=== PATIENT | female | born 1985 | race Caucasian/White ===

== ENCOUNTER 2017-09-13 07:33 | Emergency (ER) | payer BC, SELFPAY ==
[2017-09-13 07:37] VITALS: BP 132/75; PULSE 85; RESP 16; TEMP 36.2; O2SAT 98; BMI 35.3
--- NOTE | 2017-09-13 07:43 | RAD_ITS ---
STUDY: X-RAY - RIGHT HAND REASON FOR EXAM: Female, 31 years old. Right hand pain TECHNIQUE: 3 view(s) of the hand. COMPARISON: Right wrist films 08/25/2010 FINDINGS: Normal radiocarpal articulation. Normal distal radioulnar joint. Normal visualized carpal bones. Normal carpal articulations Normal carpometacarpal articulation of the thumb. Normal second through fifth carpometacarpal joints. There is deformity to the distal fifth metacarpal consistent with remote fracture. I believe this was present on the prior study of 08/25/2010. Normal metacarpophalangeal joint of the thumb. Normal interphalangeal joint of the thumb. Normal proximal and distal phalanges of the thumb. Normal metacarpophalangeal joints of the second through fifth fingers. Normal proximal and distal interphalangeal joints of the second through fifth fingers. Normal phalanges of the second through fifth fingers. The soft tissue structures are unremarkable. RAD/Hand Min 3 Views IMPRESSION: Well healed, old fracture of the fifth metacarpal. No acute bony abnormality. Electronically Signed: Amarjit Valverde DO at 8:19 EDT Tel , Service support ,
[2017-09-13] MEDS: Naproxen 500 MG Tablet PO (07:55)
--- NOTE | 2017-09-13 08:30 | ED.VISSUMM ---
- ER Visit Summary Date of Service: 09/13/17 Chief Complaint: Right hand pain History of Present Illness: The patient is a [address] Julián Kwon. She is right-hand dominant. She reports that this morning she was hitting a door with her right hand when she had the abrupt onset of a sharp pain is 10 out of 10 with movement 8 out of 10 at rest. She is not taking anything for pain. She denies any paresthesias. She denies any other complaints. Physical Examination: Vitals: Stable. Afebrile. General: Well-nourished and well-developed. Head: Normocephalic atraumatic. Neck: Supple, no lymphadenopathy. No JVD. Nontender. Cardiovascular: Regular rate and rhythm. No murmurs. Respiratory: No respiratory distress. Clear to auscultation bilaterally. Abdominal: Soft, nontender, nondistended, normal bowel sounds. No guarding, rebound, or peritoneal signs. Back: Nontender. Extremities: Moderate tenderness palpation over the medial portion of her right hand over the mid to distal fifth metacarpal. No soft tissue swelling. No contusion. She is neurovascular intact distal to this., no edema. Skin: Normal color, no rash. Neurologic: Alert and oriented ?3. Cranial nerves II through XII are intact. Normal strength and sensation. Psych: Normal affect. Test Results: Right hand x-ray shows a well-healed fifth metacarpal fracture with no acute fracture. Emergency Department Course and Treatment: Patient is treated with naproxen. She is resting comfortably. Treatment Plan: She will be discharged prescription for naproxen. Instructed to follow-up with Dr. Julián Kwon in 1 week if not improving. Disposition: To home in improved and stable condition. Impression: 1. Right hand contusion. This note was generated with [employer] dictation software. It may contain incorrect words, spelling, and punctuation that were not noted in review of the chart prior to signing ED Disposition - Plan for ED Patient: Chief Complaint: Upper Extremity Injury Instructions: ED Contusion Hand Prescriptions: Naproxen [Naprosyn] 500 mg PO BID #14 tablet Referrals: Julián Kwon Jr., MD [Primary Care Provider] - 1 Week if not improving
[2017-09-13 08:43] VITALS: BP 118/69; PULSE 72; RESP 15; O2SAT 97
== END 2017-09-13 08:43 | disposition home or self-care (01) ==
LOC: ED 08:00
PROVIDERS: Emergency Provider Emergency Medicine; Family Provider Internal Medicine; PCP Internal Medicine
DX: S60.221A Contusion of right hand, initial encounter (principal); W22.8XXA Striking against or struck by other objects, initial encounter; Y93.9 Activity, unspecified; Y92.9 Unspecified place or not applicable; Y99.9 Unspecified external cause status; Z72.0 Tobacco use; Z79.899 Other long term (current) drug therapy
CPT/HCPCS: 73130; 99283

== ENCOUNTER 2017-12-28 04:06 | Emergency (ER) | payer BC, SELFPAY ==
[2017-12-28 04:07] VITALS: BP 118/79; PULSE 91; RESP 18; TEMP 36.8; O2SAT 98; BMI 38.4
--- NOTE | 2017-12-28 04:20 | ED.VIS.GEN ---
History of Present Illness Chief Complaint: Ear Problem Informant: Patient Onset: Days - 2-3 Context: Gradual Onset Timing: Continuous Quality: sore/ache Location: left ear, w/ radiation into left jaw/neck Current Severity: Moderate Maximum Severity: Moderate Worsened by: pulling on ear Relieved by: nothing Associated Symptoms: none. no fevers, change in hearing, recent swimming, recent URI, ear d/c Recent Illness/Hospitalization: No Past Medical History - Allergies and Home Meds Allergies/Adverse Reactions: Allergies latex Adverse Reaction (Verified 12/28/17 04:07) Itching Primary Care Physician: Julián Kwon Jr., MD [Primary Care Provider] - Past Medical History: None Smoking Status: Current every day smoker Review of Systems General: Denies: Chills, Fever, - - no dizziness Eyes: Denies: Visual changes - bilaterally ENT: Reports: Left ear pain. Denies: Rhinorrhea, Sore throat Cardiovascular: Denies: Chest pain Respiratory: Denies: Dyspnea, Cough Gastrointestinal: Denies: Nausea, Vomiting Physical Exam Vital Signs/Narrative: Vital Signs Temp Pulse Resp BP Pulse Ox 12/28/17 04:07 98.2 F 91 18 118/79 98 Inital Vital Signs reviewed: Yes General: Well nourished, Well developed, - - nad Head: Normocephalic, Atraumatic Eyes: Perrl, EOMI ENT: Moist mucous membranes, No rhinorrhea, TM's clear, - - Edentulous. No gingival abnormality or tenderness. No trismus. Right EAC unremarkable, nontender. Left EAC erythematous posteriorly, very tender, and pain is increased with pulling on pinna and pushing on tragus. No edema of the canal and no discharge.. Negative for: Nasal congestion, Sinus tenderness Neck: Supple, No lymphadenopathy Skin: Normal color, No rash Neurological: Alert, Oriented x3, Cranial nerves II-XII grossly intact, Normal Strength, Normal Sensation, Normal Gait Psychological: Normal affect Diagnostic/Tx/Re-eval - Medical Decision Making Consistent with otitis externa. Will place her on Cortisporin otic suspension drops to her here in the emergency department. ED Disposition - Plan for ED Patient: Disposition: Home or Assisted Living Chief Complaint: Ear Problem Diagnosis: Left otitis externa Instructions: ED Otitis Externa Referrals: Julián Kwon Jr., MD [Primary Care Provider] - 3-5 Days if not improving Additional Instructions: Cortisporin otic suspension: 4 drops to affected ear 3-4 times daily for 5-7 days or until better
[2017-12-28] MEDS: Neomycin Sulfate/Polymyxin/Hc Susp 10 ML Bottle 4 DRP OTIC (04:27)
[2017-12-28 04:32] VITALS: BP 118/79; PULSE 91; RESP 18
== END 2017-12-28 04:32 | disposition home or self-care (01) ==
PROVIDERS: Emergency Provider Emergency Medicine; Family Provider Internal Medicine; PCP Internal Medicine
DX: H60.92 Unspecified otitis externa, left ear (principal); F17.200 Nicotine dependence, unspecified, uncomplicated; Z79.899 Other long term (current) drug therapy
CPT/HCPCS: 99282

== ENCOUNTER 2018-04-02 09:42 | Emergency (ER) | payer BC, SELFPAY ==
[2018-04-02 09:43] VITALS: BP 143/73; PULSE 96; RESP 12; TEMP 37; O2SAT 99; BMI 39.3
--- NOTE | 2018-04-02 09:57 | ED.VISSUMM ---
- ER Visit Summary Date of Service: 04/02/18 Chief Complaint: Abdominal pain History of Present Illness: The patient is a 32 F patient reports epigastric abdominal pain for the past week. Intermittent. Symptoms worse with food. Nausea without vomiting. No diarrhea. Normal bowel movements. Last one this morning. No fever, chills, sweats. No urinary symptoms. Last menstrual period within the last 3 weeks with normal cycles. Denies previous similar symptoms in the past. Patient reports saw her PCP today and was sent to the ED for possible CT scan. Physical Examination: General: Alert and oriented ?3, no acute distress HEENT: Normocephalic, atraumatic. Moist mucosa membranes Neck: supple, nontender. Cardiovascular: Regular rate and rhythm, no murmurs Respiratory: Normal breath sounds, symmetric, no distress Abdomen: Soft, mild epigastric tenderness without guarding or rebound, nondistended. Negative Montes's and McBurney's tenderness. No left lower quadrant tenderness. Extremities: Nontender, no edema, pulses intact ?4 Neuro: no focal neurological deficits. Test Results: White count 10.6, Hemoccult 14.2. Creatinine 0.92. Lipase 68. Liver enzymes normal. Emergency Department Course and Treatment: Patient history concerns for gastritis symptoms with worsening pain with food. No right upper quadrant tenderness. Discuss patient symptoms risks and benefits testing and imaging. She agreed with a GI cocktail which had transient relief. Reevaluation with mild discomfort she would like labs which was obtained and drawn normal ranges. Protonix was started. She is okay not receiving image studies today. She will monitor her stools. She started on Prilosec and Carafate. I did discuss with her physician Dr. Kwon update on plan of care. He reports he will follow up with patient as an outpatient. This was explained to the patient. Treatment Plan: [] Disposition: Discharge Impression: Gastritis with epigastric abdominal pain This note was generated with [employer] dictation software. It may contain incorrect words, spelling, and punctuation that were not noted in review of the chart prior to signing ED Disposition - Plan for ED Patient: Disposition: Home or Assisted Living Chief Complaint: Abd Pain Diagnosis: Gastritis Instructions: ED PUD Vs Gastritis Prescriptions: Omeprazole 40 mg PO DAILY #30 capsule. Sucralfate [Carafate] 1 gm PO 4X/DAY #60 tablet Referrals: Julián Kwon Jr., MD [Primary Care Provider] - 5-7 Days
[2018-04-02] MEDS: Mag Hydrox/Al Hydrox/Simeth 30 ML UDC PO (10:10)
[2018-04-02 10:53] LABS: Absolute Lymphocyte Count 2.63 X10^3/ul (0.83-4.51); Absolute Neutrophil Count 7.2 X10^3/uL (2.0-7.7); Basophil# 0.04 X10^3/uL; Basophil% 0.4 % (0-1); Eosinophil# 0.12 X10^3/uL; Eosinophils% 1.1 % (0-5); Hematocrit 43.2 % (37-47); Hemoglobin 14.1 g/dl (12.0-15.0); Lymphocyte # 2.63 X10^3/ul (4.0); Lymphocyte % 24.9 % (19-41); Mean Corp Hgb Conc 32.6 g/gl (32-36); Mean Corpuscular Hgb 30.2 pg (27.0-32.0); Mean Corpuscular Volume 92.5 fL (81-99); Mean Platelet Vol. 9.4 fl (6.2-12.0); Monocyte# 0.58 X10^3/uL; Monocyte% 5.5 % (0-10); Neutrophil # 7.16 X10^3/uL (2.7-7.7); Neutrophil % 67.9 % (47-70); Platelet Count 375 K/mm3 (150-450); RBC Distribution Width CV 13.3 % (11.6-14.6); RBC Distribution Width SD 44.7 fl (35.1-43.9); Red Blood Count 4.67 M/mm3 (4.2-5.4); White Blood Count 10.6 K/mm3 (4.4-11.0)
[2018-04-02 10:54] LABS: POSITIVE COUNT NO; POSITIVE DIFFERENTIAL NO; POSITIVE MORPHOLOGY NO
[2018-04-02 11:08] LABS: BUN 10 mg/dL (7-18); Creatinine, Serum 0.92 mg/dL (0.55-1.02); Estimated Creatinine Clearance 73.96 ml/min; Glucose 78 mg/dL (74-106)
[2018-04-02 11:09] LABS: ALB/GLOB Ratio 0.9 RATIO (0.9-2.4); AST(SGOT) 13 U/L (15-37); Alanine Aminotransfer ALT/SGPT 18 U/L (13-56); Albumin, Serum 3.5 g/dL (3.2-5.0); Alkaline Phosphatase 91 U/L (45-117); Anion Gap 5 (5-15); BUN/Creat Ratio 10.9 RATIO (10-20); Calcium,Total 8.3 mg/dL (8.5-10.1); Chloride 104 mmol/L (98-107); EST Glomerular Filtration Rate 77 mL/min (>60); Est Glom Filt Rate - Afr Amer 93 mL/min (>60); Lipase 68 U/L (73-393); Potassium 3.9 mmol/L (3.5-5.1); Protein, Total 7.5 g/dL (6.4-8.2); Sodium Level 137 mmol/L (136-145)
[2018-04-02 11:28] LABS: Pregnancy, Serum, hCG Quali. NEGATIVE Negative (0-9 Nonpreg)
[2018-04-02 11:47] VITALS: RESP 16
== END 2018-04-02 11:54 | disposition home or self-care (01) ==
PROVIDERS: Emergency Provider Emergency Medicine; Family Provider Internal Medicine; PCP Internal Medicine
DX: K29.70 Gastritis, unspecified, without bleeding (principal); F32.9 Major depressive disorder, single episode, unspecified; F98.8 Other specified behavioral and emotional disorders with onset usually occurring in childhood and adolescence; Z72.0 Tobacco use; Z79.899 Other long term (current) drug therapy
CPT/HCPCS: 80053; 83690; 84703; 85025; 96365; 99284

== ENCOUNTER → 2018-07-26 11:44 | Outpatient (CLI) | payer BC, SELFPAY ==
[2018-07-26 11:42] VITALS: BMI 40.5
[2018-07-26 12:51] LABS: Absolute Lymphocyte Count 3.21 X10^3/ul (0.83-4.51); Absolute Neutrophil Count 8.3 X10^3/uL (2.0-7.7); Basophil# 0.03 X10^3/uL; Basophil% 0.2 % (0-1); Eosinophil# 0.17 X10^3/uL; Eosinophils% 1.3 % (0-5); Hematocrit 43.8 % (37-47); Hemoglobin 14.1 g/dl (12.0-15.0); Lymphocyte # 3.21 X10^3/ul (4.0); Lymphocyte % 25.2 % (19-41); Mean Corp Hgb Conc 32.2 g/gl (32-36); Mean Corpuscular Hgb 29.1 pg (27.0-32.0); Mean Corpuscular Volume 90.3 fL (81-99); Mean Platelet Vol. 10.2 fl (6.2-12.0); Monocyte# 0.97 X10^3/uL; Monocyte% 7.6 % (0-10); Neutrophil # 8.33 X10^3/uL (2.7-7.7); Neutrophil % 65.4 % (47-70); Platelet Count 409 K/mm3 (150-450); Red Blood Count 4.85 M/mm3 (4.2-5.4); White Blood Count 12.8 K/mm3 (4.4-11.0)
[2018-07-26 12:57] LABS: POSITIVE COUNT NO; POSITIVE DIFFERENTIAL NO; POSITIVE MORPHOLOGY NO
== END ==
LOC: BIMLAB 11:45
PROVIDERS: Family Provider Internal Medicine; PCP Internal Medicine; Visit Provider Internal Medicine
DX: D72.829 Elevated white blood cell count, unspecified (principal)
CPT/HCPCS: 36415; 85025

== ENCOUNTER → 2018-09-27 09:23 | Outpatient (CLI) | payer BC, SELFPAY ==
[2018-09-27 09:00] VITALS: BMI 40.9
[2018-09-27 12:42] LABS: Amphetamine Urine VISTA POSITIVE (<1000 ng/mL); Barbiturate Urine VISTA NEGATIVE (< 200 ng/mL); Benzodiazepine Urine VISTA NEGATIVE (< 200 ng/mL); Cocaine Urine VISTA NEGATIVE (< 300 ng/mL); Ecstacy Urine VISTA POSITIVE (< 500 ng/mL); Methadone Urine VISTA NEGATIVE (< 300 ng/mL); PCP Urine VISTA NEGATIVE (< 25 ng/mL); THC Urine VISTA NEGATIVE (< 50 ng/mL); Vista UDS pH Range 6
== END ==
LOC: BIMLAB 09:24
PROVIDERS: Family Provider Internal Medicine; PCP Internal Medicine; Visit Provider Internal Medicine
DX: F90.9 Attention-deficit hyperactivity disorder, unspecified type (principal)
CPT/HCPCS: 80307

== ENCOUNTER → 2019-01-03 08:23 | Outpatient (CLI) | payer BC, SELFPAY ==
[2019-01-03 08:02] VITALS: BMI 40.4
[2019-01-03 12:53] LABS: Amphetamine Urine VISTA POSITIVE (<1000 ng/mL); Barbiturate Urine VISTA NEGATIVE (< 200 ng/mL); Benzodiazepine Urine VISTA NEGATIVE (< 200 ng/mL); Cocaine Urine VISTA NEGATIVE (< 300 ng/mL); Ecstacy Urine VISTA NEGATIVE (< 500 ng/mL); Methadone Urine VISTA NEGATIVE (< 300 ng/mL); PCP Urine VISTA NEGATIVE (< 25 ng/mL); THC Urine VISTA NEGATIVE (< 50 ng/mL); Vista UDS pH Range 5
== END ==
LOC: BIMLAB 08:24
PROVIDERS: Family Provider Internal Medicine; PCP Internal Medicine; Visit Provider Internal Medicine
DX: F90.9 Attention-deficit hyperactivity disorder, unspecified type (principal)
CPT/HCPCS: 80307

== ENCOUNTER → 2019-04-04 08:13 | Outpatient (CLI) | payer BC, SELFPAY ==
[2019-04-04 07:56] VITALS: BMI 41.6
[2019-04-04 12:38] LABS: Amphetamine Urine VISTA POSITIVE (<1000 ng/mL); Barbiturate Urine VISTA NEGATIVE (< 200 ng/mL); Benzodiazepine Urine VISTA NEGATIVE (< 200 ng/mL); Cocaine Urine VISTA NEGATIVE (< 300 ng/mL); Ecstacy Urine VISTA NEGATIVE (< 500 ng/mL); Methadone Urine VISTA NEGATIVE (< 300 ng/mL); PCP Urine VISTA NEGATIVE (< 25 ng/mL); THC Urine VISTA NEGATIVE (< 50 ng/mL); Vista UDS pH Range 5
[2019-04-04 12:38] LABS: Thyroid Stim Hormone (TSH) 1.38 uIU/mL (0.358-3.74)
== END ==
PROVIDERS: Family Provider Internal Medicine; PCP Internal Medicine; Visit Provider Nurse Practitioner Family
DX: F90.9 Attention-deficit hyperactivity disorder, unspecified type (principal); F15.20 Other stimulant dependence, uncomplicated; E66.9 Obesity, unspecified
CPT/HCPCS: 36415; 80307; 84443

== ENCOUNTER → 2019-10-01 12:34 | Outpatient (CLI) | payer BC, SELFPAY ==
[2019-10-01 08:19] VITALS: BMI 42.8
[2019-10-01 13:46] LABS: Absolute Lymphocyte Count 2.78 X10^3/uL (0.83-4.51); Absolute Neutrophil Count 9.7 X10^3/uL (2.0-7.7); Basophil# 0.07 X10^3/uL; Basophil% 0.5 % (0-1); Eosinophil# 0.13 X10^3/uL; Hematocrit 41.5 % (37-47); Lymphocyte # 2.78 X10^3/ul (4.0); Lymphocyte % 20.6 % (19-41); Mean Corp Hgb Conc 31.3 g/dL (32-36); Mean Corpuscular Hgb 28.1 pg (27.0-32.0); Mean Corpuscular Volume 89.6 fL (81-99); Mean Platelet Vol. 10.2 fl (6.2-12.0); Monocyte# 0.82 X10^3/uL; Monocyte% 6.1 % (0-10); NRBC Flagged by Analyzer 0 % (0-5); Neutrophil # 9.65 X10^3/uL (2.7-7.7); Neutrophil % 71.4 % (47-70); Platelet Count 472 K/mm3 (150-450); RBC Distribution Width CV 14.8 % (11.6-14.6); Red Blood Count 4.63 M/mm3 (4.2-5.4); White Blood Count 13.5 K/mm3 (4.4-11.0)
[2019-10-01 14:08] LABS: ALB/GLOB Ratio 0.8 RATIO (0.9-2.4); AST(SGOT) 16 U/L (15-37); Alanine Aminotransfer ALT/SGPT 22 U/L (13-56); Albumin, Serum 3.7 g/dL (3.2-5.0); Alkaline Phosphatase 109 U/L (45-117); Anion Gap 8 (5-15); BUN 6 mg/dL (7-18); BUN/Creat Ratio 6.5 RATIO (10-20); Calcium,Total 9.1 mg/dL (8.5-10.1); Chloride 105 mmol/L (98-107); Creatinine, Serum 0.93 mg/dL (0.55-1.02); EST Glomerular Filtration Rate 75 mL/min (>60); Est Glom Filt Rate - Afr Amer 90 mL/min (>60); Globulin 4.4 g/dL (2.2-4.2); Glucose 51 mg/dL (74-106); Potassium 3.7 mmol/L (3.5-5.1); Protein, Total 8.1 g/dL (6.4-8.2); Sodium Level 139 mmol/L (136-145)
[2019-10-01 14:13] LABS: Amphetamine Urine VISTA POSITIVE (<1000 ng/mL); Barbiturate Urine VISTA NEGATIVE (< 200 ng/mL); Benzodiazepine Urine VISTA NEGATIVE (< 200 ng/mL); Cocaine Urine VISTA NEGATIVE (< 300 ng/mL); Ecstacy Urine VISTA NEGATIVE (< 500 ng/mL); Methadone Urine VISTA NEGATIVE (< 300 ng/mL); PCP Urine VISTA NEGATIVE (< 25 ng/mL); THC Urine VISTA NEGATIVE (< 50 ng/mL); Vista UDS pH Range 6
== END ==
PROVIDERS: PCP Internal Medicine; Visit Provider Nurse Practitioner Family
DX: F90.9 Attention-deficit hyperactivity disorder, unspecified type (principal)
CPT/HCPCS: 80053; 80307; 85025

== ENCOUNTER → 2019-11-04 | Outpatient (CLI) | payer BC, SELFPAY ==
[2019-11-04 09:29] VITALS: BMI 41.6
== END | disposition home or self-care (01) ==
LOC: LABSPEC 12:19
PROVIDERS: PCP Internal Medicine; Referring Provider Internal Medicine; Visit Provider Internal Medicine
DX: Z20.828 Contact with and (suspected) exposure to other viral communicable diseases (principal); J02.9 Acute pharyngitis, unspecified
CPT/HCPCS: 87635; 87880; U0003

== ENCOUNTER 2019-12-08 07:21 | Emergency (ER) | payer BC, SELFPAY ==
[2019-11-04 09:29] VITALS: BMI 41.6
[2019-12-08 07:22] VITALS: BP 146/77; PULSE 110; RESP 17; TEMP 36.5; O2SAT 97; BMI 35.4
--- NOTE | 2019-12-08 07:28 | CT_ITS ---
STUDY: CT ABDOMEN AND PELVIS WITHOUT CONTRAST REASON FOR EXAM: Female, 34 years old. DIVERTICULITIS, ABD PAIN, NAUSEA, ELEVATED WBC RADIATION DOSAGE (If Supplied By Facility): CTDIvol = ( 16.49 ) mGy, DLP = ( 1192.68 ) mGycm TECHNIQUE: Transaxial images were obtained from the dome of the diaphragm to the symphysis pubis without oral contrast, and without intravenous contrast. Sagittal and coronal images were reconstructed. Individualized dose optimization techniques were used for this CT. COMPARISON: Comparison is made with prior examination dated 10-14-12. FINDINGS: There are minimal increased markings at the lung bases suggestive of bibasilar atelectasis. The visualized portions of the heart are within normal limits. There is decreased attenuation of the liver consistent with steatosis. Normal gallbladder and extrahepatic biliary system. Normal spleen. Normal pancreas. Normal bilateral adrenal glands. Normal right kidney. Normal left kidney. Normal visualized stomach. Normal small intestine. There are multiple colonic diverticula consistent with diverticulosis. The appendix is visualized and appears normal. Normal abdominal aorta. Normal inferior vena cava. There is borderline retroperitoneal lymphadenopathy with enlarged nodes no greater than 10mm in the short axis diameter. Normal urinary bladder. IUD is seen within the uterus. Small follicles are seen in both ovaries. Normal abdominal wall. Normal osseous structures. CT/Abdomen/Pelvis W IV Cont ONLY IMPRESSION: Fatty infiltration of the liver. IUD is seen within the uterus. Scattered sigmoid diverticula. Small follicles are seen in both ovaries. Electronically Signed: Anthony Berrios, at 9:49 EDT , Service support ,
--- NOTE | 2019-12-08 07:29 | ED.DCSUM_ITS ---
History of Present Illness Chief Complaint: Abd Pain Informant: Patient Onset: Days Context: Gradual Onset Timing: Intermittent Current Severity: Moderate Maximum Severity: Moderate Narrative: The patient is a 34-year-old female medical history significant for 2 prior C- sections the presents to the emergency department with left lower quadrant pain and chills. Patient states that last week, she had a lot of watery diarrhea. She states over the past 2 to 3 days, she is had a lot more cramping pain in her left lower quadrant. She has had chills and nausea. She denies any fevers. She has no history of inflammatory bowel disease. She denies any blood in the bowel movements. She states the pain will come in waves. She states she is never really had anything like this before. Prior similar symptoms: No Recent Illness/Hospitalization: No Past Medical History - Allergies and Home Meds Allergies/Adverse Reactions: Allergies latex Adverse Reaction (Verified 12/08/19 07:22) Itching Primary Care Physician: Susan Rollins MD [Primary Care Provider] - Prior records reviewed: Yes Past Medical History: None Surgical History: - - Prior Smoking Status: Current every day smoker Review of Systems General: Denies: Chills, Fever, Sweats Eyes: Denies: Visual changes - bilaterally, Diplopia ENT: Denies: Rhinorrhea, Sore throat Cardiovascular: Denies: Chest pain, Palpitations Respiratory: Denies: Dyspnea, Cough, Dyspnea on exertion Gastrointestinal: Reports: Abdominal pain, Nausea, Diarrhea. Denies: Vomiting, Melena, Hematochezia Genitourinary: Denies: Dysuria, Hematuria, Frequency Musculoskeletal: Denies: Back pain, Extremity Pain Skin: Denies: Rash, Wounds Neurological: Denies: Headache, Weakness, Numbness Physical Exam Vital Signs/Narrative: Vital Signs Temp Pulse Resp BP Pulse Ox 12/08/19 07:22 97.7 F L 110 H 17 146/77 H 97 Inital Vital Signs reviewed: Yes General: Well nourished, Well developed, No Acute Distress Head: Normocephalic, Atraumatic Eyes: Perrl, EOMI ENT: Moist mucous membranes, No rhinorrhea Neck: Supple, Nontender Cardiovascular: Regular rate, Regular rhythm, No murmurs Respiratory: No distress, CTA bilaterally, Chest nontender Abdomen: Soft, Nondistended, Normal bowel sounds, Tender. Negative for: Guarding, Rebound tenderness Back: Nontender, Normal Inspection Extremities: Nontender, No edema Skin: Normal color, No rash Neurological: Alert, Oriented x3, Cranial nerves II-XII grossly intact, Normal S trength, Normal Sensation Psychological: Normal affect, Normal Mood Diagnostic/Tx/Re-eval Clinical Impression(s) from Imaging Studies Abdomen/Pelvis CT 12/08/19 07:28 IMPRESSION: Fatty infiltration of the liver. IUD is seen within the uterus. Scattered sigmoid diverticula. Small follicles are seen in both ovaries. Electronically Signed: Anthony Berrios, at 9:49 EDT , Service support , Abnormal Lab Results 12/08/19 12/08/19 12/08/19 07:55 07:55 07:55 WBC 12.3 H RBC 4.24 Hgb 12.2 Hct 38.1 MCV 89.9 MCH 28.8 MCHC 32.0 RDW Std Deviation 45.4 H RDW Coeff of Kim 14.1 Plt Count 397 MPV 9.9 Immature Gran % (Auto) 0.200 Neut % (Auto) 70.6 H Lymph % (Auto) 21.7 [place] % (Auto) 6.0 Eos % (Auto) 1.0 Baso % (Auto) 0.5 Absolute Neuts (auto) 8.7 H Absolute Lymphs (auto) 2.67 Nucleated RBC % 0 Sodium 140 Potassium 3.6 Chloride 107 Carbon Dioxide 25.0 Anion Gap 8 BUN 12 Creatinine 0.91 Estim Creat Clear Calc 73.42 Est GFR (MDRD) Af Amer 92 Est GFR (MDRD) Non-Af 76 BUN/Creatinine Ratio 13.2 Glucose 85 Calcium 8.5 Total Bilirubin 0.40 AST 7 L ALT 16 Alkaline Phosphatase 104 Total Protein 8.0 Albumin 3.5 Globulin 4.5 H Albumin/Globulin Ratio 0.8 L Serum , Qual NEGATIVE Urine Color Urine Clarity Urine pH Ur Specific [place] Urine Protein Urine Glucose (UA) Urine Ketones Urine Occult Blood Urine Nitrite Urine Bilirubin Urine Urobilinogen Ur Leukocyte Esterase 12/08/19 09:45 WBC RBC Hgb Hct MCV MCH MCHC RDW Std Deviation RDW Coeff of Kim Plt Count MPV Immature Gran % (Auto) Neut % (Auto) Lymph % (Auto) [place] % (Auto) Eos % (Auto) Baso % (Auto) Absolute Neuts (auto) Absolute Lymphs (auto) Nucleated RBC % Sodium Potassium Chloride Carbon Dioxide Anion Gap BUN Creatinine Estim Creat Clear Calc Est GFR (MDRD) Af Amer Est GFR (MDRD) Non-Af BUN/Creatinine Ratio Glucose Calcium Total Bilirubin AST ALT Alkaline Phosphatase Total Protein Albumin Globulin Albumin/Globulin Ratio Serum , Qual Urine Color Yellow Urine Clarity Sl. Cloudy Urine pH 5.0 Ur Specific [place] 1.015 Urine Protein 30 H Urine Glucose (UA) Normal Urine Ketones Negative Urine Occult Blood 25 H Urine Nitrite Negative Urine Bilirubin Negative Urine Urobilinogen Normal Ur Leukocyte Esterase 25 H - Medical Decision Making The patient is some tenderness in the left lower quadrant. There is no rebound or guarding. Her symptoms do seem consistent with diverticulitis. She has had diarrhea, now cramping and chills. Metabolic work-up was pursued. She does have a mild leukocytosis, otherwise labs are unremarkable. Patient underwent CT. She does have diverticulosis without evidence of perforation or abscess. Clinically, I do feel that this is a mild diverticulitis especially given the symptoms and leukocytosis. I am going to treat the patient with Augmentin. She is comfortable with this plan of care and will be discharged home. Impression 1. Acute diverticulitis ED Disposition - Plan for ED Patient: Disposition: Home or Assisted Living Instructions: ED Diverticulitis Prescriptions: Amox/Clavulanate Tablet [Augmentin Tablet] 875 mg PO Q12H #20 tab Prescription Printed Dicyclomine HCl [Bentyl] 20 mg PO TIDAC #20 cap Prescription Printed Ondansetron [Zofran Odt] 4 mg PO Q8H PRN PRN #10 tab PRN Reason: Nausea Prescription Printed Referrals: Susan Rollins MD [Primary Care Provider] -
[2019-12-08] MEDS: 0.9% Normal Saline 1,000 ML 1000 ML IV (08:03)
[2019-12-08] MEDS: Ondansetron 4 MG/2 ML Vial IV (08:04)
[2019-12-08] MEDS: Ketorolac 30 MG/ML Syringe IV (08:04)
[2019-12-08 08:09] LABS: Absolute Lymphocyte Count 2.67 X10^3/uL (0.83-4.51); Absolute Neutrophil Count 8.7 X10^3/uL (2.0-7.7); Basophil# 0.06 X10^3/uL; Basophil% 0.5 % (0-1); Eosinophil# 0.12 X10^3/uL; Hematocrit 38.1 % (37-47); Hemoglobin 12.2 g/dL (12.0-15.0); Lymphocyte # 2.67 X10^3/ul (4.0); Lymphocyte % 21.7 % (19-41); Mean Corpuscular Hgb 28.8 pg (27.0-32.0); Mean Corpuscular Volume 89.9 fL (81-99); Mean Platelet Vol. 9.9 fl (6.2-12.0); Monocyte# 0.74 X10^3/uL; NRBC Flagged by Analyzer 0 % (0-5); Neutrophil # 8.71 X10^3/uL (2.7-7.7); Neutrophil % 70.6 % (47-70); Platelet Count 397 K/mm3 (150-450); RBC Distribution Width CV 14.1 % (11.6-14.6); RBC Distribution Width SD 45.4 fl (35.1-43.9); Red Blood Count 4.24 M/mm3 (4.2-5.4); White Blood Count 12.3 K/mm3 (4.4-11.0)
[2019-12-08 08:25] LABS: ALB/GLOB Ratio 0.8 RATIO (0.9-2.4); AST(SGOT) 7 U/L (15-37); Alanine Aminotransfer ALT/SGPT 16 U/L (13-56); Albumin, Serum 3.5 g/dL (3.2-5.0); Alkaline Phosphatase 104 U/L (45-117); Anion Gap 8 (5-15); BUN 12 mg/dL (7-18); BUN/Creat Ratio 13.2 RATIO (10-20); Calcium,Total 8.5 mg/dL (8.5-10.1); Chloride 107 mmol/L (98-107); Creatinine, Serum 0.91 mg/dL (0.55-1.02); EST Glomerular Filtration Rate 76 mL/min (>60); Est Glom Filt Rate - Afr Amer 92 mL/min (>60); Estimated Creatinine Clearance 73.42 ml/min; Globulin 4.5 g/dL (2.2-4.2); Glucose 85 mg/dL (74-106); Potassium 3.6 mmol/L (3.5-5.1); Sodium Level 140 mmol/L (136-145)
[2019-12-08 08:45] LABS: Internal QC Validated? YES +Cl - CLEAR BKGD; Pregnancy, Serum, hCG Quali. NEGATIVE Negative
[2019-12-08 09:56] VITALS: BP 122/75; PULSE 82; RESP 16; O2SAT 100
[2019-12-08 10:00] LABS: Mucous, Urine 0 SEEN /hpf (<or=2+)
[2019-12-08 10:06] LABS: Color, Urine Yellow (Yellow); Glucose, Dipstick Normal (Normal); Ketone-Dipstick Negative (Negative); Leukocyte Esterase-Dipstick 25 /ul (Negative); Nitrite-Dipstick Negative (Negative); Occult Blood-Urine 25 /ul (Negative); Protein-Dipstick 30 mg/dl (Negative); Specific Gravity, Urine 1.015 (1.002-1.030); Urine Bilirubin Dipstick Negative (Negative); Urine Clarity Sl. Cloudy (Clear); Urine Urobilinogen Normal (Normal)
[2019-12-08 10:12] LABS: Bacteria 1+ /hpf (None Seen); Red Blood Cells-Urine 0-5 SEEN /hpf (0-5); Squamous Epithelial Cells - UA 0-5 SEEN /hpf (5-10); White Blood Cells 0-5 SEEN /hpf (0-5)
== END 2019-12-08 10:09 | disposition home or self-care (01) ==
LOC: ED 08:10
PROVIDERS: Emergency Provider Emergency Medicine; PCP Internal Medicine
DX: K57.32 Diverticulitis of large intestine without perforation or abscess without bleeding (principal); F17.200 Nicotine dependence, unspecified, uncomplicated; Z79.899 Other long term (current) drug therapy; Z97.5 Presence of (intrauterine) contraceptive device
CPT/HCPCS: 74177; 80053; 81001; 84703; 85025; 96361; 96374; 96375; 99283; J7030; Q9967; J2405

== ENCOUNTER → 2019-12-31 08:31 | Outpatient (CLI) | payer BC, SELFPAY ==
[2019-12-31 08:08] VITALS: BMI 41.4
[2019-12-31 12:43] LABS: Cholesterol 179 mg/dL (200); High Density Lipoprotein 28 mg/dL; Triglycerides 150 mg/dL; Very Low Density Lipoprotein 30 mg/dL (5-40)
[2019-12-31 12:59] LABS: Amphetamine Urine VISTA POSITIVE (<1000 ng/mL); Barbiturate Urine VISTA NEGATIVE (< 200 ng/mL); Benzodiazepine Urine VISTA NEGATIVE (< 200 ng/mL); Cocaine Urine VISTA NEGATIVE (< 300 ng/mL); Ecstacy Urine VISTA NEGATIVE (< 500 ng/mL); Methadone Urine VISTA NEGATIVE (< 300 ng/mL); PCP Urine VISTA NEGATIVE (< 25 ng/mL); THC Urine VISTA NEGATIVE (< 50 ng/mL); Vista UDS pH Range 5
[2019-12-31 13:19] LABS: Hepatitis C Antibody Non-Reactive (Nonreactive)
== END ==
LOC: BIMLAB 08:32
PROVIDERS: PCP Internal Medicine; Referring Provider Nurse Practitioner Family; Visit Provider Nurse Practitioner Family
DX: B19.20 Unspecified viral hepatitis C without hepatic coma (principal); K76.0 Fatty (change of) liver, not elsewhere classified; F90.9 Attention-deficit hyperactivity disorder, unspecified type
CPT/HCPCS: 36415; 80061; 80307; 86803

== ENCOUNTER → 2020-03-31 | Outpatient (CLI) | payer BC, SELFPAY ==
[2020-03-31 08:05] VITALS: BMI 42.3
[2020-03-31 16:44] LABS: Amphetamine Urine VISTA POSITIVE (<1000 ng/mL); Barbiturate Urine VISTA NEGATIVE (< 200 ng/mL); Benzodiazepine Urine VISTA NEGATIVE (< 200 ng/mL); Cocaine Urine VISTA NEGATIVE (< 300 ng/mL); Ecstacy Urine VISTA NEGATIVE (< 500 ng/mL); Methadone Urine VISTA NEGATIVE (< 300 ng/mL); PCP Urine VISTA NEGATIVE (< 25 ng/mL); THC Urine VISTA NEGATIVE (< 50 ng/mL); Vista UDS pH Range 5
== END | disposition home or self-care (01) ==
LOC: LABSPEC 13:13
PROVIDERS: PCP Internal Medicine; Referring Provider Nurse Practitioner Family; Visit Provider Nurse Practitioner Family
DX: F90.9 Attention-deficit hyperactivity disorder, unspecified type (principal)
CPT/HCPCS: 80307

== ENCOUNTER 2020-06-02 07:22 | Emergency (ER) | payer BC, SELFPAY ==
[2020-05-26 09:53] VITALS: BMI 42.0
[2020-06-02 07:23] VITALS: BP 122/80; PULSE 117; RESP 16; TEMP 35; O2SAT 97; BMI 42.3
--- NOTE | 2020-06-02 07:38 | ED.VIS.EYE ---
History of Present Illness Chief Complaint: Eye Problem Informant: Patient Location: Left Eye Onset: Yesterday Context: Sudden Onset Timing: Continuous Current Severity: Moderate Maximum Severity: Severe Worsened by: Blanking and light Relieved by: Nothing Associated Symptoms - Eyes: Burning, Drainage, Foreign body sensation, Itching, Pain, Redness Visual Changes: left: Blurred vision - Blurring improves with blinking History of injury: No Visual correction: None Narrative: Patient is a 34-year-old woman who presents with left eye pain, redness, gritty foreign body sensation, light sensitivity, slight drainage. She denies matting of her eyelashes. She does not wear contacts or glasses. She denies history of glaucoma. She denies history of diabetes or hypertension. There is no history of trauma. She denies headache. She denies nausea or vomiting. She denies rash. She states she has been rubbing her eye. Prior similar symptoms: No Recent Illness/Hospitalization: No - Past Medical History (1) ADHD Status: Chronic (2) Anemia Status: Chronic (3) Chronic headaches Status: Chronic (4) Depression Status: Chronic Past Medical History - Allergies and Home Meds Allergies/Adverse Reactions: Allergies latex Adverse Reaction (Verified 06/02/20 07:37) Itching Primary Care Physician: Susan Rollins MD [Primary Care Provider] - Prior records reviewed: Yes Surgical History: - - Prior Lives: Spouse/ Significant Other Smoking Status: Light Smoker (<10/day) Alcohol: None Drugs: None Review of Systems General: Denies: Chills, Fever, Malaise, Subjective Eyes: Reports: Blurred vision - left, - - Photophobia, redness, drainage. Denies: Visual changes - bilaterally, Diplopia ENT: Denies: Bilateral ear pain, Rhinorrhea, Sore throat Gastrointestinal: Denies: Abdominal pain, Nausea, Vomiting Skin: Denies: Rash, Wounds Neurological: Denies: Headache, Weakness, Parasthesia Hematologic: Denies: Easy bruising, Easy bleeding Allergy: Denies: Uticaria, Swelling of the mouth, Swelling of the tongue Physical Exam Visual Acuity: left: 20/30 - 2024-05 Visual Acuity: Uncorrected Eyelid: No foreign body, Edema to left eyelid - Due to rubbing, - - There is no erythema, there is no hordeolum and there is no ptosis. Right Conjunctiva/Sclera: Normal inspection, No foreign body, No erythema Left Conjunctiva/Sclera: No foreign body, Diffuse focal injection Right Cornea: Normal inspection, No foreign body, No abrasion Left Cornea: No foreign body, No abrasion, - - There is no dendritic lesion noted. There is no punctate keratitis. Extraocular Motion: Normal exam, No pain, No palsy, No nystagmus Pupils: Normal accomodation, PERRL Right pupil size in mm: 3 mm Left pupil size in mm: 3 mm Anterior chamber: Flare left, - - There is photophobia tube direct and consensual light on the left. Posterior Segment: Normal fundoscopic exam, - - The disc ratio normal. There is no papilledema. Vital Signs/Narrative: Vital Signs Temp Pulse Resp BP Pulse Ox 06/02/20 07:23 95 F L 117 H 16 122/80 H 97 Inital Vital Signs reviewed: Yes General: Well nourished, Well developed, Obese Head: Normocephalic, Atraumatic ENT: Moist mucous membranes, No rhinorrhea Neck: Supple, Nontender, No lymphadenopathy, No JVD Skin: Normal color, No rash, No Trauma. Negative for: Cyanosis, Diaphoresis, Jaundice Neurological: Alert, Oriented x3, Cranial nerves II-XII grossly intact, Normal Strength, Normal Sensation, Normal Gait Psychological: Normal affect Diagnostic/Tx/Re-eval - Medical Decision Making Patient has evidence of conjunctivitis and does have photophobia to direct and consensual light. There appears to be flare anterior chamber. Will treat with mydriatic and antibiotics. She was referred to field artillery crewmember on-call Dr. Ryan Gaines. She was given a work excuse. ED Disposition - Plan for ED Patient: Disposition: Home or Assisted Living Diagnosis: Conjunctivitis, acute, left eye, Iritis due to infection Instructions: ED Conjunctivitis, Nonspecific, ED Iritis Referrals: Susan Rollins MD [Primary Care Provider] - Ryan Gaines MD [STAFF PHYSICIAN] - 1 Day for another exam Additional Instructions: 1. Call Dr. Gaines's office to be seen tomorrow morning 2. Instill antibiotic drops every 2-4 hours while awake. 3. Instill home atropine every 6-8 hours.
[2020-06-02] MEDS: Ciprofloxacin 0.3% 2.5ml Bottle 1 DRP LEFT EYE (08:36)
[2020-06-02] MEDS: Atropine Sulfate 1% 2 ml Bottle 1 DRP LEFT EYE (08:57)
== END 2020-06-02 08:58 | disposition home or self-care (01) ==
PROVIDERS: Emergency Provider Emergency Medicine; PCP Internal Medicine
DX: H10.32 Unspecified acute conjunctivitis, left eye (principal); H20.9 Unspecified iridocyclitis; E66.9 Obesity, unspecified; F90.9 Attention-deficit hyperactivity disorder, unspecified type; F32.9 Major depressive disorder, single episode, unspecified; F17.200 Nicotine dependence, unspecified, uncomplicated; Z79.899 Other long term (current) drug therapy
CPT/HCPCS: 99282

== ENCOUNTER → 2020-06-02 09:08 | Outpatient (CLI) | payer BC, SELFPAY ==
[2020-06-02 07:23] VITALS: BMI 42.3
--- NOTE | 2020-06-02 09:13 | RAD_ITS ---
STUDY: X-RAY - LEFT SHOULDER REASON FOR EXAM: Female, 34 years old. PAIN IN LEFT SHOULDER. NO KNOWN INJURY. TECHNIQUE: 4 view(s) of the shoulder. COMPARISON: None. FINDINGS: Normal glenohumeral articulation. Normal acromioclavicular joint. Normal acromion. Normal humeral head and visualized proximal humerus. The soft tissue structures are unremarkable. Normal visualized pulmonary apex. RAD/Shoulder min 2 Views IMPRESSION: Normal x-ray examination of the shoulder. Electronically Signed: Anthony Berrios MD at 15:22 EST , Service support ,
== END ==
LOC: RAD 09:10
PROVIDERS: PCP Internal Medicine; Referring Provider Nurse Practitioner Family; Visit Provider Nurse Practitioner Family
DX: M25.512 Pain in left shoulder (principal)
CPT/HCPCS: 73030

== ENCOUNTER → 2020-06-21 07:17 | Outpatient (CLI) | payer BC, SELFPAY ==
[2020-06-02 07:23] VITALS: BMI 42.3
--- NOTE | 2020-06-21 07:24 | MRI_ITS ---
STUDY: MRI ORBITS WITH AND WITHOUT CONTRAST REASON FOR EXAM: Female, 34 years old. L EYE PRESSURE WITH BLURRING AND FLOATERS X WEEKS TECHNIQUE: Standardized fat and water weighted pulse sequences were obtained in all 3 orthogonal planes, pre-and post contrast administration. 20CC IV DOTAREM was administered for the contrast portion of the examination. COMPARISON: None. FINDINGS: Flattening the posterior sclera bilaterally worrisome for papilledema. Mild dilatation optic nerve sheaths laterally. Findings are concerning for idiopathic intracranial hypertension (pseudotumor cerebri). Normal bilateral intraconal and extraconal spaces. Normal bilateral extraocular muscles. Normal optic chiasm and post-chiasmatic tracts. Normal sella turcica, pituitary gland, infundibular stalk, and hypothalamus. Normal bilateral cavernous sinuses. Normal tectal plate and pineal gland. Normal flow voids within the major intracranial circulation suggesting patency by spin echo criteria. Normal size of the ventricles and extra-axial spaces for the patient''s age. Normal white matter tracts of the supratentorial brain. Normal bilateral basal ganglia. Normal thalami. There is no extra-axial fluid accumulation. Normal midbrain, rosey and medulla. Normal cerebellum. Normal basal cisterns. MRI/Brain W/WO Contrast IMPRESSION: Suspect idiopathic intracranial hypertension (pseudotumor cerebri). Electronically Signed: Julián Bingham MD at 17:37 EST Tel , Service support ,
== END ==
PROVIDERS: PCP Internal Medicine; Referring Provider Ophthalmology; Visit Provider Ophthalmology
DX: H47.13 Papilledema associated with retinal disorder (principal)
CPT/HCPCS: 70553; A9575

== ENCOUNTER → 2020-07-05 08:37 | Outpatient (CLI) | payer BC, SELFPAY ==
[2020-06-30 08:11] VITALS: BMI 41.8
[2020-07-05 08:59] VITALS: BP 116/71; PULSE 101; RESP 18; TEMP 36.9; O2SAT 100; BMI 42.1
--- NOTE | 2020-07-05 09:00 | RAD_ITS ---
PROCEDURE: Fluoroscopic guided Lumbar Puncture. DATE: 07/05/2020 CLINICAL INDICATION: Headaches. Papilledema. PHYSICIAN: Anthony Berrios M.D. MEDICATIONS: 1% lidocaine administered subcutaneously for local anesthesia. ACCESS SITE: Lower posterior back. NEEDLE: 22-gauge spinal needle. SPECIMEN: Approximately 13 mL clear]CSF fluid. FLUOROSCOPY TIME (if supplied): (4:43) minutes/seconds COMPLICATIONS: None immediate. The risks, benefits, and alternatives to the procedure were explained to the patient. The specific risks of bleeding, infection, and neurovascular injury were detailed and accepted. Witnessed informed consent was obtained. The patient was placed on the fluoroscopic table in the prone position. The level for needle entry was determined and marked. The overlying skin was cleaned and prepped in the usual sterile fashion. 2% lidocaine was administered subcutaneously for local anesthesia. Under fluoroscopic guidance a 22-gauge spinal needle was advanced. The thecal sac was entered at the L3- L4 vertebral level. The inner stylet was removed. There was spontaneous flow of clear CSF fluid. The opening pressure was 9 mm. The patient was placed in a reversed Trendelenburg position. Approximately 13 mL of cerebrospinal fluid was collected using gravity. The specimen was collected and submitted to the laboratory for further evaluation. The needle was withdrawn,. Hemostasis was achieved and a sterile dressing placed. The patient tolerated the procedure well without any immediate complications. The patient was placed supine with head elevated and returned to the floor in stable condition. RAD/Fluoro Guided Lumbar Puncture IMPRESSION: Successful fluoroscopic-guided lumbar puncture. Electronically Signed: Anthony Berrios MD at 10:39 EST , Service support ,
--- NOTE | 2020-07-05 09:50 | CYSPIN_PTH ---
PATIENT: HITESH KRUEGER LOC: [facility] U#:[id number] AGE/SX: 39/F ROOM: RE07/05/[address]: Dr. Trey Tamez MD : 1985 BED: DIS: SPEC #: [id number] RECD: 07/05/20 10:46 STATUS: HUI REQ #: [id number] EDISON: 07/05/20 09:[address]: Trey Tamez DEPT: CYTOLOGY RECD BY: Agnes Guido ENTERED: 07/05/20 10:48 SP TYPE: CYSPIN FL OTHR DR: Dr. Susan Rollins MD Tissues: Cerebrospinal Fluid Procedures: Pap Stain (control) Special Stain Group II Cytospin Fluid HEADER OPERATION: Lumbar puncture PRE-OP DIAGNOSIS: Headaches TISSUE SUBMITTED: Cerebrospinal fluid for cytology DIAGNOSIS CYTOLOGY Cerebrospinal fluid for cytology (cytospin): Negative for malignant cells. Blood. AM:yung 07/06/2020 CYTOLOGY STUDY Slides are reviewed. CYTOLOGY GROSS Received is 5 ml of clear, tinged pink fluid labeled with the patient's name and and designated per the requisition as CSF. Submitted for cytology preparation. / yung 07/05/2020 TC:5 CPT: 68762
[2020-07-05 09:55] VITALS: BP 121/76; PULSE 99; RESP 16; O2SAT 99
[2020-07-05 10:05] LABS: Cytology, Body Fluid / CSF SEE PATHOLOGY REPORT
[2020-07-05 10:10] VITALS: BP 131/80; PULSE 95; RESP 16; O2SAT 99
[2020-07-05 10:25] VITALS: BP 125/74; PULSE 96; RESP 16; O2SAT 98
[2020-07-05 10:40] VITALS: BP 128/72; PULSE 96; RESP 14; O2SAT 94
[2020-07-05 10:56] VITALS: BP 114/59; PULSE 99; RESP 14; O2SAT 94
[2020-07-05 10:59] LABS: Glucose Spinal Fluid 53 mg/dL (40-75)
[2020-07-05 11:18] LABS: Appearance CSF (character) CLEAR (Clear); Auto B Fluid Analyzer BKGD Ct COUNTS W/IN LIMITS (W/IN LIMITS); Body Fluid QC Type(s) BF1Q; CSF Color COLORLESS (Colorless); RBC Count, Spinal Fluid 1 /mm-3 (None seen); Tested Tube # 2; White Count, CSF 5 /mm-3 (0 - 5)
[2020-07-05 11:40] LABS: Lymphocytes,CSF 100 % (40 - 80)
[2020-07-06 12:34] LABS: Pathologist Review Reviewed
== END ==
LOC: RAD 08:39
PROVIDERS: PCP Internal Medicine; Referring Provider Ophthalmology; Visit Provider Ophthalmology
DX: H47.13 Papilledema associated with retinal disorder (principal)
CPT/HCPCS: 62328; 62270; 77003; 82945; 84157; 87070; 87205; 88108; 88313; 89050; 89051

== ENCOUNTER → 2020-08-03 | Outpatient (CLI) | payer BC, SELFPAY ==
[2020-07-15 09:28] VITALS: BMI 40.3
[2020-08-03 12:55] LABS: Amphetamine Urine VISTA POSITIVE (<1000 ng/mL); Barbiturate Urine VISTA NEGATIVE (< 200 ng/mL); Benzodiazepine Urine VISTA NEGATIVE (< 200 ng/mL); Cocaine Urine VISTA NEGATIVE (< 300 ng/mL); Ecstacy Urine VISTA NEGATIVE (< 500 ng/mL); Methadone Urine VISTA NEGATIVE (< 300 ng/mL); PCP Urine VISTA NEGATIVE (< 25 ng/mL); THC Urine VISTA NEGATIVE (< 50 ng/mL); Vista UDS pH Range 5
== END | disposition home or self-care (01) ==
LOC: LABSPEC 08:55
PROVIDERS: Nurse Practitioner Family; PCP Internal Medicine; Referring Provider Internal Medicine; Visit Provider Internal Medicine
DX: F90.9 Attention-deficit hyperactivity disorder, unspecified type (principal)
CPT/HCPCS: 80307

== ENCOUNTER 2020-10-07 20:48 | Emergency (ER) | payer BC, SELFPAY ==
[2020-09-29 08:04] VITALS: BMI 38.4
[2020-10-07 20:48] VITALS: BP 136/83; PULSE 86; RESP 16; TEMP 36.4; O2SAT 98; BMI 37.8
--- NOTE | 2020-10-07 21:07 | ED.VIS.LOWEX ---
HPI History of Present Illness Chief Complaint: Lower Extremity Injury Informant: patient Occured/Mechanism Comment: Rolled right ankle Onset/Context/Timing Current Severity: Moderate Maximum Severity: Moderate Narrative Narrative: Patient present secondary to right ankle pain. She states she was sitting on her stool in her leg slightly went to sleep. When she stood up she rolled her right ankle and felt a pop. She is had more difficulty putting weight on that ankle. She denies any other injury. She has not taken anything for pain. [facility] Medical History Anemia Anxiety and depression Bone fracture Bronchitis Chronic headaches Depression Lab test negative for COVID-19 virus Seasonal allergies Home Medications escitalopram oxalate 20 mg tablet 20 mg PO DAILY #90 tab 03/31/20 [Rx Last Taken Unknown] alprazolam 0.5 mg tablet 0.5 mg PO BID PRN #2 tab 06/30/20 [Rx Last Taken Unknown] nabumetone 500 mg tablet 500 mg PO BID PRN #30 tab 07/08/20 [Rx Last Taken Unknown] promethazine 25 mg tablet 12.5 - 25 mg PO BID PRN #20 tab 07/08/20 [Rx Last Taken Unknown] buspirone 5 mg tablet 5 mg PO BID #60 tab 09/14/20 [Rx Last Taken Unknown] cetirizine 10 mg tablet 10 mg PO DAILY #30 tab 09/14/20 [Rx Last Taken Unknown] sumatriptan succinate 50 mg tablet 50 mg PO .COMPLEX #9 tab 09/14/20 [Rx Last Taken Unknown] topiramate 100 mg tablet 100 mg PO BID #60 tablet 09/14/20 [Rx Last Taken Unknown] dextroamphetamine-amphetamine 30 mg tablet 30 mg PO BID 30 Days #60 tab 09/27/20 [Rx Last Taken Unknown] naproxen [Naprosyn] 500 mg PO BID PRN #20 tab 10/07/20 [Rx Last Taken Unknown] Allergy/AdvReac Type Severity Reaction Status Date / Time latex AdvReac Itching Verified 10/07/20 20:50 Family History Mother Hypertension Migraines Surgical History History of History of tonsillectomy spinal tap Social History Smoking Status: Light Smoker (<10/day) Tobacco: How many years used: 10 Electronic Cigarette Use: not used second hand exposure: No alcohol intake: former substance use type: does not use what type of physical activity do you participate in: none ROS ROS ED Constitutional Constitutional ED: Denies chills or fever(s) Eyes Eyes: Denies change in vision ENT ENT ED: Denies sore throat Cardiovascular Cardiovascular: Denies chest pain Respiratory/Chest Respiratory/Chest: Denies cough or dyspnea Gastrointestinal Gastrointestinal: Denies abdominal pain, diarrhea, nausea or vomiting Genitourinary Genitourinary ED: Denies dysuria Musculoskeletal Musculoskeletal: Reports arthralgias; Denies back pain Integumentary Denies rash Neurologic Neurologic: Denies headache(s) or weakness Psychiatric Psychiatric: Denies anxiety or depression Endocrine Endocrinology: Denies polydipsia or polyuria Allergic/Immunologic Allergic/Immunologic ED: Denies urticaria EXAM Physical Exam Const Vital Signs: 10/07/20 20:48 Temperature 97.6 F L Temperature Source Temporal Pulse Rate 86 Respiratory Rate 16 Blood Pressure 136/83 H Blood Pressure Mean 100 Pulse Ox 98 Oxygen Delivery Method Room Air Positive well nourished and well developed General Appearance ED: well developed HEENT Reports normocephalic and head/scalp atraumatic Eyes PERRL and EOMs intact bilaterally Neck supple Chest Wall inspection of chest normal and palpation of chest normal Resp normal respiratory effort and clear to auscultation bilaterally Cardio regular rate and regular rhythm GI normal to inspection, nondistended, normoactive bowel sounds Palpation: soft Extremity Extremity Narrative: Mild edema with tenderness location of the lateral malleolus of the right ankle. No tenderness of the foot itself. Strong distal pulses. No tenderness of the proximal fibula. Neuro oriented x3 and no sensory deficits noted Sensorium / Orientation: alert Psych mental status grossly normal Skin no rashes or lesions noted MDM MDM MDM Narrative Medical decision making narrative: Patient was given ice pack and naproxen. Right ankle x-rays are obtained. Per my interpretation no acute fracture noted. Patient was placed in an air stirrup splint. She declines crutches. Prescription for naproxen will be sent to the pharmacy for her. Discharge Plan Triage Chief Complaint: Lower Extremity Injury ED Provider: Loulou Rodriguez Dx/Rx/DC Orders Clinical Impression: Right ankle sprain Instructions: ED Ankle Sprain (Adult) Prescriptions: New naproxen [Naprosyn] 500 mg tablet 500 mg PO BID PRN (Reason: pain) Qty: 20 RF: 0 No Action escitalopram oxalate 20 mg tablet 20 mg PO DAILY Qty: 90 RF: 1 alprazolam 0.5 mg tablet 0.5 mg PO BID PRN (Reason: anxiety) Qty: 2 RF: 0 promethazine 25 mg tablet 12.5 - 25 mg PO BID PRN (Reason: nausea and vomiting) Qty: 20 RF: 1 nabumetone 500 mg tablet 500 mg PO BID PRN (Reason: migraine headache) Qty: 30 RF: 0 buspirone 5 mg tablet 5 mg PO BID Qty: 60 RF: 1 sumatriptan succinate 50 mg tablet 50 mg PO .COMPLEX Qty: 9 RF: 1 topiramate 100 mg tablet 100 mg PO BID Qty: 60 RF: 1 cetirizine [Zyrtec] 10 mg tablet 10 mg PO DAILY Qty: 30 RF: 1 dextroamphetamine-amphetamine 30 mg tablet 30 mg PO BID 30 Days Qty: 60 RF: 0 Primary Care Provider: Susan Rollins Referrals: Susan Rollins MD [Primary Care Provider] - 1 Week if not improving Disposition Disposition: Home, self care
--- NOTE | 2020-10-07 21:10 | RAD_ITS ---
STUDY: X-RAY - RIGHT ANKLE REASON FOR EXAM: Female, 34 years old. Ankle pain twist injury injury TECHNIQUE: 3 view(s) of the ankle. COMPARISON: None. FINDINGS: Normal visualized distal tibia and fibula. Normal medial and lateral malleoli. Normal tibiotalar articulation and ankle mortise. Normal visualized talus and calcaneus. The visualized subtalar, talonavicular, calcaneocuboid and tarsal articulations are normal. There is no demonstrated fracture. The soft tissue structures are unremarkable. RAD/Ankle min 3 Views IMPRESSION: Normal x-ray examination of the ankle. Electronically Signed: Mic Hahn MD at 22:15 EDT , Service support ,
[2020-10-07] MEDS: Naproxen 500 MG Tablet PO (21:26)
== END 2020-10-07 21:47 | disposition home or self-care (01) ==
PROVIDERS: Emergency Provider Emergency Medicine; PCP Internal Medicine
DX: S93.401A Sprain of unspecified ligament of right ankle, initial encounter (principal); F17.200 Nicotine dependence, unspecified, uncomplicated; F41.9 Anxiety disorder, unspecified; F32.9 Major depressive disorder, single episode, unspecified; Z79.899 Other long term (current) drug therapy; X50.1XXA Overexertion from prolonged static or awkward postures, initial encounter
CPT/HCPCS: 73610; 99283

== ENCOUNTER 2020-11-30 07:37 | Emergency (ER) | payer BC, SELFPAY ==
[2020-11-24 09:10] VITALS: BMI 37.8
[2020-11-30 07:38] VITALS: BP 131/80; PULSE 92; RESP 8; TEMP 36; O2SAT 99; BMI 35.4
[2020-11-30 07:47] VITALS: RESP 16
--- NOTE | 2020-11-30 07:47 | EDS_ITS ---
HPI History of Present Illness Chief Complaint: Laceration Detail of Chief Complaint: Laceration to nose with utility knife 4 hours ago Informant: patient Narrative Narrative: Patient states that she got off work early and was cutting wallpaper with a utility knife when she accidentally lacerated her nose. Patient attempted to superglue it but states that it did not work out so well and it was seeping so she comes in for evaluation. Patient is up-to-date on tetanus. She denies other injuries. [facility] Medical History (Updated 11/30/20 @ 08:[address] Noah Alves, ) Anemia Anxiety and depression Bone fracture Bronchitis Chronic headaches Depression Lab test negative for COVID-19 virus Right ankle pain Seasonal allergies Home Medications escitalopram oxalate 20 mg tablet 20 mg PO DAILY #90 tab 03/31/20 [Rx Last Taken Unknown] cetirizine 10 mg tablet 10 mg PO DAILY #30 tab 10/28/20 [Rx Last Taken Unknown] sumatriptan succinate 100 mg tablet See Rx Instructions PO .COMPLEX #9 tab 10/28/20 [Rx Last Taken Unknown] topiramate 100 mg tablet 100 mg PO BID #60 tablet 10/28/20 [Rx Last Taken Unknown] difluprednate 0.05 % eye drops 1 drp OPHTHALMIC (EYE) TID 11/24/20 [History Last Taken Unknown] prednisone 10 mg tablet 10 mg PO TID #90 tab 11/24/20 [Rx Last Taken Unknown] tramadol 50 mg tablet 50 mg PO Q12H PRN #14 tab 11/24/20 [Rx Last Taken Unknown] dextroamphetamine-amphetamine 30 mg tablet 30 mg PO BID 30 Days #60 tab 11/26/20 [Rx Last Taken Unknown] buspirone 2.5 mg PO BID 11/30/20 [History Last Taken Unknown] Allergy/AdvReac Type Severity Reaction Status Date / Time latex AdvReac Itching Verified 11/30/20 07:38 Family History Mother Hypertension Migraines Surgical History History of History of tonsillectomy spinal tap Social History Smoking Status: Light Smoker (<10/day) Tobacco: How many years used: 10 Electronic Cigarette Use: not used second hand exposure: No alcohol intake: former substance use type: does not use what type of physical activity do you participate in: none ROS ROS ED Constitutional Constitutional ED: Reports systems reviewed and no addt'l complaints, except as documented; Denies body ache(s), change in weight or chills Eyes Eyes: Denies acute decrease in peripheral vision, change in vision, double vision or loss of vision ENT ENT ED: Reports none and other Details: Nasal laceration ; Denies ear pain, lip swelling, loss taste/smell, neck pain, otalgia or sore throat Cardiovascular Cardiovascular: Reports none; Denies abdominal pain, chest pain with activity, leg edema, lightheadedness, palpitations, rapid heart rate or syncope Respiratory/Chest Respiratory/Chest: Reports none; Denies change in mental status, dry cough, dyspnea, hemoptysis, shortness of breath at rest or shortness of breath with exertion Gastrointestinal Gastrointestinal: Reports none; Denies abdominal pain, change in stool character, diarrhea, hematemesis, hematochezia, melena, rectal bleeding or vomiting Genitourinary Genitourinary ED: Reports none; Denies abdominal discomfort, anuria, dysuria, genital pain or polyuria Musculoskeletal Musculoskeletal: Reports none; Denies arthralgias, back pain, difficulty walking, extremity pain, muscle weakness or myalgias Integumentary Reports none; Denies abscess or rash Neurologic Neurologic: Reports none; Denies abnormal gait, confusion, focal weakness, frequent falls, headache(s), loss of vision, numbness, paresthesias, radicular pain, vertigo or weakness Psychiatric Psychiatric: Reports systems reviewed and no addt'l complaints, except as documented and none; Denies behavioral changes, confusion, difficulty concentrating, hallucinations, suicidal ideation, tactile hallucinations or visual hallucinations Endocrine Endocrinology: Denies none, cold intolerance, excessive sweating, fatigue or heat intolerance Hematologic/Lymphatic Hematologic/Lymphatic: Reports none; Denies anemia, easy bleeding or easy bruising Allergic/Immunologic Allergic/Immunologic ED: Denies as per HPI, none, lip swelling, mouth swelling, throat swelling, tongue swelling or hives EXAM Physical Exam Const Vital Signs: 11/30/20 07:38 11/30/20 07:47 Temperature 96.8 F L Temperature Source Temporal Pulse Rate 92 Respiratory Rate 8 L 16 Blood Pressure 131/80 H Blood Pressure Mean 97 Pulse Ox 99 Oxygen Delivery Method Room Air Positive well nourished and well developed General Appearance ED: well developed and NAD HEENT Reports TM's clear and moist mucous membranes HEENT Narrative: Patient has a 2.5 cm laceration from the tip of the nose extending down the center portion towards the upper lip that appears to be somewhat superficial. No active bleeding at this time. normocephalic and trauma; Negative for tenderness Tympanic Membrane ED: Yes TM's clear Eyes PERRL and EOMs intact bilaterally General Eye ED: Negative for pale conjunctiva or scleral icterus Neck no lymphadenopathy, supple and no JVD General: Negative for tenderness Chest Wall inspection of chest normal and palpation of chest normal Chest: Negative for tenderness Resp normal respiratory effort and clear to auscultation bilaterally Effort and Inspection: Negative for respiratory distress or pain with movement Auscultation: Negative for rhonchi, wheezes or diminished lung sounds Cardio regular rate, regular rhythm, S1 normal heart sound, S2 normal heart sound and no murmurs Peripheral Pulses: pulses 2+ throughout GI normal to inspection, nondistended, normoactive bowel sounds, soft to palpation, non-tender, non-distended and no masses Back/Spine no CVA tenderness and no thoracic nor lumbar tenderness Extremity normal to inspection General Extremety ED: Negative for edema General Extremity: Negative for edema Neuro oriented x3, CN's II-XII intact bilaterally, no sensory deficits noted and gait normal Sensorium / Orientation: awake, alert, oriented to person, oriented to place and oriented to time Motor Exam: strength 5/5 throughout and strength abnormal Psych mental status grossly normal Skin no rashes or lesions noted and no wounds PROC Procedures Lacerations Nasal laceration: Length: 0.98 in Depth: Sub Q Shape: Linear Prep: Sterile Conditions Laceration repair: Irrigated and Local Irrigated (ml): 50 Number of Sutures/Mohsen: 4 Suture Information: Ethilon Comment: Had let solution applied to the wound. Wound cleansed with Shur- Clens and irrigated with copious saline. Using 6-0 nylon a total of 4 single erupted sutures placed with good wound edge approximation. Patient tolerated procedure well. MDM MDM MDM Narrative Medical decision making narrative: On inspection of the wound I do not believe the wound involves the nasal cartilage. Patient advised to have sutures removed in 5 days. Patient to return if increasing pain, redness, swelling, or condition should worsen anyway. Discharge Plan Triage Chief Complaint: Laceration ED Provider: Noah Alves Dx/Rx/DC Orders Clinical Impression: Laceration of nose Instructions: ED Laceration: All Closures Prescriptions: No Action escitalopram oxalate 20 mg tablet 20 mg PO DAILY Qty: 90 RF: 1 topiramate 100 mg tablet 100 mg PO BID Qty: 60 RF: 2 sumatriptan succinate 100 mg tablet See Rx Instructions PO .COMPLEX Qty: 9 RF: 2 cetirizine [Zyrtec] 10 mg tablet 10 mg PO DAILY Qty: 30 RF: 2 Durezol 0.05 % drops 1 drp ophthalmic (eye) TID RF: 0 tramadol 50 mg tablet 50 mg PO Q12H PRN (Reason: pain) Qty: 14 RF: 0 buspirone 5 mg tablet 2.5 mg PO BID RF: 0 prednisone 10 mg tablet 10 mg PO TID Qty: 90 RF: 0 dextroamphetamine-amphetamine 30 mg tablet 30 mg PO BID 30 Days Qty: 60 RF: 0 Primary Care Provider: Susan Rollins Referrals: Susan Rollins MD [Primary Care Provider] - 5 Days for suture removal Disposition Disposition: Home, Self Care
[2020-11-30] MEDS: Lidocaine/Epi/Tetracaine 50 ML 1 APPLIC TOPICAL (07:58)
[2020-11-30 09:00] VITALS: BP 118/62; PULSE 74; RESP 15; O2SAT 98
== END 2020-11-30 09:07 | disposition home or self-care (01) ==
PROVIDERS: Emergency Provider Emergency Medicine; PCP Internal Medicine
DX: S01.21XA Laceration without foreign body of nose, initial encounter (principal); W26.0XXA Contact with knife, initial encounter; Y93.89 Activity, other specified; Y92.9 Unspecified place or not applicable; Y99.9 Unspecified external cause status; F32.9 Major depressive disorder, single episode, unspecified; F41.9 Anxiety disorder, unspecified; F17.210 Nicotine dependence, cigarettes, uncomplicated; Z79.52 Long term (current) use of systemic steroids; Z79.899 Other long term (current) drug therapy
CPT/HCPCS: 12011; 99283

== ENCOUNTER → 2020-12-30 09:27 | Outpatient (CLI) | payer BC, SELFPAY ==
[2020-12-30 11:29] LABS: Amphetamine Urine VISTA POSITIVE (<1000 ng/mL); Barbiturate Urine VISTA NEGATIVE (< 200 ng/mL); Benzodiazepine Urine VISTA NEGATIVE (< 200 ng/mL); Cocaine Urine VISTA NEGATIVE (< 300 ng/mL); Ecstacy Urine VISTA POSITIVE (< 500 ng/mL); Methadone Urine VISTA NEGATIVE (< 300 ng/mL); PCP Urine VISTA NEGATIVE (< 25 ng/mL); THC Urine VISTA NEGATIVE (< 50 ng/mL); Vista UDS pH Range 5
[2020-12-31 21:18] LABS: ANTINUCLEAR ANTIBODIES DIRECT Negative (Negative)
== END ==
LOC: BIMLAB 09:28
PROVIDERS: Nurse Practitioner Family; PCP Internal Medicine; Referring Provider Ophthalmology; Visit Provider Ophthalmology
DX: F90.9 Attention-deficit hyperactivity disorder, unspecified type (principal); H44.111 Panuveitis, right eye; R51.9 Headache, unspecified
CPT/HCPCS: 36415; 80307; 86038

== ENCOUNTER → 2021-01-20 | Outpatient (CLI) | payer BC, SELFPAY | END | disposition home or self-care (01) | LOC: LABSPEC 11:34 | PROVIDERS: PCP Internal Medicine; Referring Provider Nurse Practitioner Family; Visit Provider Nurse Practitioner Family | DX: R09.81 Nasal congestion (principal) | CPT/HCPCS: 87635; U0005; U0003 ==

== ENCOUNTER → 2021-02-03 | Outpatient (CLI) | payer BC, SELFPAY | END | disposition home or self-care (01) | LOC: LABSPEC 09:58 | PROVIDERS: PCP Internal Medicine; Visit Provider Physician Assistant | DX: U07.1 COVID-19 (principal) | CPT/HCPCS: 87635; U0005; U0003 ==

== ENCOUNTER 2021-02-10 12:06 | Outpatient (CLI) | payer BC, SELFPAY ==
[2021-02-10] MEDS: 0.9% Saline Lock 10 ML Syringe IV (12:26)
[2021-02-10 12:29] VITALS: BP 130/70; PULSE 64; RESP 16; TEMP 37; O2SAT 98; BMI 38.4
[2021-02-10 13:12] VITALS: BP 106/53; PULSE 85; RESP 16; TEMP 36.7; O2SAT 100
[2021-02-10 14:09] VITALS: BP 114/68; PULSE 77; RESP 16; TEMP 36.8; O2SAT 100
== END 2021-02-10 14:10 | disposition home or self-care (01) ==
LOC: MS3OUT 12:07 → MS3 12:08
PROVIDERS: PCP Internal Medicine; Referring Provider Nurse Practitioner Adult Health; Visit Provider Nurse Practitioner Adult Health
DX: Z23 Encounter for immunization (principal); U07.1 COVID-19
CPT/HCPCS: J7050; M0243; A4216; Q0244

== ENCOUNTER → 2021-03-29 09:26 | Outpatient (CLI) | payer BC, SELFPAY ==
[2021-03-29 13:44] LABS: Amphetamine Urine VISTA POSITIVE (<1000 ng/mL); Barbiturate Urine VISTA NEGATIVE (< 200 ng/mL); Benzodiazepine Urine VISTA NEGATIVE (< 200 ng/mL); Cocaine Urine VISTA NEGATIVE (< 300 ng/mL); Ecstacy Urine VISTA NEGATIVE (< 500 ng/mL); Methadone Urine VISTA NEGATIVE (< 300 ng/mL); PCP Urine VISTA NEGATIVE (< 25 ng/mL); THC Urine VISTA NEGATIVE (< 50 ng/mL); Vista UDS pH Range 7
== END ==
PROVIDERS: PCP Internal Medicine; Referring Provider Nurse Practitioner Family; Visit Provider Nurse Practitioner Family
DX: F90.9 Attention-deficit hyperactivity disorder, unspecified type (principal)
CPT/HCPCS: 80307

== ENCOUNTER 2021-06-28 09:54 | Outpatient (CLI) | payer BC, SELFPAY ==
[2021-06-28 12:47] LABS: Amphetamine Urine VISTA POSITIVE (<1000 ng/mL); Barbiturate Urine VISTA NEGATIVE (< 200 ng/mL); Benzodiazepine Urine VISTA NEGATIVE (< 200 ng/mL); Cocaine Urine VISTA NEGATIVE (< 300 ng/mL); Ecstacy Urine VISTA NEGATIVE (< 500 ng/mL); Methadone Urine VISTA NEGATIVE (< 300 ng/mL); PCP Urine VISTA NEGATIVE (< 25 ng/mL); THC Urine VISTA NEGATIVE (< 50 ng/mL); Vista UDS pH Range 5
== END 2021-06-28 23:59 | disposition home or self-care (01) ==
LOC: BIMLAB 09:55
PROVIDERS: PCP Internal Medicine; Referring Provider Nurse Practitioner Family; Visit Provider Nurse Practitioner Family
DX: F90.9 Attention-deficit hyperactivity disorder, unspecified type (principal)
CPT/HCPCS: 80307

== ENCOUNTER → 2021-09-20 | Outpatient (CLI) | payer BC, SELFPAY ==
[2021-09-20 12:07] LABS: Absolute Lymphocyte Count 2.98 X10^3/uL (0.83-4.51); Absolute Neutrophil Count 9.8 X10^3/uL (2.0-7.7); Basophil# 0.08 X10^3/uL; Basophil% 0.6 % (0-1); Eosinophil# 0.16 X10^3/uL; Eosinophils% 1.1 % (0-5); Hematocrit 40.5 % (37-47); Hemoglobin 12.9 g/dL (12.0-15.0); Lymphocyte # 2.98 X10^3/ul (0.83-4.51); Lymphocyte % 21.4 % (19-41); Mean Corp Hgb Conc 31.9 g/dL (32-36); Mean Corpuscular Hgb 28.2 pg (27.0-32.0); Mean Corpuscular Volume 88.4 fL (81-99); Mean Platelet Vol. 10.3 fl (6.2-12.0); Monocyte# 0.88 X10^3/uL; Monocyte% 6.3 % (0-10); NRBC Flagged by Analyzer 0 % (0-5); Neutrophil # 9.75 X10^3/uL (2.7-7.7); Neutrophil % 70.1 % (47-70); Platelet Count 438 K/mm3 (150-450); RBC Distribution Width CV 14.8 % (11.6-14.6); RBC Distribution Width SD 47.9 fl (35.1-43.9); Red Blood Count 4.58 M/mm3 (4.2-5.4); White Blood Count 13.9 K/mm3 (4.4-11.0)
[2021-09-20 12:26] LABS: Vitamin D,25 Hydroxy 19.3 ng/mL
[2021-09-20 13:10] LABS: ALB/GLOB Ratio 0.9 RATIO (0.9-2.4); AST(SGOT) 10 U/L (15-37); Alanine Aminotransfer ALT/SGPT 18 U/L (13-56); Albumin, Serum 3.6 g/dL (3.2-5.0); Alkaline Phosphatase 111 U/L (45-117); Anion Gap 9 (5-15); BUN 10 mg/dL (7-18); BUN/Creat Ratio 9.3 RATIO (10-20); Calcium,Total 8.8 mg/dL (8.5-10.1); Chloride 108 mmol/L (98-107); Cholesterol 185 mg/dL (200); Creatinine, Serum 1.08 mg/dL (0.55-1.02); EST Glomerular Filtration Rate 62 mL/min (>60); Est Glom Filt Rate - Afr Amer 75 mL/min (>60); Globulin 4.2 g/dL (2.2-4.2); Glucose 58 mg/dL (74-106); High Density Lipoprotein 34 mg/dL; Potassium 3.9 mmol/L (3.5-5.1); Protein, Total 7.8 g/dL (6.4-8.2); Sodium Level 138 mmol/L (136-145); Thyroid Stim Hormone (TSH) 1.47 uIU/mL (0.358-3.74); Triglycerides 140 mg/dL; Very Low Density Lipoprotein 28 mg/dL (5-40)
== END | disposition home or self-care (01) ==
LOC: BIMLAB 08:44
PROVIDERS: PCP Internal Medicine; Referring Provider Nurse Practitioner Family; Visit Provider Nurse Practitioner Family
DX: Z00.00 Encounter for general adult medical examination without abnormal findings (principal); Z72.0 Tobacco use; F90.9 Attention-deficit hyperactivity disorder, unspecified type
CPT/HCPCS: 36415; 80053; 80061; 82306; 84443; 85025

== ENCOUNTER → 2021-09-27 | Outpatient (CLI) | payer BC, SELFPAY | END | disposition home or self-care (01) | LOC: LABSPEC 09:46 | PROVIDERS: PCP Internal Medicine; Referring Provider Nurse Practitioner Family; Visit Provider Nurse Practitioner Family | DX: R05.9 Cough, unspecified (principal) | CPT/HCPCS: 87635; U0003; U0005 ==

== ENCOUNTER → 2021-12-13 | Outpatient (CLI) | payer BC, SELFPAY ==
[2021-12-13 12:57] LABS: Amphetamine Urine VISTA POSITIVE (<1000 ng/mL); Barbiturate Urine VISTA NEGATIVE (< 200 ng/mL); Benzodiazepine Urine VISTA NEGATIVE (< 200 ng/mL); Cocaine Urine VISTA NEGATIVE (< 300 ng/mL); Ecstacy Urine VISTA NEGATIVE (< 500 ng/mL); Methadone Urine VISTA NEGATIVE (< 300 ng/mL); PCP Urine VISTA NEGATIVE (< 25 ng/mL); THC Urine VISTA NEGATIVE (< 50 ng/mL); Vista UDS pH Range 5
== END | disposition home or self-care (01) ==
LOC: BIMLAB 08:50 → LABSPEC 08:53
PROVIDERS: PCP Internal Medicine; Visit Provider Nurse Practitioner Family
DX: F90.9 Attention-deficit hyperactivity disorder, unspecified type (principal)
CPT/HCPCS: 80307

== ENCOUNTER → 2022-05-17 | Outpatient (CLI) | payer BC, SELFPAY ==
[2022-05-17 13:10] LABS: Amphetamine Urine VISTA POSITIVE (<1000 ng/mL); Barbiturate Urine VISTA NEGATIVE (< 200 ng/mL); Benzodiazepine Urine VISTA NEGATIVE (< 200 ng/mL); Cocaine Urine VISTA NEGATIVE (< 300 ng/mL); Ecstacy Urine VISTA POSITIVE (< 500 ng/mL); Methadone Urine VISTA NEGATIVE (< 300 ng/mL); PCP Urine VISTA NEGATIVE (< 25 ng/mL); THC Urine VISTA NEGATIVE (< 50 ng/mL); Vista UDS pH Range 5
== END | disposition home or self-care (01) ==
LOC: LABSPEC 11:12
PROVIDERS: PCP Nurse Practitioner Family; Referring Provider Nurse Practitioner Family; Visit Provider Nurse Practitioner Family
DX: F90.9 Attention-deficit hyperactivity disorder, unspecified type (principal)
CPT/HCPCS: 80307

== ENCOUNTER → 2022-08-15 | Outpatient (CLI) | payer BC, SELFPAY ==
[2022-08-15 12:59] LABS: Amphetamine Urine VISTA POSITIVE (<1000 ng/mL); Barbiturate Urine VISTA NEGATIVE (< 200 ng/mL); Benzodiazepine Urine VISTA NEGATIVE (< 200 ng/mL); Cocaine Urine VISTA NEGATIVE (< 300 ng/mL); Ecstacy Urine VISTA NEGATIVE (< 500 ng/mL); Methadone Urine VISTA NEGATIVE (< 300 ng/mL); PCP Urine VISTA NEGATIVE (< 25 ng/mL); THC Urine VISTA NEGATIVE (< 50 ng/mL); Vista UDS pH Range 5
== END | disposition home or self-care (01) ==
LOC: LABSPEC 09:40
PROVIDERS: PCP Nurse Practitioner Family; Referring Provider Nurse Practitioner Family; Visit Provider Nurse Practitioner Family
DX: F90.9 Attention-deficit hyperactivity disorder, unspecified type (principal)
CPT/HCPCS: 80307

== ENCOUNTER → 2022-11-10 | Outpatient (CLI) | payer BC, SELFPAY ==
[2022-11-10 12:29] LABS: Absolute Lymphocyte Count 2.21 X10^3/uL (0.83-4.51); Absolute Neutrophil Count 9.5 X10^3/uL (2.0-7.7); Basophil# 0.06 X10^3/uL; Basophil% 0.5 % (0-1); Eosinophil# 0.15 X10^3/uL; Eosinophils% 1.2 % (0-5); Hematocrit 39.5 % (37-47); Hemoglobin 12.5 g/dL (12.0-15.0); Lymphocyte # 2.21 X10^3/ul (0.83-4.51); Lymphocyte % 17.3 % (19-41); Mean Corp Hgb Conc 31.6 g/dL (32-36); Mean Corpuscular Hgb 27.2 pg (27.0-32.0); Mean Corpuscular Volume 86.1 fL (81-99); Mean Platelet Vol. 10.2 fl (6.2-12.0); Monocyte# 0.76 X10^3/uL; NRBC Flagged by Analyzer 0 % (0-5); Neutrophil # 9.52 X10^3/uL (2.7-7.7); Neutrophil % 74.7 % (47-70); Platelet Count 495 K/mm3 (150-450); RBC Distribution Width CV 15.5 % (11.6-14.6); RBC Distribution Width SD 48.9 fl (35.1-43.9); Red Blood Count 4.59 M/mm3 (4.2-5.4); White Blood Count 12.7 K/mm3 (4.4-11.0)
[2022-11-10 13:14] LABS: ALB/GLOB Ratio 0.9 RATIO (0.9-2.4); AST(SGOT) 15 U/L (15-37); Alanine Aminotransfer ALT/SGPT 21 U/L (13-56); Albumin, Serum 3.6 g/dL (3.2-5.0); Alkaline Phosphatase 106 U/L (45-117); Anion Gap 7 (5-15); BUN 10 mg/dL (7-18); BUN/Creat Ratio 9.3 RATIO (10-20); Calcium,Total 9.2 mg/dL (8.5-10.1); Chloride 105 mmol/L (98-107); Cholesterol 196 mg/dL (200); Creatinine, Serum 1.08 mg/dL (0.55-1.02); EST Glomerular Filtration Rate 61 mL/min (>60); Est Glom Filt Rate - Afr Amer 74 mL/min (>60); Globulin 4.1 g/dL (2.2-4.2); Glucose 75 mg/dL (74-106); High Density Lipoprotein 25 mg/dL; Potassium 3.7 mmol/L (3.5-5.1); Protein, Total 7.7 g/dL (6.4-8.2); Sodium Level 137 mmol/L (136-145); Thyroid Stim Hormone (TSH) 1.09 uIU/mL (0.358-3.74); Triglycerides 142 mg/dL; Very Low Density Lipoprotein 28 mg/dL (5-40)
[2022-11-10 15:05] LABS: Hemoglobin A1c 4.8 % (3.8-5.6)
== END | disposition home or self-care (01) ==
PROVIDERS: PCP Nurse Practitioner Family; Referring Provider Nurse Practitioner Family; Visit Provider Nurse Practitioner Family
DX: F41.9 Anxiety disorder, unspecified (principal); F32.9 Major depressive disorder, single episode, unspecified; F90.9 Attention-deficit hyperactivity disorder, unspecified type; R73.09 Other abnormal glucose
CPT/HCPCS: 36415; 80053; 80061; 83036; 84443; 85025

== ENCOUNTER → 2023-12-26 | Outpatient (CLI) | payer BC, SELFPAY ==
[2023-12-26 12:25] LABS: Absolute Lymphocyte Count 3.16 X10^3/uL (0.83-4.51); Absolute Neutrophil Count 5.3 X10^3/uL (2.0-7.7); Basophil# 0.05 X10^3/uL; Basophil% 0.5 % (0-1); Eosinophil# 0.13 X10^3/uL; Eosinophils% 1.4 % (0-5); Hematocrit 37.5 % (37-47); Hemoglobin 11.8 g/dL (12.0-15.0); Lymphocyte # 3.16 X10^3/ul (0.83-4.51); Lymphocyte % 34.1 % (19-41); Mean Corp Hgb Conc 31.5 g/dL (32-36); Mean Corpuscular Hgb 27.6 pg (27.0-32.0); Mean Corpuscular Volume 87.6 fL (81-99); Monocyte# 0.58 X10^3/uL; Monocyte% 6.3 % (0-10); NRBC Flagged by Analyzer 0 % (0-5); Neutrophil # 5.33 X10^3/uL (2.7-7.7); Neutrophil % 57.5 % (47-70); Platelet Count 456 K/mm3 (150-450); RBC Distribution Width CV 14.1 % (11.6-14.6); RBC Distribution Width SD 45.2 fl (35.1-43.9); Red Blood Count 4.28 M/mm3 (4.2-5.4); White Blood Count 9.3 K/mm3 (4.4-11.0)
[2023-12-26 12:50] LABS: Amphetamine Urine VISTA POSITIVE (<1000 ng/mL); Barbiturate Urine VISTA NEGATIVE (< 200 ng/mL); Benzodiazepine Urine VISTA NEGATIVE (< 200 ng/mL); Cocaine Urine VISTA NEGATIVE (< 300 ng/mL); Ecstacy Urine VISTA POSITIVE (< 500 ng/mL); Methadone Urine VISTA NEGATIVE (< 300 ng/mL); PCP Urine VISTA NEGATIVE (< 25 ng/mL); THC Urine VISTA NEGATIVE (< 50 ng/mL); Vista UDS pH Range 6
[2023-12-26 12:55] LABS: ALB/GLOB Ratio 0.9 RATIO (0.9-2.4); AST(SGOT) 14 U/L (15-37); Alanine Aminotransfer ALT/SGPT 18 U/L (13-56); Albumin, Serum 3.5 g/dL (3.2-5.0); Alkaline Phosphatase 86 U/L (45-117); Anion Gap 7 (5-15); BUN 9 mg/dL (7-18); BUN/Creat Ratio 9.2 RATIO (10-20); Calcium,Total 8.7 mg/dL (8.5-10.1); Chloride 105 mmol/L (98-107); Cholesterol 149 mg/dL (200); Creatinine, Serum 0.98 mg/dL (0.55-1.02); EST Glomerular Filtration Rate 68 mL/min (>60); Est Glom Filt Rate - Afr Amer 82 mL/min (>60); Globulin 4.1 g/dL (2.2-4.2); Glucose 68 mg/dL (74-106); High Density Lipoprotein 24 mg/dL; Potassium 3.8 mmol/L (3.5-5.1); Protein, Total 7.6 g/dL (6.4-8.2); Sodium Level 137 mmol/L (136-145); Triglycerides 134 mg/dL; Very Low Density Lipoprotein 27 mg/dL (5-40)
== END | disposition home or self-care (01) ==
LOC: VSLAB 09:06
PROVIDERS: PCP Nurse Practitioner Family; Visit Provider Nurse Practitioner Family
DX: E88.810 Metabolic syndrome (principal); F90.9 Attention-deficit hyperactivity disorder, unspecified type
CPT/HCPCS: 36415; 80053; 80061; 80307; 84443; 85025

== ENCOUNTER → 2024-01-23 | Outpatient (CLI) | payer BC, SELFPAY | END | disposition home or self-care (01) | PROVIDERS: PCP Nurse Practitioner Family; Visit Provider Nurse Practitioner Family | DX: R82.998 Other abnormal findings in urine (principal) | CPT/HCPCS: 36415 ==

== ENCOUNTER → 2025-01-02 | Outpatient (CLI) | payer BC, SELFPAY ==
--- NOTE | 2025-01-02 08:30 | RAD_ITS ---
PROCEDURE: SHOULDER MIN 2 VIEWS 01/02/2025 REASON FOR EXAM: PAIN IN LEFT SHOULDER TECHNIQUE: SHOULDER MIN 2 VIEWS Laterality: Left COMPARISON: Left shoulder study of 06/02/2020. RAD/Shoulder min 2 Views IMPRESSION: At least mild left acromioclavicular joint degenerative changes are seen. Mild inferior acromial spurring is noted. The left glenohumeral joint demonstrates minimal degenerative changes, without apparent joint narrowing. No acute fracture or dislocation is seen. Reading Location: [place] [id number]
--- OUTSIDE RECORDS SUMMARY | 2025-01-02 08:45 | XMS RPT_ITS | CCD ---
Author Organization [facility] [employer] Care Team Providers Care Wearing Apparel Presser Name Role Phone DEVAUGHN JARVIS JR. Attending Unavailable DEVAUGHN JARVIS JR. Primary Care Unavailable DEVAUGHN JARVIS JR. Attending Unavailable DEVAUGHN JARVIS JR. Primary Care Unavailable Dr. Susan Rollins Primary Care Provider [phone] Dr. Susan Rollins Referring Provider [phone] [place] CYLINDER MACHINE OPERATOR, CYLINDER MACHINE OPERATOR-C Kelsey Attending Provider Tiwari CYLINDER MACHINE OPERATOR, CYLINDER MACHINE OPERATOR-C Reginaldo Attending Provider [phone] LORI Harden Attending Provider Unavailab Juaquin Mazariegos (Historic) Primary Care Prov ider Susan Rolilns MD Primary Care Provider [phone] Dr. Susan Rollins Referring Provider [phone] Dr. Shadi Meek Attending Provider [phone] Tiwari CYLINDER MACHINE OPERATOR, CYLINDER MACHINE OPERATOR-C Reginaldo Primary Care Provider Tiwari CYLINDER MACHINE OPERATOR, CYLINDER MACHINE OPERATOR-C Reginaldo Attending Provider [phone] Tiwari CYLINDER MACHINE OPERATOR, CYLINDER MACHINE OPERATOR-C Reginaldo Referring Provider [phone] Tiwari CYLINDER MACHINE OPERATOR, CYLINDER MACHINE OPERATOR-C Reginaldo Primary Care Provider Tiwari CYLINDER MACHINE OPERATOR, CYLINDER MACHINE OPERATOR-C Reginaldo Attending Provider [phone] Dr. Susan Rollins Referring Provider [phone] Tiwari CYLINDER MACHINE OPERATOR, CYLINDER MACHINE OPERATOR-C Reginaldo Referring Provider [phone] Dr. Shadi Meek Attending Provider [phone] Susan Rollins MD Primary Care Provider [phone] TIZZANO, MALVIN P Attending Unavailable OLEGHE, EFEWONGBE B Primary Care Unavailable TIZZANO, MALVIN P Referring Unavailable TIZZANO, MALVIN P Attending Unavailable OLEGHE, EFEWONGBE B Primary Care Unavailable TIZZANO, MALVIN P Referring Unavailable OLEGHE, EFEWONGBE B Primary Care Unavailable TIZZANO, MALVIN P Attending Unavailable OLEGHE, EFEWONGBE B Primary Care Unavailable Tiwari CYLINDER MACHINE OPERATOR-C, Reginaldo Primary Care Provider Tiwari CYLINDER MACHINE OPERATOR-C, Reginaldo Referring Provider Randolph Mayo Attending Provider Alberto MILLER, Dr. [place] Attending Provider Rahul Conley Attending Provider Randolph Mayo Attending Unavailable Tiwari VSC, Reginaldo Referring Unavailable Tiwari VSC, Reginaldo Primary Care Unavailable Cristofer Dominguez Attending Unavailable Tiwari VSC, Reginaldo Primary Care Unavailable Rahul Conley Attending Unavailable Tiwari VSC, Reginaldo Referring Unavailable Tiwari VSC, Reginaldo Primary Care Unavailable Tiwari VSC, Reginaldo Primary Care Unavailable Randolph Mayo Attending Unavailable Tiwari VSC, Reginaldo Referring Unavailable Tiwari VSC, Reginaldo Primary Care Unavailable Tiwari VSC, Reginaldo Attending Unavailable Tiwari VSC, Reginaldo Primary Care Unavailable Tiwari VSC, Reginaldo Attending Unavailable Tiwari VSC, Reginaldo Primary Care Unavailable Rahul Conley Attending Unavailable Tiwari VSC, Reginaldo Referring Unavailable Allergies Allergy Classification Reported Allergen(s) Allergy Type Date of Onset Reaction(s) Facility (15 sources) Latex; Translations: [LATEX] Propensity to adverse reactions 2 Rash [facility] Work Phone: (9 sources) Adhesive Tape; Translations: [ADHESIVE TAPE (ROSINS)] Propensity to adverse reactions 9 Rash, Swelling, Itching [facility] Work Phone: (9 sources) Propranolol; Translations: [PROPRANOLOL] Drug Allergy 1 Vomiting [facility] (1 source) Latex Drug allergy (disorder) 5 [facility] Repository Medications Current Medications Medication Drug Class(es) Dates Sig (Normalized) Sig (Original) Albuterol Sulfate (6 sources) beta2-Adrenergic Agonist Start: 02-18-2021 take 1 puff(s) by inhalation every six hours Albuterol Sulfate (Proair Hfa) 90 mcg/actuation HFA aerosol inhaler Active 1 - 2 PUFF INHALATION EVERY 6 HOURS 8.5 February 18, 2021 4:28pm Start: 02-18-2021 End: 08-15-2022 Albuterol Sulfate (Proair Hf a) 90 mcg/actuation HFA aerosol inhaler Discontinued 1 - 2 NMA INHALATION EVERY 6 HOURS as needed for shortness of breath or wheezing 8.5 1 February 18, 2021 12:00am August 15, 2022 9:01am Start: 02-18-2021 End: 08-15-2022 take 1 puff(s) by inhalation every six hours Albuterol Sulfate (Proair Hfa) 90 mcg/actuation HFA aerosol inhaler Discontinued 1 - 2 PUFF INHALATION EVERY 6 HOURS 8.5 February 18, 2021 12:00am August 15, 2022 9:01am difluprednate 0.5 mg/ml ophthalmic suspension (8 sources) Start: 11-10-2020 DUREZOL 0.05 % 11/10/2020 Active Semaglutide (Weight Loss) (4 sources) Start: 11-15-2022 Semaglutide (W eight Loss) (Wegovy) 0.5 mg/0.5 mL pen injector Active 0.5 mg SC EVERY WEEK 2 1 November 15, 2022 1:46pm Start: 11-15-2022 Semaglutide (W eight Loss) (Wegovy) 0.5 mg/0.5 mL pen injector Active 0.5 mg SC EVERY WEEK 2 November 15, 2022 1:46pm Start: 11-10-2022 End: 11-15-2022 Semaglutide (Weight Loss) (W egovy) 0.5 mg/0.5 mL pen injector Discontinued 0.5 mg SC EVERY WEEK 2 November 10, 2022 12:00am November 15, 2022 1:46pm Start: 11-10-2022 End: 11-15-2022 Semaglutide (Weight Loss) (W egovy) 0.5 mg/0.5 mL pen injector Discontinued 0.5 mg SC EVERY WEEK 2 November 10, 2022 12:00am November 15, 2022 1:46pm triamcinolone acetonide 0.055 mg/actuat metered dose nasal spray (2 sources) Corticosteroid Start: 04-27-2023 Triamcinolone Acetonide (Nasacort) 55 mcg aerosol,spray Active 2 NMA INTRANASAL DAILY 16.9 0 April 27, 2023 1:00am administer into each nostril WEGOVY 2.4 mg/0.75 mL pen injector (7 sources) Start: 02-20-2024 inject 2.4 mg by subcutaneous injection every week WEGOVY 2.4 mg/0.75 mL pen injector Inject 2.4 mg subcutaneously one time a week. 02/20/2024 Active Completed/Discontinued Medications Medication Drug Class(es) Dates Sig (Normalized) Sig (Original) acetaZOLAMIDE 250 mg oral tablet (6 sources) Carbonic Anhydrase Inhibitor Start: 08-17-2020 End: 08-24-2020 take 1 tablet by mouth twice daily Acetazolamide 250 mg tablet Discontinued 250 mg PO TWICE A DAY 60 1 August 17, 2020 12:00am August 24, 2020 8:52am ALPRAZolam 0.5 mg oral tablet (12 sources) Benzodiazepine Start: 06-14-2020 End: 11-24-2020 take 1 tablet by mouth twice daily as needed for anxiety Alprazolam 0.5 mg tablet Discontinued 0.5 mg PO TWICE A DAY as needed for anxiety 2 0 June 30, 2020 11:28am November 24, 2020 9:44am Anxiety disorder, unspecified amoxicillin 875 mg / clavulanate 125 mg oral tablet (16 sources) Penicillin-class Antibacterial Start: 12-22-2021 End: 01-01-2022 Amoxicillin-Pot Clavulanate 875-125 mg tablet Discontinued 1 {tbl} PO Q12H 20 10 0 December 22, 2021 12:00am December 31, 2021 12:00am January 01, 2022 12:03am Acute sinusitis, unspecified Start: 2019 End: 12-31-2019 take 1 tablet by mouth every twelve hours Amoxicillin-Pot Clavulanate 875 MG tablet Discontinued 875 mg PO Q12H 20 0 2019 12:00am December 31, 2019 8:05am Start: 07-29-2019 End: 10-01-2019 Amoxicillin-Pot Clavulanate 875-125 mg tablet Discontinued 1 {tbl} PO TWICE A DAY July 29, 2019 12:00am October 01, 2019 8:19am Start: 07-29-2019 End: 10-01-2019 take 1 tablet by mouth twice daily Amoxicillin-Pot Clavulanate Discontinued 1 TABLET PO TWICE A DAY July 29, 2019 12:00am October 01, 2019 8:19am amphetamine aspartate 7.5 mg / amphetamine sulfate 7.5 mg / dextroamphetamine saccharate 7.5 mg / dextroamphetamine sulfate 7.5 mg oral tablet (20 sources) Central Nervous System Stimulant Start: 12-26-2022 End: 01-25-2023 take 1 tablet by mouth twice daily Dextroamphetamine-Amphetamine 30 mg tablet Discontinued 30 mg PO TWICE A DAY 60 30 0 December 26, 2022 January 24, 2023 12:00am January 25, 2023 12:04am Attention deficit hyperactivity disorder (ADHD) Attention-deficit hyperactivity disorder, unspecified type Start: 09-26-2022 End: 12-24-2022 take 1 tablet by mouth twice daily Dextroamphetamine-Amphetamine 30 mg tabl et Discontinued 30 mg PO TWICE A DAY 60 30 0 November 24, 2022 December 23, 2022 12:00am December 24, 2022 12:03am Attention deficit hyperactivity disorder (ADHD) Attention-deficit hyperactivity disorder, unspecified type Start: 06-27-2022 End: 09-24-2022 take 1 tablet by mouth twice daily Dextroamphetamine-Amphetamine 30 mg tabl et Discontinued 30 mg PO TWICE A DAY 60 30 0 August 25, 2022 September 23, 2022 12:00am September 24, 2022 12:04am Attention deficit hyperactivity disorder (ADHD) Attention-deficit hyperactivity disorder, unspecified type Start: 04-26-2022 End: 06-16-2022 take 1 tablet by mouth twice daily Dextroamphetamine-Amphetamine 30 mg tabl et Discontinued 30 mg PO TWICE A DAY 60 30 0 May 17, 2022 June 15, 2022 1:00am June 16, 2022 1:05am Attention deficit hyperactivity disorder (ADHD) Attention-deficit hyperactivity disorder, unspecified type Start: 12-26-2021 End: 04-22-2022 take 1 tablet by mouth twice daily Dextroamphetamine-Amphetamine 30 mg tabl et Discontinued 30 mg PO TWICE A DAY 60 30 0 March 23, 2022 April 21, 2022 1:00am April 22, 2022 1:09am Attention deficit hyperactivity disorder (ADHD) Attention-deficit hyperactivity disorder, unspecified type Start: 11-24-2021 End: 12-25-2021 take 1 tablet by mouth twice daily Dextroamphetamine-Amphetamine 30 mg tabl et Discontinued 30 mg PO TWICE A DAY 60 30 0 November 25, 2021 December 24, 2021 12:00am December 25, 2021 12:04am Attention deficit hyperactivity disorder (ADHD) Attention-deficit hyperactivity disorder, unspecified type Start: 10-27-2021 End: 10-27-2021 take 1 tablet by mouth twice daily Dextroamphetamine-Amphetamine 30 mg tabl et Discontinued 30 mg PO TWICE A DAY 60 30 0 October 27, 2021 November 25, 2021 12:00am October 27, 2021 10:42am Attention deficit hyperactivity disorder (ADHD) Attention-deficit hyperactivity disorder, unspecified type Start: 09-27-2021 End: 11-24-2021 take 1 tablet by mouth twice daily Dextroamphetamine-Amphetamine 30 mg tabl et Discontinued 30 mg PO TWICE A DAY 60 30 0 October 27, 2021 November 25, 2021 12:00am November 24, 2021 5:33pm Attention deficit hyperactivity disorder (ADHD) Attention-deficit hyperactivity disorder, unspecified type Start: 07-31-2021 End: 09-25-2021 take 1 tablet by mouth twice daily Dextroamphetamine-Amphetamine 30 mg tabl et Discontinued 30 mg PO TWICE A DAY 60 30 0 August 26, 2021 September 24, 2021 12:00am September 25, 2021 12:05am Attention deficit hyperactivity disorder (ADHD) Attention-deficit hyperactivity disorder, unspecified type Start: 05-30-2021 End: 07-28-2021 take 1 tablet by mouth twice daily Dextroamphetamine-Amphetamine 30 mg tabl et Discontinued 30 mg PO TWICE A DAY 60 30 0 June 28, 2021 July 27, 2021 12:00am July 28, 2021 12:03am Attention deficit hyperactivity disorder (ADHD) Attention-deficit hyperactivity disorder, unspecified type Start: 03-29-2021 End: 05-28-2021 take 1 tablet by mouth twice daily Dextroamphetamine-Amphetamine 30 mg tabl et Discontinued 30 mg PO TWICE A DAY 60 30 0 April 28, 2021 May 27, 2021 1:00am May 28, 2021 1:01am Attention deficit hyperactivity disorder (ADHD) Attention-deficit hyperactivity disorder, unspecified type Start: 02-25-2021 End: 03-27-2021 take 1 tablet by mouth twice daily Dextroamphetamine-Amphetamine 30 mg tabl et Discontinued 30 mg PO TWICE A DAY 60 30 0 February 25, 2021 March 26, 2021 1:00am March 27, 2021 1:01am Attention deficit hyperactivity disorder (ADHD) Attention-deficit hyperactivity disorder, unspecified type Start: 01-28-2021 End: 01-28-2021 take 1 tablet by mouth twice daily Dextroamphetamine-Amphetamine 30 mg tabl et Discontinued 30 mg PO TWICE A DAY 30 30 0 January 28, 2021 February 26, 2021 12:00am January 28, 2021 10:29am Attention deficit hyperactivity disorder (ADHD) Attention-deficit hyperactivity disorder, unspecified type Start: 01-28-2021 End: 02-25-2021 take 1 tablet by mouth twice daily Dextroamphetamine-Amphetamine 30 mg tabl et Discontinued 30 mg PO TWICE A DAY 60 30 0 January 28, 2021 February 26, 2021 12:00am February 25, 2021 1:23pm Attention deficit hyperactivity disorder (ADHD) Attention-deficit hyperactivity disorder, unspecified type Start: 12-29-2020 End: 12-29-2020 take 1 tablet by mouth twice daily Dextroamphetamine-Amphetamine 30 mg tabl et Discontinued 30 mg PO TWICE A DAY 60 30 0 December 29, 2020 January 27, 2021 12:00am December 29, 2020 11:31am Attention deficit hyperactivity disorder (ADHD) Attention-deficit hyperactivity disorder, unspecified type Start: 12-29-2020 End: 03-27-2021 take 1 tablet by mouth twice daily Dextroamphetamine-Amphetamine 30 mg tabl et Discontinued 30 mg PO TWICE A DAY 30 30 0 December 29, 2020 January 27, 2021 12:00am January 28, 2021 12:01am Attention deficit hyperactivity disorder (ADHD) Attention-deficit hyperactivity disorder, unspecified type Start: 12-27-2020 End: 02-27-2024 take 1 tablet by mouth once daily Dextroamphetamine-Amphetamine 30 mg tabl et Discontinued 30 mg PO DAILY 30 30 0 December 28, 2020 January 26, 2021 12:00am December 29, 2020 11:29am Attention deficit hyperactivity disorder (ADHD) Attention-deficit hyperactivity disorder, unspecified type Start: 07-29-2018 End: 07-29-2018 take 1 capsule by mouth twice daily Dextroamphetamine-Amphetamine 30 mg capsule,extended release 24hr Discontinued 30 mg PO TWICE A DAY 60 0 July 29, 2018 July 29, 2018 12:06pm Attention-deficit hyperactivity disorder, unspecified type Start: 07-29-2018 End: 07-29-2018 take 1 capsule by mouth twice daily Dextroamphetamine-Amphetamine 30 mg capsule,extended release 24hr Discontinued 30 mg PO TWICE A DAY 60 July 29, 2018 July 29, 2018 12:06pm Start: 07-29-2018 End: 07-29-2018 take 30 mg by mouth twice daily Dextroamphetamine-Amphetamine Discontinu ed 30 MG PO TWICE A DAY 60 July 29, 2018 July 29, 2018 12:06pm Start: 07-29-2018 End: 07-29-2018 take 30 mg by mouth twice daily Dextroamphetamine-Amphetamine Discontinu ed 30 MG PO TWICE A DAY 60 July 29, 2018 July 29, 2018 11:06am Start: 07-29-2018 End: 12-26-2020 take 1 tablet by mouth twice daily Dextroamphetamine-Amphetamine 30 mg tabl et Discontinued 30 mg PO TWICE A DAY 60 30 0 November 26, 2020 December 25, 2020 12:00am December 26, 2020 12:01am Attention-deficit hyperactivity disorder, unspecified type Start: 09-26-2013 End: 07-29-2018 take 1 capsule by mouth twice daily Dextroamphetamine-Amphetamine 30 MG capsule,extended release 24hr Discontinued 30 mg PO TWICE A DAY September 26, 2013 12:00am July 26, 2018 12:20pm Comment on above: Take 30 mg by mouth once daily. Atogepant (14 sources) Start: 08-17-2022 End: 04-18-2023 take 1 tablet by mouth once daily Atogepant (Qulipta) 60 mg tablet Discontinued 60 mg PO DAILY 30 August 17, 2022 9:26am April 18, 2023 9:28am Migraine headache Migraine, unspecified, not intractable, without status migrainosus Start: 08-17-2022 End: 04-18-2023 take 1 tablet by mouth once daily Atogepant (Qulipta) 60 mg tablet Discontinued 60 mg PO DAILY August 17, 2022 9:26am April 18, 2023 9:28am Start: 08-17-2022 take 1 tablet by sukhdeep th once daily Atogepant (Qulipta) 60 mg tablet Active 60 MG PO DAILY August 17, 2022 9:26am Start: 07-19-2022 End: 08-17-2022 take 1 tablet by mouth once daily Atogepant (Qulipta) 60 mg tablet Discontinued 60 mg PO DAILY 30 July 19, 2022 2:42pm August 17, 2022 9:27am Migraine headache Migraine, unspecified, not intractable, without status migrainosus Start: 07-19-2022 End: 08-17-2022 take 1 tablet by mouth once daily Atogepant (Qulipta) 60 mg tablet Discontinued 60 mg PO DAILY July 19, 2022 2:42pm August 17, 2022 9:27am Start: 07-19-2022 End: 08-17-2022 take 1 tablet by mouth once daily Atogepant (Qulipta) 60 mg tablet Discontinued 60 MG PO DAILY July 19, 2022 2:42pm August 17, 2022 9:27am Start: 06-27-2021 End: 09-20-2021 Atogepant (Qulipta) 60 mg ta blet Discontinued June 27, 2021 10:25am September 20, 2021 8:15am Start: 06-27-2021 take 1 tablet by sukhdeep th once daily Atogepant (Qulipta) 60 mg tablet Active 60 MG PO DAILY June 27, 2021 10:21am Start: 06-27-2021 End: 07-19-2022 take 1 tablet by mouth once daily Atogepant (Qulipta) 60 mg tablet Discontinued 60 mg PO DAILY 12 04June 27, 2021 1:00am July 19, 2022 2:42pm Migraine headache Migraine, unspecified, not intractable, without status migrainosus Start: 06-27-2021 End: 07-19-2022 take 1 tablet by mouth once daily Atogepant (Qulipta) 60 mg tablet Discontinued 60 mg PO DAILY June 27, 2021 1:00am July 19, 2022 2:42pm Start: 06-27-2021 End: 07-19-2022 take 1 tablet by mouth once daily Atogepant (Qulipta) 60 mg tablet Discontinued 60 MG PO DAILY June 27, 2021 1:00am July 19, 2022 2:42pm Start: 06-27-2021 take 1 tablet by sukhdeep th once daily Atogepant (Qulipta) 60 mg tablet Active 60 MG PO DAILY June 27, 2021 12:00am azithromycin 250 mg oral tablet (2 sources) Macrolide Antimicrobial Start: 03-13-2024 End: 10-02-2024 take 2-5 tablets by mouth once daily Azithromycin 250 mg tablet Discontinued 0 PO .COMPLEX 6 0 March 13, 2024 12:00am October 02, 2024 8:21am take 500 mg today (day 1), then 250 mg for 4 days (days 2-5) PO biotin 1 mg oral capsule (16 sources) Start: 04-26-2021 End: 05-17-2022 take 1 capsule by mouth once daily Biotin 1 mg capsule Discontinued 1 mg PO DAILY 30 November 07, 2021 10:58am May 17, 2022 9:41am 24 hr buPROPion hydrochloride 300 mg extended release oral tablet (20 sources) Aminoketone Start: 07-26-2018 End: 04-04-2019 take 1 tablet by mouth once daily Bupropion Hcl 300 mg tablet extended release 24 hr Discontinued 300 mg PO DAILY July 26, 2018 11:36am April 04, 2019 9:15am Start: 09-13-2017 End: 07-26-2018 take 1 tablet by mouth once daily Bupropion Hcl 150 MG tablet extended release 24 hr Discontinued 150 mg PO DAILY September 13, 2017 12:00am July 26, 2018 11:37am Comment on above: Take 150 mg by mouth once daily. busPIRone hydrochloride 5 mg oral tablet (20 sources) Start: 11-30-2020 End: 12-27-2020 take 2.5 mg by mouth twice daily Buspirone 5 mg tablet Discontinued 2.5 mg PO TWICE A DAY November 30, 2020 7:50am December 27, 2020 9:26am Start: 11-30-2020 End: 12-27-2020 take 2.5 mg by mouth twice daily Buspirone Discontinued 2.5 MG PO TWICE A DAY November 30, 2020 7:50am December 27, 2020 9:26am Start: 09-14-2020 End: 04-26-2021 take 1 tablet by mouth twice daily Buspirone 5 mg tablet Discontinued 5 mg PO TWICE A DAY December 27, 2020 9:25am December 27, 2020 9:28am Comment on above: Take by mouth. cephalexin 500 mg oral capsule (2 sources) Cephalosporin Antibacterial Start: 04-08-20 End: 10-03-19 take 1 capsule by mouth three times daily Cephalexin 500 mg capsule Discontinued 500 mg PO THREE TIMES A DAY 30 0 April 08, 2024 1:00am October 02, 2024 8:21am cetirizine hydrochloride 10 mg oral tablet (12 sources) Histamine-1 Receptor Antagonist Start: 09-15-19 End: 12-28-19 take 1 tablet by mouth once daily Cetirizine (Zyrtec) 10 mg tablet Discontinued 10 mg PO DAILY 30 2 October 28, 2020 10:09am December 27, 2020 9:25am copper 313 mg drug implant (6 sources) Copper-containing Intrauterine Device Start: 07-27-19 End: 11-04-19 20 Copper (Paragard T 380a) 380 square mm intrauterine device Discontinued 1 NMA INTRA-UTER ONCE July 26, 2018 12:00am November 04, 2019 9:28am Start: 07-26-2018 End: 11-04-2019 Copper (Paragard T 380a) 380 square mm intrauterine device Discontinued 1 DEVICE INTRA-UTER ONCE July 26, 2018 12:00am November 04, 2019 9:28am cyclobenzaprine hydrochloride 10 mg oral tablet (6 sources) Muscle Relaxant Start: 02-18-2021 End: 06-28-2021 take 5-10 mg by mouth three times daily as needed for muscle spasms Cyclobenzaprine 10 mg tablet Discontinued 5 - 10 mg PO THREE TIMES A DAY as needed for muscle spasm 30 0 February 18, 2021 12:00am June 28, 2021 10:36am dicyclomine hydrochloride 10 mg oral capsule (12 sources) Anticholinergic Start: 2019 End: 12-31-2019 take 2 capsules by mouth three times daily before mealtime Dicyclomine 10 mg capsule Discontinued 20 mg PO THREE TIMES DAILY BEFORE MEALS 20 0 December 12, 2019 9:16am December 31, 2019 8:06am Start: 2019 End: 12-31-2019 take 20 mg by mouth three times daily before mealtime Dicyclomine Discontinued 20 MG PO THREE TIMES DAILY BEFORE MEALS 20 December 12, 2019 9:16am December 31, 2019 8:06am ergocalciferol 1.25 mg oral capsule (20 sources) Provitamin D2 Compound Start: 09-20-2021 End: 06-27-2022 Ergocalciferol (Vitamin D2) 1,250 mcg (50,000 unit) capsule Discontinued 37534 U PO EVERY WEEK 8 December 13, 2021 8:39am June 27, 2022 5:31pm Start: 09-20-2021 End: 06-27-2022 take 27061 [IU] by mouth every week Ergocalciferol (Vitamin D2) Active 35129 UNIT PO EVERY WEEK 8 June 27, 2022 5:31pm escitalopram 20 mg oral tablet (20 sources) Serotonin Reuptake Inhibitor Start: 06-27-2021 End: 07-04-2021 take 1 tablet by mouth once daily Escitalopram Oxalate 10 mg tablet Discontinued 10 mg PO DAILY 7 7 0 June 27, 2021 1:00am July 03, 2021 1:00am July 04, 2021 1:02am Start: 06-27-2021 End: 08-17-2022 take 1 tablet by mouth once daily Escitalopram Oxalate 20 mg tablet Discontinued 20 mg PO DAILY 30 0 October 26, 2021 8:15am November 07, 2021 10:59am Start: 03-31-2020 End: 04-26-2021 take 1 tablet by mouth once daily Escitalopram Oxalate 20 mg tablet Discontinued 20 mg PO DAILY 90 1 January 05, 2021 12:23pm April 26, 2021 10:27am Start: 12-31-2019 End: 03-31-2020 take 1 tablet by mouth once daily Escitalopram Oxalate 10 mg tablet Discontinued 10 mg PO DAILY 90 1 December 31, 2019 8:25am March 31, 2020 9:25am Start: 10-01-2019 End: 12-31-2019 take 1 tablet by mouth once daily Escitalopram Oxalate (Lexapro) 5 mg tablet Discontinued 5 mg PO DAILY 90 1 October 01, 2019 12:00am December 31, 2019 8:28am fluconazole 150 mg oral tablet (6 sources) Azole Antifungal Start: 07-29-2019 End: 10-01-2019 take 1 tablet by mouth once Fluconazole 150 mg tablet Discontinued 150 mg PO ONCE 1 0 July 29, 2019 12:00am October 01, 2019 8:18am as a single dose fluticasone propionate 0.05 mg/actuat metered dose nasal spray (6 sources) Corticosteroid Start: 01-20-2021 End: 09-20-2021 take 50 ug nasal route once daily Fluticasone Propionate (Flonase Allergy Relief) 50 mcg/actuation spray,suspension Discontinued 2 NMA INTRANASAL DAILY 15.8 1 January 20, 2021 12:00am September 20, 2021 8:15am administer into each nostril Start: 01-20-2021 End: 09-20-2021 take 1 spray(s) nasal route once daily Fluticasone Propionate (Flonase Allergy Relief) 50 mcg/actuation spray,suspension Discontinued 2 SPRAY INTRANASAL DAILY 15.8 January 20, 2021 12:00am September 20, 2021 8:15am administer into each nostril guaiFENesin 40 mg/ml oral solution (2 sources) Start: 04-27-2023 End: 10-02-2024 take 400 mg by mouth every four hours as needed for congestion Guaifenesin 200 mg/5 mL liquid Discontinued 400 mg PO Q4H as needed for congestion 473 0 April 27, 2023 1:00am October 02, 2024 8:21am hydrocortisone 0.025 mg/mg topical ointment (6 sources) Corticosteroid Start: 08-02-2018 End: 01-03-2019 Hydrocortisone 2.5 % ointment Discontinued 1 NMA TOPICAL TWICE A DAY 28.35 0 August 02, 2018 12:00am January 03, 2019 8:01am ibuprofen 800 mg oral tablet (12 sources) Nonsteroidal Anti-inflammatory Drug Start: 12-23-2021 End: 08-17-2022 take 1 tablet by mouth every eight hours as needed for pain Ibuprofen 800 mg tablet Discontinued 800 mg PO Q8H as needed for pain 30 0 December 23, 2021 12:00am August 17, 2022 8:58am Start: 03-30-2015 take 1 tablet by sukhdeep th every six hours as needed ibuprofen (MOTRIN) 600 mg tablet Take 1 tablet by mouth every 6 hours as needed. 30 tablet 0 03/30/2015 Active Comment on above: Take 1 tablet by sukhdeep th every 6 hours as needed. Savnloezkt-Fklldyw-Lcx obalamin (Folinic-Plus) 4-50-2 mg tablet (16 sources) Start: 11-07-2021 End: 05-17-2022 Wkuxtlaecg-Fzwqykv-Cweinsq south (Folinic-Plus) 4-50-2 mg tablet Discontinued 1 NMA PO DAILY 10 08November 07, 2021 10:59am May 17, 2022 9:41am Start: 11-07-2021 End: 05-17-2022 Asoevavetc-Gikrmek-Npmggnucz in (Folinic-Plus) 4-50-2 mg tablet Discontinued 1 NMA PO DAILY November 07, 2021 10:59am May 17, 2022 9:41am Start: 11-07-2021 End: 05-17-2022 take 1 tablet by mouth once daily Zhjqyotnog-Olyprai-Wkiccgfscvz (Folinic- Plus) 4-50-2 mg tablet Discontinued 1 TAB-CAP PO DAILY November 07, 2021 10:59am May 17, 2022 9:41am Start: 11-07-2021 End: 05-17-2022 take 1 tablet by mouth once daily Hzkkjjgryk-Ohtakcy-Ywwexrjxtdf (Folinic- Plus) 4-50-2 mg tablet Discontinued 1 TAB-CAP PO DAILY November 07, 2021 9:59am May 17, 2022 8:41am Start: 06-27-2021 End: 11-07-2021 Gaogsectmi-Vagvjjc-Oqmgghstx in (Folinic-Plus) 4-50-2 mg tablet Discontinued 1 NMA PO DAILY 10 08June 27, 2021 10:39am November 07, 2021 10:59am Start: 06-27-2021 End: 11-07-2021 Vxexywytyw-Vefuwya-Oycroincl in (Folinic-Plus) 4-50-2 mg tablet Discontinued 1 NMA PO DAILY June 27, 2021 10:39am November 07, 2021 10:59am Start: 06-27-2021 End: 11-07-2021 take 1 tablet by mouth once daily Rucmftudee-Hepwzhs-Gzzaauevslx (Folinic- Plus) 4-50-2 mg tablet Discontinued 1 TAB-CAP PO DAILY June 27, 2021 10:39am November 07, 2021 10:59am Start: 06-27-2021 End: 11-07-2021 take 1 tablet by mouth once daily Hqdgkxgdqt-Isgtlxf-Cguhliejdin (Folinic- Plus) 4-50-2 mg tablet Discontinued 1 TAB-CAP PO DAILY June 27, 2021 9:39am November 07, 2021 9:59am Start: 06-27-2021 take 1 tablet by sukhdeep th once daily Xmxlybtlbk-Yizjmnw-Kezoryvcunx (Folinic- Plus) 4-50-2 mg tablet Active 1 TAB-CAP PO DAILY June 27, 2021 10:39am Start: 04-26-2021 End: 06-27-2021 take 1 tablet by mouth once daily Zetnbgmrzc-Knbgrja-Pnpahoheiry (Folinic- Plus) 4-50-2 mg tablet Discontinued 1 TAB-CAP PO DAILY April 26, 2021 10:18am June 27, 2021 10:40am Start: 04-26-2021 End: 06-27-2021 Zvqfxveacd-Ohcjqdq-Junmjkmmw in (Folinic-Plus) 4-50-2 mg tablet Discontinued 1 NMA PO DAILY 10 08April 26, 2021 1:00am June 27, 2021 10:40am Start: 04-26-2021 End: 06-27-2021 Xfsadnfjhp-Uxqgvbf-Vfawjiryh in (Folinic-Plus) 4-50-2 mg tablet Discontinued 1 NMA PO DAILY April 26, 2021 1:00am June 27, 2021 10:40am Start: 04-26-2021 End: 06-27-2021 take 1 tablet by mouth once daily Wpwvyfatmz-Ltaqqrx-Xiipkvsmdny (Folinic- Plus) 4-50-2 mg tablet Discontinued 1 TAB-CAP PO DAILY April 26, 2021 1:00am June 27, 2021 10:40am Start: 04-26-2021 End: 06-27-2021 take 1 tablet by mouth once daily Uilmhgltul-Jfrogjl-Yoznuxqfruk (Folinic- Plus) 4-50-2 mg tablet Discontinued 1 TAB-CAP PO DAILY April 26, 2021 12:00am June 27, 2021 9:40am Lidocaine (4 sources) Antiarrhythmic, Amide Local Anesthetic Start: 12-23-2021 End: 05-17-2022 Lidocaine Hcl (Lidocaine Viscous) 2 % solution Discontinued 1 NMA MUCOUS MEM THREE TIMES A DAY as needed for pain 100 December 23, 2021 12:00am May 17, 2022 9:41am Start: 12-23-2021 End: 05-17-2022 Lidocaine Hcl (Lidocaine Vis cous) 2 % solution Discontinued 1 NMA MUCOUS MEM THREE TIMES A DAY as needed for pain 100 December 23, 2021 12:00am May 17, 2022 9:41am Start: 12-23-2021 End: 05-17-2022 Lidocaine Hcl (Lidocaine Vis cous) 2 % solution Discontinued 1 APPLIC MUCOUS MEM THREE TIMES A DAY December 23, 2021 12:00am May 17, 2022 9:41am Start: 12-23-2021 End: 05-17-2022 Lidocaine Hcl (Lidocaine Vis cous) 2 % solution Discontinued 1 APPLIC MUCOUS MEM THREE TIMES A DAY December 22, 2021 11:00pm May 17, 2022 8:41am LORazepam 0.5 mg oral tablet (4 sources) Benzodiazepine Start: 05-17-2022 End: 08-17-2022 Lorazepam 0.5 mg tablet Discontinued 0.5 mg PO DAILY as needed for flight anxiety 4 0 May 17, 2022 1:00am August 17, 2022 8:58am take 30 min prior to flight methylPREDNISolone 4 mg oral tablet (6 sources) Corticosteroid Start: 08-02-2018 End: 09-27-2018 take 1 tablet by mouth once Methylprednisolone (Medrol (Chavo)) 4 mg tablets,dose pack Discontinued 0 PO per package directions August 02, 2018 12:00am September 27, 2018 8:59am PO PER PKG DIR nabumetone 500 mg oral tablet (6 sources) Nonsteroidal Anti-inflammatory Drug Start: 07-08-2020 End: 11-24-2020 take 1 tablet by mouth twice daily as needed for headache Nabumetone 500 mg tablet Discontinued 500 mg PO TWICE A DAY as needed for migraine headache July 08, 2020 1:00am November 24, 2020 9:44am naproxen 500 mg oral tablet (6 sources) Nonsteroidal Anti-inflammatory Drug Start: 10-07-2020 End: 11-24-2020 take 1 tablet by mouth twice daily as needed for pain Naproxen (Naprosyn) 500 mg tablet Discontinued 500 mg PO TWICE A DAY as needed for pain October 07, 2020 12:00am November 24, 2020 9:45am omeprazole 40 mg delayed release oral capsule (6 sources) Proton Pump Inhibitor Start: 04-02-2018 End: 07-26-2018 take 1 capsule by mouth once daily Omeprazole 40 MG capsule,delayed release(DR/EC) Discontinued 40 mg PO DAILY 30 April 02, 2018 1:00am July 26, 2018 11:03am ondansetron 4 mg disintegrating oral tablet (6 sources) Serotonin-3 Receptor Antagonist Start: 2019 End: 12-31-2019 take 1 tablet by mouth every eight hours as needed for nausea Ondansetron 4 MG tablet Discontinued 4 mg PO EVERY 8 HOURS NEEDED as needed for Nausea 2019 12:00am December 31, 2019 8:05am oseltamivir 75 mg oral capsule (2 sources) Neuraminidase Inhibitor Start: 04-25-2023 End: 04-30-2023 take 1 capsule by mouth every twelve hours Oseltamivir 75 mg capsule Discontinued 75 mg PO Q12H 10 April 25, 2023 1:00am April 29, 2023 1:00am April 30, 2023 1:05am predniSONE 10 mg oral tablet (5 sources) Start: 10-02-2024 End: 10-14-2024 Prednisone 10 mg tablet Discontinued 10 mg PO As Directed 28 October 02, 2024 12:00am October 13, 2024 12:00am October 14, 2024 12:07am Unspecified contact dermatitis, unspecified cause Take 4 tabs once daily days 1-3 3 tabs once daily days 4-6 2 tabs once daily days 7-9 and 1 tab once daily days 10-12. Start: 03-01-2022 End: 05-17-2022 take 1 tablet by mouth once daily Prednisone 20 mg tablet Discontinued 20 mg PO DAILY March 01, 2022 12:00am May 17, 2022 9:42am promethazine hydrochloride 25 mg oral tablet (6 sources) Phenothiazine Start: 07-08-2020 End: 11-24-2020 take 12.5-25 mg by mouth twice daily as needed for nausea and vomiting Promethazine 25 mg tablet Discontinued 12.5 - 25 mg PO TWICE A DAY as needed for nausea and vomiting 20 July 08, 2020 1:00am November 24, 2020 9:45am propranolol hydrochloride 40 mg oral tablet (12 sources) beta-Adrenergic Kati Start: 07-08-2020 End: 08-17-2020 take 1 tablet by mouth twice daily Propranolol 40 mg tablet Discontinued 40 mg PO TWICE A DAY 180 July 08, 2020 11:21am August 17, 2020 8:11am Start: 06-30-2020 End: 07-08-2020 take 1 tablet by mouth twice daily Propranolol 20 mg tablet Discontinued 20 mg PO TWICE A DAY 60 June 30, 2020 1:00am July 08, 2020 11:25am sertraline 50 mg oral tablet (6 sources) Serotonin Reuptake Inhibitor Start: 07-29-2019 End: 10-01-2019 take 1 tablet by mouth once daily Sertraline 50 mg tablet Discontinued 50 mg PO DAILY 30 July 29, 2019 12:00am October 01, 2019 8:18am sodium chloride 0.111 meq/ml nasal spray (4 sources) Start: 12-23-2021 End: 05-17-2022 Sodium Chloride ([place] Nasal) 0.65 % aerosol,spray Discontinued 2 NMA INTRANASAL Q4H as needed for nasal congestion 104 2 December 23, 2021 12:00am May 17, 2022 9:42am Start: 12-23-2021 End: 05-17-2022 Sodium Chloride ([place] Nasal ) 0.65 % aerosol,spray Discontinued 2 SPRAY INTRANASAL Q4H 104 December 23, 2021 12:00am May 17, 2022 9:42am sucralfate 1000 mg oral tablet (6 sources) Aluminum Complex Start: 04-02-2018 End: 07-26-2018 take 1 tablet by mouth four times daily Sucralfate 1 GM tablet Discontinued 1 g PO 4 TIMES DAILY 60 0 April 02, 2018 1:00am July 26, 2018 11:03am SUMAtriptan 100 mg oral tablet (20 sources) Serotonin-1b and Serotonin-1d Receptor Agonist Start: 10-28-2020 End: 04-18-2023 take 1 tablet by mouth every two hours as needed for headache, then take 2 tablets by mouth once daily as needed for headache Sumatriptan Succinate 100 mg tablet Discontinued 100 mg .ROUTE .COMPLEX as needed for migraine headache 9 August 17, 2022 9:24am April 18, 2023 9:29am Take 1 tablet orally every 2 hours as needed for headache up to 2 tablets daily Start: 10-16-2020 SUMAtriptan (I MITREX) 50 mg tablet Take one tablet every two hours as needed for headache. Max 2 tablets per day. 10/16/2020 Active Start: 07-15-2020 End: 10-28-2020 take 2 tablets by mouth once daily as needed Sumatriptan Succinate 50 mg tablet Discontinued 50 mg PO .COMPLEX 9 September 14, 2020 9:28am October 28, 2020 9:22am 50 mg PO every two hours as needed for headache up to two tablets per day Start: 10-01-2019 End: 07-15-2020 take 1 tablet by mouth every two hours Sumatriptan Succinate (Imitrex) 25 mg tablet Discontinued 0 PO .COMPLEX 14 January 30, 2020 9:58am March 31, 2020 9:26am take 1 tab at onset of headache; if no relief may repeat 1 tab after at least 2 hrs; max = 4 tabs/24 hr PO Comment on above: take 1 (ONE) tab BY MOUTH at onset of headache; if no relief, may repeat 1 (ONE) tab after at least 2 (TWO) HOURS; max = 2 (TWO) tabs/24 GWENDOLYN Take one tablet ever y two hours as needed for headache. Max 2 tablets per day. topiramate 100 mg oral tablet (20 sources) Start: 09-14-2020 End: 08-17-2022 take 1 tablet by mouth twice daily Topiramate 100 mg tablet Discontinued 100 mg PO TWICE A DAY 60 6 February 16, 2022 3:56pm August 17, 2022 9:24am Start: 08-24-2020 End: 09-14-2020 Topiramate 100 mg tablet Discontinued 100 mg PO TWICE A DAY 60 1 August 24, 2020 12:00am September 14, 2020 9:32am start after completing 1 week titration of topiramate 50mg QAM and 100mg QHS Start: 08-17-2020 End: 09-14-2020 take 1 tablet by mouth twice daily Topiramate 50 mg tablet Discontinued 50 mg PO TWICE A DAY 60 0 August 17, 2020 8:45am September 14, 2020 9:18am Start: 07-15-2020 End: 08-17-2020 take 1 tablet by mouth once daily, then take 1 tablet by mouth twice daily Topiramate 50 mg tablet Discontinued 50 mg PO .COMPLEX 60 July 15, 2020 1:00am August 17, 2020 8:47am 50 mg PO daily for one week then 50mg PO BID thereafter Comment on above: Take 100 mg by mouth twice daily. traMADol hydrochloride 50 mg oral tablet (12 sources) Opioid Agonist Start: End: take 1 tablet by mouth every twelve hours as needed for pain Tramadol 50 mg tablet Discontinued 50 mg PO Q12H as needed for pain 14 0 November 24, 2020 12:00am June 28, 2021 10:36am Start: 12-12-2019 End: 12-31-2019 take 1 tablet by mouth every twelve hours as needed for pain Tramadol 50 mg tablet Discontinued 50 mg PO Q12H as needed for pain 14 0 December 12, 2019 12:00am December 31, 2019 8:05am 24 hr venlafaxine 75 mg extended release oral capsule (6 sources) Serotonin and Norepinephrine Reuptake Inhibitor Start: 04-26-2021 End: 06-27-2021 take 1 capsule by mouth once daily Venlafaxine 75 mg capsule,extended release 24hr Discontinued 75 mg PO DAILY 30 2 April 26, 2021 1:00am June 27, 2021 10:19am Problems Active Problems Problem Classification Problem Date Documented Date Episodic/Chronic Acute bronchitis (2 sources) Acute bronchitis; Translations: [Acute bronchitis, unspecified] 03-13-2024 Episodic Administrative/socia l admission (8 sources) Patient encounter status; Translations: [Encounter for pre-employment examination] 09-22-2020 Episodic Allergic reactions (6 sources) Inflammatory dermatosis; Translations: [Dermatitis, unspecified] 07-26-2018 Episodic Anxiety disorders (11 sources) Mixed anxiety and depressive disorder; Translations: [Anxiety disorder, unspecified] Chronic Attention-deficit, conduct, and disruptive behavior disorders (6 sources) Attention deficit hyperactivity disorder; Translations: [Attention-deficit hyperactivity disorder, unspecified type] 07-26-2018 Chronic Attention-deficit, conduct, and disruptive behavior disorders (7 sources) Attention-deficit hyperactivity disorder, unspecified type; Translations: [Attention deficit disorder with hyperactivity] Chronic Chronic obstructive pulmonary disease and bronchiectasis (6 sources) Bronchitis; Translations: [Bronchitis, not specified as acute or chronic] 2019 Episodic Deficiency and other anemia (6 sources) Anemia; Translations: [Anemia, unspecified] 2019 Episodic Diseases of white blood cells (4 sources) White blood cell abnormality; Translations: [Disorder of white blood cells, unspecified] 10-13-2021 Chronic Comment on above: 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 Can be related to smoking and weight. Gastritis and duodenitis (6 sources) Gastritis; Translations: [Gastritis, unspecified, without bleeding] 04-03-2018 Episodic Headache; including migraine (13 sources) Migraine; Translations: [Migraine, unspecified, not intractable, without status migrainosus] Chronic Headache; including migraine (6 sources) Chronic headache disorder; Translations: [Chronic headache] 2019 Episodic Immunizations and screening for infectious disease (20 sources) Contact with or exposure to other viral diseases; Translations: [Exposure to COVID-19 virus] 05-23-2021 Episodic Inflammation; infection of eye (except that caused by tuberculosis or sexually transmitteddisease) (12 sources) Infectious secondary iritis; Translations: [Secondary infectious iridocyclitis, unspecified eye] 06-03-2020 Episodic Menstrual disorders (8 sources) Amenorrhea; Translations: [Amenorrhea, unspecified] Onset: 10-04-2012 10-04-2012 Chronic Mood disorders (6 sources) Depressive disorder; Translations: [Depression] 2019 Chronic Open wounds of head; neck; and trunk (6 sources) Laceration of nose; Translations: [Laceration without foreign body of nose, initial encounter] 11-30-2020 Episodic Other ear and sense organ disorders (6 sources) Otitis externa; Translations: [Unspecified otitis externa, left ear] 12-29-2017 Chronic Other ear and sense organ disorders (2 sources) Infection of external auditory canal; Translations: [Other infective otitis externa, unspecified ear] 04-08-2024 Chronic Other ear and sense organ disorders (1 source) Other infective otitis externa, unspecified ear; Translations: [Other infective otitis externa, unspecified ear] Onset: 04-08-2024 Chronic Other female genital disorders (2 sources) Abnormal uterine bleeding; Translations: [Abnormal uterine and vaginal bleeding, unspecified] 02-27-2024 Chronic Other female genital disorders (1 source) Abnormal uterine and vaginal bleeding, unspecified; Translations: [Abnormal uterine bleeding] Onset: 03-06-2024 Chronic Other female genital disorders (8 sources) Cervical intraepithelial neoplasia grade 2; Translations: [Moderate cervical dysplasia] 05-09-2021 Episodic Other injuries and conditions due to external causes (6 sources) Fracture of bone; Translations: [Other injury of unspecified body region, initial encounter] 2019 Episodic Comment on above: Rt hand Other injuries and conditions due to external causes (1 source) Unspecified injury of unspecified wrist, hand and finger(s), initial encounter; Translations: [Unspecified injury of unspecified wrist, hand and finger(s), initial encounter] Onset: 10-02-2024 Episodic Other nervous system disorders (6 sources) Benign intracranial hypertension; Translations: [Benign intracranial hypertension] 08-17-2020 Chronic Other nervous system disorders (6 sources) Benign intracranial hypertension; Translations: [Benign intracranial hypertension] Chronic Other nervous system disorders (6 sources) H/O: [employer]ANT INS[employer] disorder; Translations: [Personal history of other diseases of the nervous system and sense organs] 02-16-2022 Episodic Other nervous system disorders (6 sources) Personal history of other diseases of the nervous system and sense organs; Translations: [Personal history of other disorders of nervous system and sense organs] Episodic Other non-traumatic joint disorders (6 sources) Ankle pain; Translations: [Pain in right ankle and joints of right foot] 11-24-2020 Episodic Other nutritional; endocrine; and metabolic disorders (12 sources) Body mass index 30+ - obesity; Translations: [Body mass index (BMI) 35.0-35.9, adult] 02-09-2021 Chronic Other nutritional; endocrine; and metabolic disorders (1 source) Metabolic syndrome; Translations: [Metabolic syndrome] Onset: 01-12-2024 Chronic Other screening for suspected conditions (not mental disorders or infectious disease) (3 sources) Cancer cervix screening status; Translations: [Encounter for screening for malignant neoplasm of cervix] 02-27-2024 Episodic Other skin disorders (6 sources) Non-scarring alopecia; Translations: [Nonscarring hair loss, unspecified] 06-27-2021 Episodic Other skin disorders (2 sources) Nonscarring hair loss, unspecified; Translations: [Other alopecia] Episodic Other upper respiratory disease (6 sources) Seasonal allergy; Translations: [Other seasonal allergic rhinitis] 2019 Chronic Other upper respiratory infections (4 sources) Acute sinusitis; Translations: [Acute sinusitis, unspecified] 12-22-2021 Episodic Otitis media and related conditions (2 sources) Dysfunction of eustachian tube; Translations: [Unspecified Eustachian tube disorder, bilateral] 04-27-2023 Episodic Residual codes; unclassified (6 sources) Chill; Translations: [Chills (without fever)] 02-03-2021 Episodic Residual codes; unclassified (6 sources) Tobacco user; Translations: [Tobacco use] 07-26-2018 Episodic Residual codes; unclassified (2 sources) Tobacco use; Translations: [Tobacco use disorder] Episodic Sexually transmitted infections (not HIV or hepatitis) (20 sources) Abnormal cervical Papanicolaou smear with positive human papillomavirus deoxyribonucleic acid test; Translations: [Other abnormal Papanicolaou smear of cervix and cervical HPV] Onset: 06-18-2009 Resolved: 07-15-2009 05-09-2021 Episodic Sprains and strains (6 sources) Sprain of ankle; Translations: [Sprain of unspecified ligament of right ankle, initial encounter] 10-07-2020 Episodic Superficial injury; contusion (2 sources) Contusion of hand; Translations: [Contusion of left hand, initial encounter] 10-02-2024 Episodic Viral infection (8 sources) Genital herpes simplex; Translations: [Genital herpes, unspecified] Onset: 06-18-2009 06-18-2009 Chronic Viral infection (6 sources) Disease caused by 2019-nCoV; Translations: [COVID-19] 02-18-2021 Episodic Past or Other Problems Problem Classification Problem Date Documented Date Episodic/Chronic Abdominal pain (8 sources) Pain in female pelvis; Translations: [Pelvic and perineal pain] Onset: 11-18-2013 11-18-2013 Episodic Cancer of cervix (4 sources) Atypical squamous cells on cervical Papanicolaou smear cannot exclude high grade squamous intraepithelial lesion; Translations: [Atypical squamous cells cannot exclude high grade squamous intraepithelial lesion on cytologic smear of cervix (ASC-H)] Onset: 04-04-2024 04-04-2024 Episodic Contraceptive and procreative management (7 sources) Intrauterine contraceptive device in situ; Translations: [Presence of (intrauterine) contraceptive device] Onset: 03-08-2024 03-08-2024 Episodic Genitourinary symptoms and ill-defined conditions (1 source) Other abnormal findings in urine; Translations: [Other abnormal findings in urine] Onset: 02-18-2024 Episodic Other and delivery including normal (7 sources) Normal ; Translations: [Encounter for supervision of other normal , unspecified trimester] Onset: 09-24-2008 Resolved: 04-30-2009 04-30-2009 Episodic Unclassified (4 sources) spinal tap 12-02-2021 Comment on above: 06/2020 Results Test Name Value Interpretation Reference Range Facility Urgent Care Visit Reporton 0 12-17-2024 Urgent Care Visit Report [facility] [address], [address] [place], [place] [id number] OFFICE VISIT Date of Service: 12/17/24 MR#: [id number] Acct: [id number] Name: HITESH KRUEGER Rep #: [id number] : 1985 Provider: LORI Bunch Age/Sex: 39/F Location: [facility] [place] [facility] Status: Signed Intake Vital Signs 10/02/24 07:55 12/17/24 08:00 Height 5 ft 3 in BP 132/88 H Blood Pressure Location Rt brachial Position Sitting Respiration 15 Pulse 83 Pulse Source NIBP Temp 97.9 F Temp Source Oral Pulse Oximetry (%) 96 Oxygen Delivery Method room air Intake Visit Reasons: L shoulder pain Chief Complaint: left shoulder pain Wire Dropper Required: No Is patient in pain?: Yes Allergies latex Adverse Reaction (Verified 12/17/24 08:00) Itching Is last menstrual period known: No Post menopausal: No Patient : No Have you fallen in the past year?: No Nurse's Note: left scapula pain into left apical shoulder x 3 weeks constant. pt states the pain is the same all the time, does not go away, worsen, or weaken. denies injury states she woke like this 3 weeks ago. denies SOB, sweating, CP. denies pain in back or neck. has tried numerous otc items without relief. [facility] Medical History (Updated 12/17/24 @ 08:27 by Rahul SANDOVAL, PA) Strain of left trapezius muscle Infection of external auditory canal Contact with and (suspected) exposure to other viral communicable diseases Encounter for preventative adult health care examination Nonscarring hair loss History of papilledema Obesity (BMI 30-39.9) COVID-19 Encounter for screening for COVID-19 Right ankle pain Lab test negative for COVID-19 virus Anxiety and depression Depression Chronic headaches Bronchitis Bone fracture Anemia Seasonal allergies Surgical History spinal tap History of History of tonsillectomy Family History Mother Hypertension Migraines Social History Smoking Status: Light Smoker (<10/day) Tobacco: How many years used: 10 Electronic Cigarette Use: not used second hand exposure: No alcohol intake: former substance use type: does not use what type of physical activity do you participate in: none marilyn/taoist: None seatbelt use: always HPI HPI Chief Complaint: left shoulder pain Details: HITESH KRUEGER, is a 39 F who presents to the office today for initial evaluation at the [facility] for approximately 3-week history of left trapezius pain of unknown etiology. Patient notes having more stress in her personal life recently and wonders if this may be a contributing factor. Pain to the same is aggravated touch with range of motion at the left shoulder. No cervical or left upper extremity complaints. PMH NC. Srjjb-bgvh-muedcuhf. She has taken sqvq-pjy-getzeoy Tylenol and ibuprofen to assist with symptoms. She notes no other associated symptoms and no other alleviating or aggravating factors. ROS Const Constitutional: No other (As above) Exam Const General: cooperative, healthy appearing and no acute distress Orientation: alert and awake Neck Neck: normal visual inspection and full ROM Resp Effort Inspection: normal respiratory effort and able to speak in complete sentences Cardio Rate: regular rate Pulses: radial pulses present Skin General: no rashes or lesions noted Neuro General: patient alert and patient awake Cognition: normal cognition Speech: speech normal Extrem General: normal to inspection, full ROM (L shoulder, w/ L trapezius pain to all - tissue tension to touch) and capillary refill normal Other: Left shoulder: Negative apprehension, negative empty can and supination, negative Apley scratch and no tenderness to palpation at left ACJ Psych Appearance: grossly normal Mental Status: mental status grossly normal Mood: congruent mood Affect: normal affect Speech and Movement: speech and movement normal Attitude: cooperative Coding Level of Care Code Off vis,est,level 3 Diagnoses Strain of left trapezius muscle S46.812A Assessment and Plan Assessment and Plan (1) Strain of left trapezius muscle: Status: Acute Plan: Prednisone and Flexeril as prescribed today. Supportive measures including rest, home range of motion exercises as instructed today. Consider physical therapy or massotherapy. Follow-up with PCP in 5 to 7 days should symptoms not improve, sooner should symptoms only worsen or any other concerns develop. Patient states acknowledging understanding of the above. This note was generated with Bionost[employer]ation software. It may contain incorrect words, spelling, and punctuation that were not noted in checking the n (more content not included)... Normal [facility] Hand Min 3 Viewson 5 Hand Min 3 Views [facility] [address] [place], [place] [id number] Hand Min 3 Views MR#: [id number] Acct: [id number] Name: HITESH KRUEGER Rep #: [id number] : 1985 F 38 From: Michele Do MD PCP: LATOYA Morley Status: DEP AMB Study: Hand Min 3 Views Date of Exam: 10/02/24 Exam# [id number] Ordering Dr: Randolph Humphries PROCEDURE: HAND MIN 3 VIEWS 10/02/2024 REASON FOR EXAM: PT SMASHED MIDDLE OF HAND AND WRIST, BRUISING AND SWELLING 2-3 MC TECHNIQUE: Three views of the left hand COMPARISON: None FINDINGS: There is no fracture or dislocation. Joint spaces are maintained. Mineralization is normal. There is no visible soft tissue abnormality or radiopaque foreign body. RAD/Hand Min 3 Views IMPRESSION: No fracture or dislocation is identified. Reading Location: [facility] CC: LATOYA Tiwari; LORI Bagley Timber Framer Helper: Signed Normal [facility] Urgent Care Visit Reporton 0 10-02-2024 Urgent Care Visit Report [facility] [address], [address] [place] [address] OFFICE VISIT Date of Service: 10/02/24 MR#: [id number] Acct: [id number] Name: HITESH KRUEGER Rep #: [id number] : 1985 Provider: LORI Bagley Age/Sex: 38/F Location: [facility] Status: Signed Intake Vital Signs 04/18/23 08:12 10/02/24 08:20 Height 5 ft 3 in BP 110/72 Blood Pressure Location Rt brachial Position Sitting Respiration 16 Pulse 83 Pulse Source NIBP Temp 98.8 F Temp Source Oral Pulse Oximetry (%) 95 Oxygen Delivery Method room air Intake Visit Reasons: L HAND PAIN/CRUSH INJURY Chief Complaint: left hand/wrist injury Wire Dropper Required: No Is patient in pain?: Yes Allergies latex Adverse Reaction (Verified 10/02/24 08:21) Itching Medications ???Medication ???Instructions ???Recorded ???Confirmed ???Type ergocalciferol (vitamin D2) 1,250 50,000 unit PO QWEEK #8 caps 06/1404/27/23 Rx mcg (50,000 unit) capsule semaglutide (weight loss) 0.5 0.5 mg (0.5 mL) subcut QWEEK #2 mL 11/15/22 04/27/23 Rx mg/0.5 mL subcutaneous pen injector (Wegovy) sumatriptan succinate 100 mg tablet 100 mg .Route .COMPLEX PRN 12/11/0304/27/23 Rx migraine headache #9 tabs triamcinolone acetonide 55 mcg 2 spray intranasal DAILY #16.9 mL 04/27/23 04/27/23 Rx nasal spray aerosol (Nasacort) prednisone 10 mg tablet 10 mg PO DIRECTED 12 days #28 0 10/02/24 10/02/24 Rx tabs Is last menstrual period known: No Post menopausal: No Patient : No Have you fallen in the past year?: Yes Nurse's Note: left hand/wrist vs doorframe yesterday at home. c/o pain to both areas, decreased ROM d/t pain. denies additional injuries. [facility] Medical History (Updated 10/02/24 @ 10:44 by LORI Navarrete) Infection of external auditory canal Contact with and (suspected) exposure to other viral communicable diseases Encounter for preventative adult health care examination Nonscarring hair loss History of papilledema Obesity (BMI 30-39.9) COVID-19 Encounter for screening for COVID-19 Right ankle pain Lab test negative for COVID-19 virus Anxiety and depression Depression Chronic headaches Bronchitis Bone fracture Anemia Seasonal allergies Surgical History spinal tap History of History of tonsillectomy Family History Mother Hypertension Migraines Social History Smoking Status: Light Smoker (<10/day) Tobacco: How many years used: 10 Electronic Cigarette Use: not used second hand exposure: No alcohol intake: former substance use type: does not use what type of physical activity do you participate in: none marilyn/taoist: None seatbelt use: always HPI HPI Chief Complaint: left hand/wrist injury Details: HITESH KRUEGER, is a 38 F who presents to the office today for complaint of left hand pain. Patient states she was carrying a box and ran her hand into the door frame. She has had pain in her left hand since then. She denies numbness, tingling or loss of range of motion. No previous injuries to same. No other associated symptoms or alleviating/aggravating factors. ROS Const Constitutional: No other (As above) Exam Const General: cooperative and healthy appearing Skin General: no rashes or lesions noted Neuro General: patient alert Psych Appearance: grossly normal Mental Status: mental status grossly normal Coding Level of Care Code Off vis,est,level 4 Diagnoses Contusion of left hand including fingers S60.222A; S60.00XA Assessment and Plan Assessment and Plan (1) Contusion of left hand including fingers: Status: Acute Orders: Orders Wrist min 3 Views Today S69.90XA - Unspecified injury of unspecified wrist, hand and finger(s), initial encounter Hand Min 3 Views Today S69.90XA - Unspecified injury of unspecified wrist, hand and finger(s), initial encounter Medications: New prednisone Take 4 tabs once daily days 1-3 3 tabs once daily days 4-6 2 tabs once daily days 7-9 and 1 tab once daily days 10-12. 10 mg PO DIRECTED 12 days 28 tabs 0RF L25.9 - Unspecified contact dermatitis, unspecified cause Plan Three-view x-ray of the left hand and wrist read by myself find no acute osseous abnormalities, awaiting radiology interpretation at time of patient discharge. Prednisone taper as prescribed today. Patient placed in a wrist splint and advised to follow-up with orthopedics in 10 to 14 days if no better or sooner if worse. Patient advised to use ice 3 times daily for 20 minutes. Advised to use ibuprofen or Tylenol as needed for pain unless contraindicated. Patient (more content not included)... Normal [facility] Wrist min 3 Viewson 10-03-19 25 Wrist min 3 Views [facility] [address] [place] [address] Wrist min 3 Views MR#: [id number] Acct: [id number] Name: HITESH KRUEGER Rep #: [id number] : 1985 F 38 From: Michele Do MD PCP: Reginaldo Tiwari NP-C Status: DEP AMB Study: Wrist min 3 Views Date of Exam: 10/02/24 Exam# [id number] Ordering Dr: Randolph Humphries PROCEDURE: WRIST MIN 3 VIEWS 10/02/2024 REASON FOR EXAM: PT SMASHED MIDDLE OF HAND AND WRIST, BRUISING AND SWELLING 2-3 MC TECHNIQUE: Three views of the left breast COMPARISON: None FINDINGS: There is no fracture or dislocation identified. Mineralization is normal. The joint spaces are maintained. There is no visible soft tissue abnormality or radiopaque foreign body. RAD/Wrist min 3 Views IMPRESSION: No fracture or dislocation is identified. Reading Location: [facility] CC: CYLINDER MACHINE OPERATOR-C Reginaldo Tiwari; LORI Bagley Timber Framer Helper: Signed [facility] Urgent Care Visit Reporton 1 06-08-2023 Urgent Care Visit Report [facility] [address], [address] [place] [address] OFFICE VISIT Date of Service: 04/08/24 MR#: [id number] Acct: [id number] Name: HITESH KRUEGER Rep #: [id number] : 1985 Provider: LORI Bunch Age/Sex: 38/F Location: [facility] [place] [facility] Status: Signed Intake Vital Signs 04/18/23 08:12 04/08/24 07:52 Height 5 ft 3 in BP 120/70 Blood Pressure Location Lt brachial Position Sitting Respiration 14 Pulse 81 Pulse Source NIBP Temp 99.2 F H Temp Source Oral Pulse Oximetry (%) 98 Oxygen Delivery Method room air Intake Visit Reasons: L EAR COMPLAINT Chief Complaint: Left ear complaint and congestion Wire Dropper Required: No Is patient in pain?: No Allergies latex Adverse Reaction (Verified 03/13/24 08:33) Itching Is last menstrual period known: No Post menopausal: No Patient : No Have you fallen in the past year?: No Nurse's Note: patient is having left ear complaint, states feels like water is in her ear, also has congestion x2 days. [facility] Medical History (Updated 04/08/24 @ 07:54 by Rahul SANDOVAL, PA) Infection of external auditory canal Contact with and (suspected) exposure to other viral communicable diseases Encounter for preventative adult health care examination Nonscarring hair loss History of papilledema Obesity (BMI 30-39.9) COVID-19 Encounter for screening for COVID-19 Right ankle pain Lab test negative for COVID-19 virus Anxiety and depression Depression Chronic headaches Bronchitis Bone fracture Anemia Seasonal allergies Surgical History spinal tap History of History of tonsillectomy Family History Mother Hypertension Migraines Social History Smoking Status: Light Smoker (<10/day) Tobacco: How many years used: 10 Electronic Cigarette Use: not used second hand exposure: No alcohol intake: former substance use type: does not use what type of physical activity do you participate in: none marilyn/taoist: None seatbelt use: always HPI HPI Chief Complaint: Left ear complaint and congestion Details: HITESH KRUEGER, is a 38 F who presents to the office today for approximately 48-hour history of progressively worsening left ear canal pain, after admitting cleaning ears with Q-tips. No hearing changes nor lightheadedness/dizzines s/nausea/vomiting. No complaints of fever, chills, sweats. No ajaq-ory-zbfbstu products taken to assist. No other associated symptoms and no other alleviating/aggravating factors. ROS Const Constitutional: No other (As above) Exam Const General: cooperative, healthy appearing and no acute distress Orientation: alert and awake [facility] Head: normal to inspection Ears: hearing grossly normal bilaterally, external ears normal, TM's normal bilaterally, EAC's normal (right only) and EAC abnormal (Left EAC erythema/swelling w/ eschar) Nose: external nose normal, nares normal, septum normal and no nasal discharge Face and sinus: normal facial exam, sinuses nontender and face symmetric Mouth: oral mucosae normal, lip normal, tongue normal, oropharynx normal and moist mucous membranes Throat: posterior oropharynx normal, tonsils normal, uvula midline and no postnasal drainage Eyes General: appearance normal, both eyes and all related structures Neck Neck: normal visual inspection, no lymphadenopathy, no meningeal signs and supple Chest Chest palpation inspection: normal inspection of the chest Resp Effort Inspection: normal respiratory effort and able to speak in complete sentences Auscultation: Bilateral: Clear to Auscultation Cardio Palpation: normal PMI Rate: regular rate Rhythm: regular rhythm Heart Sounds: S1 normal, S2 normal, no gallops, no murmurs and no rubs Pulses: radial pulses present GI Inspection: normal to inspection Skin General: no rashes or lesions noted Neuro General: patient alert and patient awake Cognition: normal cognition Speech: speech normal Extrem General: normal to inspection Psych Appearance: grossly normal Mental Status: mental status grossly normal Mood: congruent mood Affect: normal affect Speech and Movement: speech and movement normal Attitude: cooperative Coding Level of Care Code Off vis,est,level 3 Diagnoses Infection of external auditory canal H60.399 Assessment and Plan Assessment and Plan (1) Infection of external auditory canal: Status: Acute Plan: Cephalexin as prescribed today. Reeducated on appropriate ear hygiene care. Supportive measures as instructed today. Follow-up with PCP in 3 to 5 days should symptoms not improve, sooner should symptoms worsen or any other (more content not included)... Normal [facility] 04-04-2024 [facility] Telephone (OBGYWM) -------- HITESH KRUEGER ([id number]) 1985 F Date Time Provider Department 04/04/24 PEACE KIM OBGYWM During your visit today, we recorded the following information about you: Mandeep Angeles RN 04/04/2024 2:39 PM Signed ----- Message from Peace Kim MD sent at 04/04/2024 1:21 PM EST ----- Please schedule colp. Mychart message sent. Mandeep Angeles RN 04/04/2024 2:40 PM Signed Left message for patient to call office or view mychart message and call office to get appt scheduled. PRAMOD Gomez Tara, RN 04/08/2024 4:23 PM Signed Left message for patient reminding her [employer] Grouph[employer] message was sent to her on 04/04/24 and to call office to get appointment scheduled. Cutefundhart message was sent to Pt on 04/04/24 and Pt viewed on 04/04/24. PRAMOD Gomez Trisha, RN 04/29/2024 10:09 AM Signed Spoke to patient. She is aware of needing colposcopy done. She wants to wait to schedule until after the holidays. She will call back beginning of May to schedule then. Farideh Rubin RN Allergies As of Date: 04/04/2024 Noted Allergy Reaction ADHESIVE TAPE (ROSINS) 05/23/2008 2 - Rash 7 - Swelling 9 - Itching Comments: BANDAIDS INDERAL (PROPRANOLOL) 11/19/2020 11 - Vomiting LATEX 11/09/2011 2 - Rash Date Reviewed: 03/26/2024 Reviewed by: Malvin Hussein MD - Fully Assessed Reason for Visit: Results [95] Prescriptions as of 04/29/2024 - WEGOVY 2.4 mg/0.75 mL pen injector Inject 2.4 mg subcutaneously one time a week. - VITAMIN D2 1,250 mcg (50,000 unit) capsule Take 1 capsule by mouth one time a week. - Amphetamine-Dextroamphet amine (ADDERALL) 30 mg tablet Take 30 mg by mouth once daily. - busPIRone (BUSPAR) 5 mg tablet Take by mouth. - DUREZOL 0.05 % - SUMAtriptan (IMITREX) 100 mg tablet take 1 (ONE) tab BY MOUTH at onset of headache; if no relief, may repeat 1 (ONE) tab after at least 2 (TWO) HOURS; max = 2 (TWO) tabs/24 GWENDOLYN - SUMAtriptan (IMITREX) 50 mg tablet Take one tablet every two hours as needed for headache. Max 2 tablets per day. - topiramate (TOPAMAX) 100 mg tablet Take 100 mg by mouth twice daily. - ibuprofen (MOTRIN) 600 mg tablet Take 1 tablet by mouth every 6 hours as needed. - buPROPion XL (WELLBUTRIN XL) 150 mg 24 hr tablet Take 150 mg by mouth once daily. Problem List As Of Date 04/04/2024 Noted Resolved Previous Delivery, Antepartum Conditio*09/24/2008 04/30/2009 Supervision of Other Normal [Z34.80] 09/24/2008 04/30/2009 Gonorrhea [A54.9] 06/18/2009 07/15/2009 Herpes Genital 06/18/2009 Moderate dysplasia of cervix [N87.1] Abnormal Pap smear and cervical HPV (human mitch* Amenorrhea [N91.2] 10/04/2012 Pelvic pain in female [R10.2] 11/18/2013 IUD (intrauterine device) in place [Z97.5] 03/08/2024 Cervical high risk HPV (human papillomavirus) t*04/04/2024 Atypical squamous cells cannot exclude high gra*04/04/2024 Encounter Status:Closed by MANDEEP ANGELES on 04/08/24 [facility] CNOVon 03-26-2024 CNOV Office Visit (OBGYWM ) -------- HITESH KRUEGER ([id number]) 1985 F Date Time Provider Department 03/26/24 9:50 AM MALVIN HUSSEIN OBGYWM During your visit today, we recorded the following information about you: Blood pressure 124/72 Malvin Hussein MD 04/08/2024 12:58 PM Addendum Travel Clerk offered: Patient accepts, visit chaperoned by Michelle whitley. Hitesh Krueger is a 38 year old female who presents for paponly with hx of abnormal pap.. 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 Vitamin D deficiency PAST SURGICAL HISTORY Procedure Laterality Date DELIVERY ONLY , low cervical X 2 CONIZATION CERVIX W/WO DANDC RPR ELTRD EXC 2007 LEEP-Cervix with only mild dysplasia found S LASER CO2 03/28 KELLEN III TONSILLECTOMY PRIMARY/SECONDARY Tonsillectomy FAMILY HISTORY Problem Relation Age of Onset Heart Mother Hypertension Mother Arthritis Father Emphysema Paternal Grandmother Social History Tobacco Use Smoking status: Former Current packs/day: 0.00 Average packs/day: 0.5 packs/day for 4.0 years (2.0 ttl pk-yrs) Types: Cigarettes Start date: 04/22/2004 Quit date: 04/22/2008 Years since quittin.9 Smokeless tobacco: Never Vaping Use Vaping status: Never Used Substance Use Topics Alcohol use: No Drug use: Not Currently Current Outpatient Medications Medication Sig WEGOVY 2.4 mg/0.75 mL pen injector Inject 2.4 mg subcutaneously one time a week. VITAMIN D2 1,250 mcg (50,000 unit) capsule Take 1 capsule by mouth one time a week. Amphetamine-Dextroamphet amine (ADDERALL) 30 mg tablet Take 30 mg by mouth once daily. busPIRone (BUSPAR) 5 mg tablet Take by mouth. (Patient not taking: Reported on 02/27/2024) DUREZOL 0.05 % (Patient not taking: Reported on 02/27/2024) SUMAtriptan (IMITREX) 100 mg tablet take 1 (ONE) tab BY MOUTH at onset of headache; if no relief, may repeat 1 (ONE) tab after at least 2 (TWO) HOURS; max = 2 (TWO) tabs/24 GWENDOLYN (Patient not taking: Reported on 02/27/2024) SUMAtriptan (IMITREX) 50 mg tablet Take one tablet every two hours as needed for headache. Max 2 tablets per day. (Patient not taking: Reported on 02/27/2024) topiramate (TOPAMAX) 100 mg tablet Take 100 mg by mouth twice daily. (Patient not taking: Reported on 02/27/2024) ibuprofen (MOTRIN) 600 mg tablet Take 1 tablet by mouth every 6 hours as needed. (Patient taking differently: Take 600 mg by mouth every 6 hours.) buPROPion XL (WELLBUTRIN XL) 150 mg 24 hr tablet Take 150 mg by mouth once daily. (Patient not taking: Reported on 02/27/2024) No current facility-administered medications for this visit. Allergies As of Date: 03/26/2024 Allergen Noted Reaction ADHESIVE TAPE (ROSINS) 05/23/2008 Rash, Swelling, and Itching INDERAL [PROPRANOLOL] 11/19/2020 Vomiting LATEX 11/09/2011 Rash Fully Assessed 03/10/2024 REVIEW OF SYSTEMS Abdomen: No bloating, early satiety, indigestion, or increased flatulence. No abdominal pain, nausea, vomiting, diarrhea, or constipation. Bladder: No dysuria, gross hematuria, urinary frequency, urinary urgency, or incontinence. Breast: No breast lumps, nipple d/c, overlying skin changes, redness or skin retraction. Expanded ROS: N/A Allergies and current medication updated:Yes SENSITIVE EXAM: The sensitive examination was discussed with the Patient or Patient's Authorized Vice President Education. As applicable, any other physician, advance practice provider, medical student, or other health professional student that will be observing or involved in the sensitive examination for educational or training purposes was discussed with the Patient or Authorized Vice President Education. The Patient or Authorized Vice President Education has agreed to proceed with the sensitive examination. (Sensitive examination includes inspection and/or palpation of the breasts, pelvis, prostate and anorectal regions). EXAM: LMP 02/10/2024 GENERAL: pleasant, female in no apparent distress PELVIC: external genitalia normal, normal Bartholin's glands, urethra, [place]'s glands, no vulvar lesions, no cervical lesions, good vaginal support, physiologic discharge present, normal appearing perineal body and perianal region, paraguard string in place BIMANUAL: uterus normal size, shape and consistency, no adnexal masses, non-tender, and no ce (more content not included)... Normal [facility] PAP TESTon 03-26-2024 ADEQUACY Satisfactory for interpretation. Normal [facility] Comment on above: Order Comment: Speci men Type: FLUID SPECIMEN Ordering Facility: [facility] Address: [address] [place] [address] Performed By: #### L [id number] #### [facility] CLIA [id number] [address] [place] [address] [place] CASE REPORT Normal [facility] Comment on above: Order Comment: Speci men Type: FLUID SPECIMEN Ordering Facility: [facility] Address: [address] [place] [address] Result Comment: Gyne cologic Cytology Report Case: [id number] Authorizing Provider: Malvin Hussein MD Collected: 03/26/2024 11:58 AM Ordering Location: OB/Gynecology Received: 03/26/2024 03:39 PM First Screen: Haylie Velez, CT, ASCP Pathologist: Yue Mckeon MD Specimen: Pap Test, ThinPrep, Cervix Performed By: #### L [id number] #### [facility] CLIA [id number] [address] [place] [address] [place] CLINICAL HISTORY, CYTOLOGY, ELECTRO WINNING OPERATOR Positive Normal [facility] Comment on above: Order Comment: Speci men Type: FLUID SPECIMEN Ordering Facility: [facility] Address: [address] [place] [address] Result Comment: Prev ious LEEP Intra Uterine Device hpv 16 positive 2007 Performed By: #### L [id number] #### [facility] CLIA [id number] [address] [place] [address] [place] DIAGNOSIS COMMENT Suggest colposcopy/biopsy as clinically indicated. Results from the ASCUS/LSIL triage study found that interpretations of ASC-H were associated with a higher risk of underlying HSIL (STACEY 2 or worse; 30-40%). Normal [facility] Comment on above: Order Comment: Speci men Type: FLUID SPECIMEN Ordering Facility: [facility] Address: [address] [place] [address] Performed By: #### L [id number] #### [facility] CLIA [id number] [address] [place] [address] [place] FINAL PERFORMING LAB Normal [facility] Comment on above: Order Comment: Speci men Type: FLUID SPECIMEN Ordering Facility: [facility] Address: [address] [place] [address] Result Comment: Tech nical component, machine taper screening performed at [facility], [address] [place], [place] [id number] CLIA# [id number] Diagnostic interpretation performed at [facility], [address] [place], [place] [address] CLIA# [id number] Seed Sales Manager: Sherif Kern M.D. Performed By: #### L [id number] #### [facility] CLIA [id number] [address] [place] [address] [place] INTERPRETATION, CYTOLOGY, ELECTRO WINNING OPERATOR Abnormal [facility] Comment on above: Order Comment: Speci men Type: FLUID SPECIMEN Ordering Facility: [facility] Address: [address] [place] [address] Result Comment: Atyp ical squamous cells cannot exclude high grade squamous intraepithelial lesion (ASC-H); see comment. Performed By: #### L [id number] #### [facility] CLIA [id number] [address] [place] [address] [place] LMP 02/10/2024 Normal [facility] Comment on above: Order Comment: Speci men Type: FLUID SPECIMEN Ordering Facility: [facility] Address: [address] [place] [address] Performed By: #### L [id number] #### [facility] CLIA [id number] [address] [place] [address] [place] PAP DISCLAIMER COMMENT The Pap Smear is a screening test for cervical cancer. False negative results occur with all screening tests, emphasizing the need for rescreening at recommended intervals, and clinical correlation. Normal [facility] Comment on above: Order Comment: Speci men Type: FLUID SPECIMEN Ordering Facility: [facility] Address: [address] [place] [address] Performed By: #### L [id number] #### [facility] CLIA [id number] [address] [place] [address] [place] PAP GENERAL CATEGORIZATION Epithelial Cell Abnormality Normal [facility] Comment on above: Order Comment: Speci men Type: FLUID SPECIMEN Ordering Facility: [facility] Address: [address] [place] [address] Performed By: #### L [id number] #### [facility] CLIA [id number] [address] [place] [address] [place] PAP COAL CHUTE WORKER COMMENT This specimen has be en analyzed by the ThinPrep Imaging System, an automated imaging and review system, which assists the laboratory in evaluating cells on ThinPrep Pap tests. Following automated imaging, selected bethea from every slide are reviewed by a machine taper. Normal [facility] Comment on above: Order Comment: Speci men Type: FLUID SPECIMEN Ordering Facility: [facility] Address: [address] [place] [address] Performed By: #### L [id number] #### [facility] CLIA [id number] [address] [place] [address] [place] Urgent Care Visit Reporton 1 Urgent Care Visit Report [facility] [address], [address] [place] [address] OFFICE VISIT Date of Service: 03/13/24 MR#: [id number] Acct: [id number] Name: HITESH KRUEGER Rep #: [id number] : 1985 Provider: LORI Bagley Age/Sex: 38/F Location: [facility] Status: Signed Intake Vital Signs 04/18/23 08:12 03/13/24 08:32 Height 5 ft 3 in BP 130/76 H Blood Pressure Location Lt brachial Position Sitting Respiration 16 Pulse 86 Pulse Source NIBP Temp 99.6 F H Temp Source Oral Pulse Oximetry (%) 98 Oxygen Delivery Method room air Intake Visit Reasons: SORE THROAT Chief Complaint: ST, runny nose, MEJIA, congest, cough Wire Dropper Required: No Is patient in pain?: No Allergies latex Adverse Reaction (Verified 03/13/24 08:33) Itching Is last menstrual period known: No Post menopausal: No Patient : No Have you fallen in the past year?: No Nurse's Note: ST, runny nose, MEJIA, congest, cough x 1 week. denies fevers. [facility] Medical History Anemia Anxiety and depression Bone fracture Bronchitis Chronic headaches Contact with and (suspected) exposure to other viral communicable diseases COVID-19 Depression Encounter for preventative adult health care examination Encounter for screening for COVID-19 History of papilledema Lab test negative for COVID-19 virus Nonscarring hair loss Obesity (BMI 30-39.9) Right ankle pain Seasonal allergies Surgical History History of History of tonsillectomy spinal tap Family History Mother Hypertension Migraines Social History Smoking Status: Light Smoker (<10/day) Tobacco: How many years used: 10 Electronic Cigarette Use: not used second hand exposure: No alcohol intake: former substance use type: does not use what type of physical activity do you participate in: none marilyn/taoist: None seatbelt use: always HPI HPI Chief Complaint: ST, runny nose, MEJAI, congest, cough Details: HITESH KRUEGER, is a 38 F who presents to the office today for complaint of sore throat, runny nose, headache and congestion as well as cough for the past week. Patient denies fever, chills, sweats. No nausea, vomiting and diarrhea. No hemoptysis, shortness of breath or difficulty breathing. No loss of taste or smell. No other associated symptoms or alleviating/aggravating factors. ROS Const Constitutional: No other (6 system ROS completed with pertinent findings in the HPI otherwise normal.) Exam Const General: cooperative and well developed [facility] Head: normal to inspection and atraumatic Ears: hearing grossly normal bilaterally Nose: nasal discharge clear Face and sinus: normal facial exam Mouth: oral mucosae normal Throat: abnormal tonsil bilaterally hypertrophy 1+ Resp Effort Inspection: normal respiratory effort and no audible wheezes Auscultation: Bilateral: Clear to Auscultation Cardio Palpation: normal PMI Rate: regular rate Rhythm: regular rhythm Neuro General: patient alert and CN's II-XI intact bilaterally Psych Appearance: grossly normal Mental Status: mental status grossly normal Results POC YOUNG Covid FluAB PCR POC Young Covid PCR Not Detected Last Edit by Vania Nunez on 03/13/24 08:44 POC YOUNG FLU NOT DETECTED FLU A B Last Edit by Vania Nunez on 03/13/24 08:44 Coding Level of Care Code Off vis,est,level 3 Diagnoses Acute bronchitis J20.9 Contact with or suspected exposure to other viral communicable disease Z20.828 Assessment and Plan Assessment and Plan (1) Acute bronchitis: Status: Acute (2) Contact with or suspected exposure to other viral communicable disease: Status: Acute Orders: Orders POC Young Covid FLUAB PCR Today Medications: New azithromycin take 500 mg today (day 1), then 250 mg for 4 days (days 2-5) PO 6 tabs 0RF Plan Azithromycin as prescribed today. Patient tested negative for COVID and influenza in the office today. Encouraged to get plenty of rest, drink lots of clear liquids, and use Tylenol or Ibuprofen (unless contraindicated) for fever and comfort. Patient also educated on other symptomatic management techniques. To be seen in 7-10 days if no improvement; sooner if worsening of symptoms. Patient advised of potential red flags and when appropriate to report to the ED. Patient verbalized understanding and agreement with all the above. Clinical Quality Measures Falls Risk Screening/Assistive Devices Have you fallen in the past year?: No 03/13/241753 Date Randolph Multani (more content not included)... Normal [facility] CNOVon 03-10-2024 CNOV Office Visit (OBGYWM ) -------- HITESH KRUEGER ([id number]) 1985 F Date Time Provider Department 03/10/24 8:50 AM MALVIN HUSSEIN OBGYWVu During your visit today, we recorded the following information about you: Blood pressure Weight 112/62 83.5 kg Malvin Hussein MD 03/14/2024 10:55 AM Signed Travel Clerk offered: Patient accepts, visit chaperoned by Michelle Whitley. Hitesh Krueger is a 38 year old female who presents for problem visit to review ultrasound and discuss debris in urine on ultrasound.. HPI: HMB resolved, Hx of HGSIL/Leep and recent PAP and HPV returned unsatisfactory for evaluation and + High risk HPV.. 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 Vitamin D deficiency PAST SURGICAL HISTORY Procedure Laterality Date DELIVERY ONLY , low cervical X 2 CONIZATION CERVIX W/WO DANDC RPR ELTRD EXC 2007 LEEP-Cervix with only mild dysplasia found S LASER CO2 03/28 KELLEN III TONSILLECTOMY PRIMARY/SECONDARY Tonsillectomy FAMILY HISTORY Problem Relation Age of Onset Heart Mother Hypertension Mother Arthritis Father Emphysema Paternal Grandmother Social History Tobacco Use Smoking status: Former Current packs/day: 0.00 Average packs/day: 0.5 packs/day for 4.0 years (2.0 ttl pk-yrs) Types: Cigarettes Start date: 04/22/2004 Quit date: 04/22/2008 Years since quittin.8 Smokeless tobacco: Never Vaping Use Vaping status: Never Used Substance Use Topics Alcohol use: No Drug use: Not Currently Current Outpatient Medications Medication Sig WEGOVY 2.4 mg/0.75 mL pen injector Inject 2.4 mg subcutaneously one time a week. VITAMIN D2 1,250 mcg (50,000 unit) capsule Take 1 capsule by mouth one time a week. Amphetamine-Dextroamphet amine (ADDERALL) 30 mg tablet Take 30 mg by mouth once daily. busPIRone (BUSPAR) 5 mg tablet Take by mouth. (Patient not taking: Reported on 02/27/2024) DUREZOL 0.05 % (Patient not taking: Reported on 02/27/2024) SUMAtriptan (IMITREX) 100 mg tablet take 1 (ONE) tab BY MOUTH at onset of headache; if no relief, may repeat 1 (ONE) tab after at least 2 (TWO) HOURS; max = 2 (TWO) tabs/24 GWENDOLYN (Patient not taking: Reported on 02/27/2024) SUMAtriptan (IMITREX) 50 mg tablet Take one tablet every two hours as needed for headache. Max 2 tablets per day. (Patient not taking: Reported on 02/27/2024) topiramate (TOPAMAX) 100 mg tablet Take 100 mg by mouth twice daily. (Patient not taking: Reported on 02/27/2024) ibuprofen (MOTRIN) 600 mg tablet Take 1 tablet by mouth every 6 hours as needed. (Patient taking differently: Take 600 mg by mouth every 6 hours.) buPROPion XL (WELLBUTRIN XL) 150 mg 24 hr tablet Take 150 mg by mouth once daily. (Patient not taking: Reported on 02/27/2024) No current facility-administered medications for this visit. Allergies As of Date: 03/10/2024 Allergen Noted Reaction ADHESIVE TAPE (ROSINS) 05/23/2008 Rash, Swelling, and Itching INDERAL [PROPRANOLOL] 11/19/2020 Vomiting LATEX 11/09/2011 Rash Fully Assessed 11/19/2020 REVIEW OF SYSTEMS Abdomen: No bloating, early satiety, indigestion, or increased flatulence. No abdominal pain, nausea, vomiting, diarrhea, or constipation. Bladder: No dysuria, gross hematuria, urinary frequency, urinary urgency, or incontinence. Breast: No breast lumps, nipple d/c, overlying skin changes, redness or skin retraction. Expanded ROS: N/A Allergies and current medication updated:Yes SENSITIVE EXAM: Sensitive exam not performed. EXAM: LMP 02/10/2024 GENERAL: pleasant, female in no apparent distress deferred / declined ASSESSMENT AND PLAN: Assessment AND Plan Encounter for screening for malignant neoplasm of cervix Rescheduled for pap UA submitted interested in HPV vaccine HPV and abnormal pap discussed at length. ftft> 30 m Orders: URINALYSIS, WITH MICROSCOPIC Malvin Hussein MD Referring Provider: MALVIN HUSSEIN [[id number]] Allergies As of Date: 03/10/2024 Noted Allergy Reaction ADHESIVE TAPE (ROSINS) 05/23/2008 2 - Rash 7 - Swelling 9 - Itching Comments: BANDAIDS INDERAL (PROPRANOLOL) 11/19/2020 11 - Vomiting LATEX 11/09/2011 2 - Rash Date Reviewed: 03/10/2024 Reviewed by: Laya Whitley LPN - Fully Assessed Reason for Visit: Follow Up [171] Primary Visit Diagnosis:Abnormal ultrasound of bladder (more content not included)... Normal [facility] Urinalysis complete panel (U )on 03-10-2024 Bacteria uL uL High Negative uL [facility] Bilirubin Ql (U) Negative Negative [facility] Clarity (Unsp spec) Clear Clear [facility] Color (U) Yellow Yellow [facility] Epithelial cells LM.HPF (Urine sed) [#/Area] Moderate /HPF [facility] Glucose Test strip (U) [Mass/Vol] Negative Negative [facility] Hemoglobin Ql (U) Negative Negative [facility] Hyaline casts (Urine sed) [#/Area] 0 /[LPF] 0 /LPF [facility] Interpretation and review of laboratory results Abnormal [facility] Ketones Ql (U) Trace Abnormal Negative [facility] Leukocyte esterase Test strip Ql (U) Negative Negative [facility] Nitrite Ql (U) Positive Abnormal Negative [facility] pH (U) 6.5 [pH] NINF - 8.5 [facility] Protein (U) [Mass/Vol] Trace Abnormal Negative [facility] RBC LM.HPF (Urine sed) [#/Area] 0-2 /HPF 0-2 /HPF [facility] Specific gravity (U) [Rel density] 1.027 1.005 - 1.030 [facility] Urobilinogen Ql (U) 0.2 EU/dL 0.2-1.0 EU/dL [facility] WBC LM.HPF (Urine sed) [#/Area] 0-5 /HPF 0-5 /HPF [facility] This test was develo ped and its performance characteristics determined by [facility]'s [facility] Pathology and Laboratory Medicine [place] ([facility]). It has not been cleared or approved by the FDA. [facility] is regulated under CLIA as qualified to perform high-complexity testing. This test is used for clinical purposes. It should not be regarded as investigational or for research. [facility] BACTERIA UL >9821 High Negative [facility] Comment on above: Order Comment: Speci men Type: URINE SPECIMEN Ordering Facility: [facility] Address: [address] [place] [address] Performed By: #### 2 4356-8 #### [facility] CLIA [id number] [address] [place] [address] [place] Bilirubin Ql (U) Negative Normal Negative [facility] Comment on above: Order Comment: Speci men Type: URINE SPECIMEN Ordering Facility: [facility] Address: [address] [place] [address] Performed By: #### 2 4356-8 #### [facility] CLIA [id number] [address] [place] [address] [place] Clarity (Unsp spec) Clear Normal Clear [facility] Comment on above: Order Comment: Speci men Type: URINE SPECIMEN Ordering Facility: [facility] Address: [address] [place] [address] Performed By: #### 2 4356-8 #### [facility] CLIA [id number] [address] [place] [address] [place] Color (U) Yellow Normal Yellow [facility] Comment on above: Order Comment: Speci men Type: URINE SPECIMEN Ordering Facility: [facility] Address: [address] [place] [address] Performed By: #### 2 4356-8 #### [facility] CLIA [id number] [address] [place] [address] [place] Epithelial cells LM.HPF (Urine sed) [#/Area] Moderate Normal [facility] Comment on above: Order Comment: Speci men Type: URINE SPECIMEN Ordering Facility: [facility] Address: [address] [place] [address] Performed By: #### 2 4356-8 #### [facility] CLIA [id number] [address] [place] [address] [place] Glucose Test strip (U) [Mass/Vol] Negative Normal Negative [facility] Comment on above: Order Comment: Speci men Type: URINE SPECIMEN Ordering Facility: [facility] Address: [address] [place] [address] Performed By: #### 2 4356-8 #### [facility] CLIA [id number] [address] [place] [address] [place] Hemoglobin Ql (U) Negative Normal Negative [facility] Comment on above: Order Comment: Speci men Type: URINE SPECIMEN Ordering Facility: [facility] Address: [address] [place] [address] Performed By: #### 2 4356-8 #### [facility] CLIA [id number] [address] [place] [address] [place] Hyaline casts (Urine sed) [#/Area] 0 /[LPF] Normal 0 /LPF [facility] Comment on above: Order Comment: Speci men Type: URINE SPECIMEN Ordering Facility: [facility] Address: [address] [place] [address] Performed By: #### 2 4356-8 #### [facility] CLIA [id number] [address] [place] [address] [place] Ketones Ql (U) Trace Abnormal Negative [facility] Comment on above: Order Comment: Speci men Type: URINE SPECIMEN Ordering Facility: [facility] Address: [address] [place] [address] Performed By: #### 2 4356-8 #### [facility] CLIA [id number] [address] [place] [address] [place] Leukocyte esterase Test strip Ql (U) Negative Normal Negative [facility] Comment on above: Order Comment: Speci men Type: URINE SPECIMEN Ordering Facility: [facility] Address: [address] [place] [address] Performed By: #### 2 4356-8 #### [facility] CLIA [id number] [address] [place] [address] [place] Nitrite Ql (U) Positive Abnormal Negative [facility] Comment on above: Order Comment: Speci men Type: URINE SPECIMEN Ordering Facility: [facility] Address: [address] [place] [address] Performed By: #### 2 4356-8 #### [facility] CLIA [id number] [address] [place] [address] [place] pH (U) 6.5 [pH] Normal <8.5 [facility] Comment on above: Order Comment: Speci men Type: URINE SPECIMEN Ordering Facility: [facility] Address: [address] [place] [address] Performed By: #### 2 4356-8 #### [facility] CLIA [id number] [address] [place] [address] [place] Protein (U) [Mass/Vol] Trace Abnormal Negative [facility] Comment on above: Order Comment: Speci men Type: URINE SPECIMEN Ordering Facility: [facility] Address: [address] [place] [address] Performed By: #### 2 4356-8 #### [facility] CLIA [id number] [address] [place] [address] [place] RBC LM.HPF (Urine sed) [#/Area] 0-2 /HPF Normal 0-2 /HPF [facility] Comment on above: Order Comment: Speci men Type: URINE SPECIMEN Ordering Facility: [facility] Address: [address] [place] [address] Performed By: #### 2 4356-8 #### [facility] CLIA [id number] [address] [place] [address] [place] Specific gravity (U) [Rel density] 1.027 Normal 1.005-1.030 [facility] Comment on above: Order Comment: Speci men Type: URINE SPECIMEN Ordering Facility: [facility] Address: [address] [place] [address] Performed By: #### 2 4356-8 #### [facility] CLIA [id number] [address] [place] [address] [place] Urobilinogen Ql (U) 0.2 EU/dL Normal 0.2-1.0 EU/dL [facility] Comment on above: Order Comment: Speci men Type: URINE SPECIMEN Ordering Facility: [facility] Address: [address] [place] [address] Performed By: #### 2 4356-8 #### [facility] CLIA [id number] [address] [place] [address] [place] WBC LM.HPF (Urine sed) [#/Area] 0-5 /HPF Normal 0-5 /HPF [facility] Comment on above: Order Comment: Speci men Type: URINE SPECIMEN Ordering Facility: [facility] Address: [address] [place] [address] Performed By: #### 2 4356-8 #### [facility] CLIA [id number] [address] [place] [address] [place] US Pelvison 03-08-2024 Indication Abnormal uterine bleeding Impression 3D rendering of the uterus confirms the proper location of the IUD within the endometrial cavity. The uterus is anteverted and measures 84 mm x 37 mm x 55 mm. The endometrial thickness is 7.3 mm. The right ovary measures 22 mm x 10 mm x 16 mm. The left ovary measures 25 mm x 19 mm x 17 mm. There is no free fluid visualized. There is debris noted within the urinary bladder. Technique: Three dimensional imaging was created on a dedicated stand-alone 3D workstation with images created and archived, and supervised and reviewed by the interpreting physician utilizing images from a US Scan performed on 03/06/24. Recommendations 3D rendering confirms the IUD to be in the proper location within the fundal endometrial cavity. Recommend further clinical evaluation of the urinary bladder and urinalysis. History Medical History Surgery: section x 2 Menstrual History LMP on 02/10/2024. Contraception: Intrauterine contraceptive device Method Transabdominal, transvaginal, 3D ultrasound examination, Color Doppler examination. View: Adequate visualization Uterus Uterus: Visualized Uterus position: anteverted Description of uterine malformations: none Myometrium: heterogeneous Endometrium: normal Cervix details: cystic lesions identified suggesting superficial Nabothian cysts Uterus length 84 mm Uterus width 55 mm Uterus height 37 mm Uterus Vol 89.4 cm Endometrial thickness, total 7.3 mm Fibroids: No fibroids identified Polyps: No polyps identified IUCD Position control IUCD type: Paragard. Location: positioned correctly at the fundus of the uterus Right Ovary Rt ovary: Visualized Rt ovary morphology: premenopausal normal follicular Rt ovary D1 22 mm Rt ovary D2 10 mm Rt ovary D3 16 mm Rt ovary Vol 1.8 cm Rt ovarian cyst(s): No cysts identified Left Ovary Lt ovary: Visualized Lt ovary morphology: premenopausal with dominant follicle Lt ovary D1 25 mm Lt ovary D2 19 mm Lt ovary D3 17 mm Lt ovary Vol 4.2 cm Lt ovarian cyst(s): No cysts identified Cul de Sac Visualized. no free fluid visualized Procedure To characterize the IUD, three dimensional imaging was created on a dedicated stand-alone 3D workstation with images created and archived, and supervised and reviewed by the interpreting physician utilizing images from an ultrasound scan performed today. Performed By: Milana Mahmood RDMS Read By: Anjelica Campuzano M.D. MATERNAL MEDICINE [facility] US Pelvison 03-06-2024 Radiology Study observation (narrative) [facility] CNOVon 02-27-2024 CNOV Office Visit (OBGYWM ) -------- HITESH KRUEGER ([id number]) 1985 F Date Time Provider Department 02/27/24 9:30 AM MALVIN HUSSEIN OBRITAWVu During your visit today, we recorded the following information about you: Blood pressure Weight Last Period 132/74 83.9 kg 02/10/24 Malvin Hussein MD 02/27/2024 10:42 AM Signed Hitesh Krueger is a 38 year old female who presents for problem visit with c/o HMB on paraguard since 02/09 along with cramping and abdominal pain. Note hx of abnormal pap and negative cx bx in 2016 with +HR/HPV. No pap since. . 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 Vitamin D deficiency PAST SURGICAL HISTORY Procedure Laterality Date DELIVERY ONLY , low cervical X 2 CONIZATION CERVIX W/WO DANDC RPR ELTRD EXC 2007 LEEP-Cervix with only mild dysplasia found S LASER CO2 03/28 KELLEN III TONSILLECTOMY PRIMARY/SECONDARY Tonsillectomy FAMILY HISTORY Problem Relation Age of Onset Heart Mother Hypertension Mother Arthritis Father Emphysema Paternal Grandmother Social History Tobacco Use Smoking status: Former Current packs/day: 0.00 Average packs/day: 0.5 packs/day for 4.0 years (2.0 ttl pk-yrs) Types: Cigarettes Start date: 04/22/2004 Quit date: 04/22/2008 Years since quittin.8 Smokeless tobacco: Never Vaping Use Vaping status: Never Used Substance Use Topics Alcohol use: No Drug use: Not Currently Current Outpatient Medications Medication Sig WEGOVY 2.4 mg/0.75 mL pen injector Inject 2.4 mg subcutaneously one time a week. VITAMIN D2 1,250 mcg (50,000 unit) capsule Take 1 capsule by mouth one time a week. Amphetamine-Dextroamphet amine (ADDERALL) 30 mg tablet Take 30 mg by mouth once daily. ibuprofen (MOTRIN) 600 mg tablet Take 1 tablet by mouth every 6 hours as needed. (Patient taking differently: Take 600 mg by mouth every 6 hours.) busPIRone (BUSPAR) 5 mg tablet Take by mouth. (Patient not taking: Reported on 02/27/2024) DUREZOL 0.05 % (Patient not taking: Reported on 02/27/2024) SUMAtriptan (IMITREX) 100 mg tablet take 1 (ONE) tab BY MOUTH at onset of headache; if no relief, may repeat 1 (ONE) tab after at least 2 (TWO) HOURS; max = 2 (TWO) tabs/24 GWENDOLYN (Patient not taking: Reported on 02/27/2024) SUMAtriptan (IMITREX) 50 mg tablet Take one tablet every two hours as needed for headache. Max 2 tablets per day. (Patient not taking: Reported on 02/27/2024) topiramate (TOPAMAX) 100 mg tablet Take 100 mg by mouth twice daily. (Patient not taking: Reported on 02/27/2024) buPROPion XL (WELLBUTRIN XL) 150 mg 24 hr tablet Take 150 mg by mouth once daily. (Patient not taking: Reported on 02/27/2024) No current facility-administered medications for this visit. Allergies As of Date: 02/27/2024 Allergen Noted Reaction ADHESIVE TAPE (ROSINS) 05/23/2008 Rash, Swelling, and Itching INDERAL [PROPRANOLOL] 11/19/2020 Vomiting LATEX 11/09/2011 Rash Fully Assessed 11/19/2020 REVIEW OF SYSTEMS Abdomen: No bloating, early satiety, indigestion, or increased flatulence. No abdominal pain, nausea, vomiting, diarrhea, or constipation. Bladder: No dysuria, gross hematuria, urinary frequency, urinary urgency, or incontinence. Breast: No breast lumps, nipple d/c, overlying skin changes, redness or skin retraction. Expanded ROS: N/A Allergies and current medication updated:Yes SENSITIVE EXAM: The sensitive examination was discussed with the Patient or Patient's Authorized Vice President Education. As applicable, any other physician, advance practice provider, medical student, or other health professional student that will be observing or involved in the sensitive examination for educational or training purposes was discussed with the Patient or Authorized Vice President Education. The Patient or Authorized Vice President Education has agreed to proceed with the sensitive examination. (Sensitive examination includes inspection and/or palpation of the breasts, pelvis, prostate and anorectal regions). EXAM: BP 132/74 Wt 185 lb (83.9kg) LMP 02/10/2024 GENERAL: pleasant, female in no apparent distress HEENT: ABDOMEN: soft, non-tender, and no masses PELVIC: external genitalia normal, normal Bartholin's glands, urethra, [place]'s glands, no vulvar lesions, no cervical lesions, good vaginal support, physiologic discharge (more content not included)... [facility] [facility] HIGH RISK HUMAN PAPILLOMA KIKI (HPV), PCR FOR DETECTION AND GENOTYPINGon 02-27-2024 HPV 16 Ag Ql (Unsp spec) Detected Abnormal Not detected [facility] Comment on above: Order Comment: Speci men Type: FLUID SPECIMEN Ordering Facility: [facility] Address: [address] [place] [address] Performed By: #### L [id number], HPVHRT #### [facility] CLIA [id number] [address] [place] [address] [place] HPV 18 Ag Ql (Unsp spec) Not detected Normal Not detected [facility] Comment on above: Order Comment: Speci men Type: FLUID SPECIMEN Ordering Facility: [facility] Address: [address] [place] [address] Performed By: #### L [id number], HPVHRT #### [facility] CLIA [id number] [address] [place] [address] [place] HPV 31+33+35+39+45+51+52+ 56+58+59+66+68 DNA ZUHAIR+probe Ql (Cvx) Not detected Normal Not detected [facility] Comment on above: Order Comment: Speci men Type: FLUID SPECIMEN Ordering Facility: [facility] Address: [address] [place] [address] Result Comment: High Risk HPV Other Type includes HPV types 31, 33, 35, 39, 45, 51, 52, 56, 58, 59, 66 and 68. Performed By: #### L [id number], HPVHRT #### [facility] CLIA [id number] [address] [place] [address] [place] PAP TESTon 02-27-2024 ADEQUACY Normal [facility] Comment on above: Order Comment: Speci men Type: FLUID SPECIMEN Ordering Facility: [facility] Address: [address] [place] [address] Result Comment: Unsa tisfactory for evaluation. Excess blood Limited cellularity. Performed By: #### L [id number], HPVHRT #### [facility] CLIA [id number] [address] [place] [address] [place] CASE REPORT Normal [facility] Comment on above: Order Comment: Speci men Type: FLUID SPECIMEN Ordering Facility: [facility] Address: [address] [place] [address] Result Comment: Gyne cologic Cytology Report Case: [id number] Authorizing Provider: Malvin Hussein MD Collected: 02/27/2024 11:57 AM Ordering Location: OB/Gynecology Received: 02/28/2024 09:28 AM First Screen: Marisela Bauman, CT, ASCP Rescreen: Loulou Kim, CT, ASCP Specimen: Pap Test, ThinPrep, Cervix Performed By: #### L [id number], HPVHRT #### [facility] CLIA [id number] [address] [place] [address] [place] CLINICAL HISTORY, CYTOLOGY, ELECTRO WINNING OPERATOR Previous LEEP Normal [facility] Comment on above: Order Comment: Speci men Type: FLUID SPECIMEN Ordering Facility: [facility] Address: [address] [place] [address] Result Comment: Prev ious Abnormal Pap Performed By: #### L [id number], HPVHRT #### [facility] CLIA [id number] [address] [place] [address] [place] FINAL PERFORMING LAB Normal [facility] Comment on above: Order Comment: Speci men Type: FLUID SPECIMEN Ordering Facility: [facility] Address: [address] [place] [address] Result Comment: Tech nical component, machine taper screening performed at [facility], [facility] [place] [address] CLIA# [id number] Diagnostic interpretation performed at [facility], [address] [place], [place] [id number] CLIA# [id number] Seed Sales Manager: Sherif Kern M.D. Performed By: #### L [id number], HPVHRT #### [facility] CLIA [id number] [address] [place] [address] [place] GROSS DESCRIPTION A. Cervix Normal [facility] Comment on above: Order Comment: Speci men Type: FLUID SPECIMEN Ordering Facility: [facility] Address: [address] [place] [address] Result Comment: Glac ial Acetic Acid added. Performed By: #### L [id number], HPVHRT #### [facility] CLIA [id number] [address] [place] [address] [place] HPV REFLEX Yes HPV Normal [facility] Comment on above: Order Comment: Speci men Type: FLUID SPECIMEN Ordering Facility: [facility] Address: [address] [place] [address] Performed By: #### L [id number], HPVHRT #### [facility] CLIA [id number] [address] [place] [address] [place] INTERPRETATION, CYTOLOGY, ELECTRO WINNING OPERATOR Normal [facility] Comment on above: Order Comment: Speci men Type: FLUID SPECIMEN Ordering Facility: [facility] Address: [address] [place] [address] Result Comment: Unab le to perform interpretation due to unsatisfactory specimen. Performed By: #### L [id number], HPVHRT #### [facility] CLIA [id number] [address] [place] [address] [place] LMP 02/10/2024 Normal [facility] Comment on above: Order Comment: Speci men Type: FLUID SPECIMEN Ordering Facility: [facility] Address: [address] [place] [address] Performed By: #### L [id number], HPVHRT #### [facility] CLIA [id number] [address] [place] [address] [place] PAP DISCLAIMER COMMENT The Pap Smear is a screening test for cervical cancer. False negative results occur with all screening tests, emphasizing the need for rescreening at recommended intervals, and clinical correlation. Normal [facility] Comment on above: Order Comment: Speci men Type: FLUID SPECIMEN Ordering Facility: [facility] Address: [address] [place] [address] Performed By: #### L [id number], HPVHRT #### [facility] CLIA [id number] [address] [place] [address] [place] Miscellaneous Lab Procedureo n 01-28-2024 [facility] LAB TEST Normal [facility] Comment on above: Order Comment: [id number] PCP SCREEN W/REFLEX WB/RMT OR RF [id number] PCP SCREEN W/REFLEX WB/RMT OR RF Result Comment: TEST RESULTS LIMITS Phencyclidine, Scr w/Conf, WB PHENCYCLIDINE, IA Negative ng/mL Cutoff:8 This test was developed and its performance characteristics determined by [facility]. It has not been cleared or approved by the Food and Drug Administration. TESTING PERFORMED AT [facility]. ORIGINAL REPORT ON FILE IN LAB CONTAINS ADDITIONAL TEST SITE INFORMATION. Performed By: #### L 801.1541 #### [facility] [address] [place], [address] CBC W/Diff, Automatedon 08 Absolute Lymph 3.16 X10 3/uL Normal 0.83-4.51 [facility] Comment on above: Performed By: #### L 501.9520, L505.5000, L100.0100, L500.4100, L500.4050 #### [facility] [address] [place], [address] Absolute Neut 5.3 X10 3/uL Normal 2.0-7.7 [facility] Comment on above: Performed By: #### L 501.9520, L505.5000, L100.0100, L500.4100, L500.4050 #### [facility] [address] [place], [address] Basophils/100 WBC (Bld) 0.5 % Normal 0-1 [facility] Comment on above: Performed By: #### L 501.9520, L505.5000, L100.0100, L500.4100, L500.4050 #### [facility] [address] [place], [address] Eosinophils/100 WBC (Bld) 1.4 % Normal 0-5 [facility] Comment on above: Performed By: #### L 501.9520, L505.5000, L100.0100, L500.4100, L500.4050 #### [facility] [address] [place], [address] Erythrocyte distribution width (RBC) [Ratio] 14.1 % Normal 11.6-14.6 [facility] Comment on above: Performed By: #### L 501.9520, L505.5000, L100.0100, L500.4100, L500.4050 #### [facility] [address] [place], [address] Hematocrit (Bld) [Volume fraction] 37.5 % Normal 37-47 [facility] Comment on above: Performed By: #### L 501.9520, L505.5000, L100.0100, L500.4100, L500.4050 #### [facility] [address] [place], [address] Hemoglobin (Bld) [Mass/Vol] 11.8 g/dL Low 12.0-15.0 [facility] Comment on above: Performed By: #### L 501.9520, L505.5000, L100.0100, L500.4100, L500.4050 #### [facility] [address] [place], [address] IG% 0.200 Normal 0.0-0.9 [facility] Comment on above: Result Comment: IG% - Immature Granulocytes (promyelocytes, myelocytes and metamyelocytes) > 1% indicates that a LEFT SHIFT is Present. Performed By: #### L 501.9520, L505.5000, L100.0100, L500.4100, L500.4050 #### [facility] [address] [place], [address] Lymphocytes/100 WBC (Bld) 34.1 % Normal 19-41 [facility] Comment on above: Performed By: #### L 501.9520, L505.5000, L100.0100, L500.4100, L500.4050 #### [facility] [address] [place], [address] MCH (RBC) [Entitic mass] 27.6 pg Normal 27.0-32.0 [facility] Comment on above: Performed By: #### L 501.9520, L505.5000, L100.0100, L500.4100, L500.4050 #### [facility] [address] [place], [address] MCHC (RBC) [Mass/Vol] 31.5 g/dL Low 32-36 [facility] Comment on above: Performed By: #### L 501.9520, L505.5000, L100.0100, L500.4100, L500.4050 #### [facility] [address] [place], [address] MCV (RBC) [Entitic vol] 87.6 fL Normal 81-99 [facility] Comment on above: Performed By: #### L 501.9520, L505.5000, L100.0100, L500.4100, L500.4050 #### [facility] [address] [place], [address] Monocytes/100 WBC (Bld) 6.3 % Normal 0-10 [facility] Comment on above: Performed By: #### L 501.9520, L505.5000, L100.0100, L500.4100, L500.4050 #### [facility] [address] [place], [address] Neutrophils/100 WBC (Bld) 57.5 % Normal 47-70 [facility] Comment on above: Performed By: #### L 501.9520, L505.5000, L100.0100, L500.4100, L500.4050 #### [facility] [address] [place], [address] Nucleated RBC (Bld) [#/Vol] 0 10*3/uL Normal 0-5 [facility] Comment on above: Performed By: #### L 501.9520, L505.5000, L100.0100, L500.4100, L500.4050 #### [facility] [address] [place], [address] Platelet mean volume (Bld) [Entitic vol] 10.0 fL Normal 6.2-12.0 [facility] Comment on above: Performed By: #### L 501.9520, L505.5000, L100.0100, L500.4100, L500.4050 #### [facility] [address] [place], [address] Platelets (Bld) [#/Vol] 456 10*3/uL High 150-450 [facility] Comment on above: Performed By: #### L 501.9520, L505.5000, L100.0100, L500.4100, L500.4050 #### [facility] [address] [place], [address] RBC (Bld) [#/Vol] 4.28 10*6/uL Normal 4.2-5.4 [facility] Comment on above: Performed By: #### L 501.9520, L505.5000, L100.0100, L500.4100, L500.4050 #### [facility] [address] [place], [address] RDW SD 45.2 fl High 35.1-43.9 [facility] Comment on above: Performed By: #### L 501.9520, L505.5000, L100.0100, L500.4100, L500.4050 #### [facility] [address] [place], [address] WBC (Bld) [#/Vol] 9.3 10*3/uL Normal 4.4-11.0 [facility] Comment on above: Performed By: #### L 501.9520, L505.5000, L100.0100, L500.4100, L500.4050 #### [facility] [address] [place], [address] Comprehensive Metabolic Prof [facility] 12-26-2023 Albumin [Mass/Vol] 3.5 g/dL Normal 3.2-5.0 [facility] Comment on above: Performed By: #### L 501.9520, L505.5000, L100.0100, L500.4100, L500.4050 #### [facility] [address] [place], [address] Albumin/Globulin [Mass ratio] 0.9 {ratio} Normal 0.9-2.4 [facility] Comment on above: Performed By: #### L 501.9520, L505.5000, L100.0100, L500.4100, L500.4050 #### [facility] [address] [place], [address] ALK P 86 U/L Normal 45-117 [facility] Comment on above: Performed By: #### L 501.9520, L505.5000, L100.0100, L500.4100, L500.4050 #### [facility] [address] [place], [address] ALT [Catalytic activity/Vol] 18 U/L Normal 13-56 [facility] Comment on above: Performed By: #### L 501.9520, L505.5000, L100.0100, L500.4100, L500.4050 #### [facility] [address] [place], [address] AST [Catalytic activity/Vol] 14 U/L Low 15-37 [facility] Comment on above: Performed By: #### L 501.9520, L505.5000, L100.0100, L500.4100, L500.4050 #### [facility] [address] [place], [address] Bilirubin [Mass/Vol] 0.50 mg/dL Normal 0.20-1.00 [facility] Comment on above: Result Comment: For patients on eltrombopag therapy, use of Dimension [place] TBIL is not recommended. Performed By: #### L 501.9520, L505.5000, L100.0100, L500.4100, L500.4050 #### [facility] [address] [place], [address] BUN/CRE 9.2 RATIO Low 10-20 [facility] Comment on above: Performed By: #### L 501.9520, L505.5000, L100.0100, L500.4100, L500.4050 #### [facility] [address] [place], [address] CA,Total 8.7 mg/dL Normal 8.5-10.1 [facility] Comment on above: Performed By: #### L 501.9520, L505.5000, L100.0100, L500.4100, L500.4050 #### [facility] [address] [place], [address] Chloride [Moles/Vol] 105 mmol/L Normal 98-107 [facility] Comment on above: Performed By: #### L 501.9520, L505.5000, L100.0100, L500.4100, L500.4050 #### [facility] [address] [place], [address] CO2 [Moles/Vol] 25.0 mmol/L Normal 21.0-32.0 [facility] Comment on above: Performed By: #### L 501.9520, L505.5000, L100.0100, L500.4100, L500.4050 #### [facility] [address] [place], [address] Creatinine [Mass/Vol] 0.98 mg/dL Normal 0.55-1.02 [facility] Comment on above: Result Comment: The validity of the calculated GFR GFRAA in patients over 70 years has not been determined. Clinical correlation is essential. Performed By: #### L 501.9520, L505.5000, L100.0100, L500.4100, L500.4050 #### [facility] [address] [place], [address] EST GFR - AA 82 mL/min Normal >60 [facility] Comment on above: Result Comment: Afri can Angolan GFR Calc Performed By: #### L 501.9520, L505.5000, L100.0100, L500.4100, L500.4050 #### [facility] [address] [place], [address] GAP 7 Normal 5-15 [facility] Comment on above: Performed By: #### L 501.9520, L505.5000, L100.0100, L500.4100, L500.4050 #### [facility] [address] [place], [address] GFR/1.73 sq M.predicted among non-blacks MDRD (S/P/Bld) [Vol rate/Area] 68 mL/min/{1.73_m2} Normal >60 [facility] Comment on above: Result Comment: Non- GFR Calc Performed By: #### L 501.9520, L505.5000, L100.0100, L500.4100, L500.4050 #### [facility] [address] [place], [address] Globulin (S) [Mass/Vol] 4.1 g/dL Normal 2.2-4.2 [facility] Comment on above: Performed By: #### L 501.9520, L505.5000, L100.0100, L500.4100, L500.4050 #### [facility] [address] [place], [address] Glucose [Mass/Vol] 68 mg/dL Low 74-106 [facility] Comment on above: Performed By: #### L 501.9520, L505.5000, L100.0100, L500.4100, L500.4050 #### [facility] [address] [place], [address] Potassium [Moles/Vol] 3.8 mmol/L Normal 3.5-5.1 [facility] Comment on above: Performed By: #### L 501.9520, L505.5000, L100.0100, L500.4100, L500.4050 #### [facility] [address] [place], [address] Sodium [Moles/Vol] 137 mmol/L Normal 136-145 [facility] Comment on above: Performed By: #### L 501.9520, L505.5000, L100.0100, L500.4100, L500.4050 #### [facility] [address] [place], [address] T PROT 7.6 g/dL Normal 6.4-8.2 [facility] Comment on above: Performed By: #### L 501.9520, L505.5000, L100.0100, L500.4100, L500.4050 #### [facility] [address] [place], [address] Urea nitrogen [Mass/Vol] 9 mg/dL Normal 7-18 [facility] Comment on above: Performed By: #### L 501.9520, L505.5000, L100.0100, L500.4100, L500.4050 #### [facility] [address] [place], [address] Lipid Profileon 12-26-2023 Cholesterol [Mass/Vol] 149 mg/dL Normal 200 [facility] Comment on above: Result Comment: <200 mg/dL Desirable 200-240 mg/dL Borderline >240 mg/dL High Risk Performed By: #### L 501.9520, L505.5000, L100.0100, L500.4100, L500.4050 #### [facility] [address] [place], [address] Cholesterol in HDL [Mass/Vol] 24 mg/dL Low [facility] Comment on above: Result Comment: The drugs N-Acetylcysteine and Metamizole may falsely depress this assay. Reference Range HDL <40 mg/dL Low HDL Cholesterol HDL >or= 60 mg/dL High HDL Cholesterol Performed By: #### L 501.9520, L505.5000, L100.0100, L500.4100, L500.4050 #### [facility] [address] [place], [address] Cholesterol in LDL [Mass/Vol] 98 mg/dL Normal 0-130 [facility] Comment on above: Performed By: #### L 501.9520, L505.5000, L100.0100, L500.4100, L500.4050 #### [facility] [address] [place], [address] Cholesterol in VLDL [Mass/Vol] 27 mg/dL Normal 5-40 [facility] Comment on above: Performed By: #### L 501.9520, L505.5000, L100.0100, L500.4100, L500.4050 #### [facility] [address] [place], [address] Triglyceride [Mass/Vol] 134 mg/dL Normal [facility] Comment on above: Result Comment: The drugs N-Acetylcysteine and Metamizole may falsely depress this assay. Serum Triglycerides Reference Interval Normal <150 mg/dL Borderline high 150 - 199 mg/dL High 200 - 499 mg/dL Very High > or = 500 mg/dL Performed By: #### L 501.9520, L505.5000, L100.0100, L500.4100, L500.4050 #### [facility] [address] [place], [address] Thyroid Stim Hormone (TSH)on 12-26-2023 TSH 1.300 uIU/mL Normal 0.358-3.740 [facility] Comment on above: Performed By: #### L 501.9520, L505.5000, L100.0100, L500.4100, L500.4050 #### [facility] [address] [place], [address] Urine Drug Screen (VISTA)on 12-26-2023 AMPHETAMINES Positive Abnormal <1000 ng/mL [facility] Comment on above: Order Comment: UNK Performed By: #### L 501.9520, L505.5000, L100.0100, L500.4100, L500.4050 #### [facility] [address] [place], [address] BARBITIURATES Negative Normal < 200 ng/mL [facility] Comment on above: Order Comment: UNK Performed By: #### L 501.9520, L505.5000, L100.0100, L500.4100, L500.4050 #### [facility] [address] [place], [address] BENZODIAZIPINE Negative Normal < 200 ng/mL [facility] Comment on above: Order Comment: UNK Performed By: #### L 501.9520, L505.5000, L100.0100, L500.4100, L500.4050 #### [facility] [address] [place], [place], [facility] COCAINE Negative Normal < 300 ng/mL [facility] Comment on above: Order Comment: UNK Performed By: #### L 501.9520, L505.5000, L100.0100, L500.4100, L500.4050 #### [facility] [address] [place], [address] ECSTACY Positive Abnormal < 500 ng/mL [facility] Comment on above: Order Comment: UNK Performed By: #### L 501.9520, L505.5000, L100.0100, L500.4100, L500.4050 #### [facility] [address] [place], [address] METHADONE Negative Normal < 300 ng/mL [facility] Comment on above: Order Comment: UNK Performed By: #### L 501.9520, L505.5000, L100.0100, L500.4100, L500.4050 #### [facility] [address] [place], [address] OPIATES Negative Normal < 300 ng/mL [facility] Comment on above: Order Comment: UNK Performed By: #### L 501.9520, L505.5000, L100.0100, L500.4100, L500.4050 #### [facility] [address] [place], [address] PCP Negative Normal < 25 ng/mL [facility] Comment on above: Order Comment: UNK Performed By: #### L 501.9520, L505.5000, L100.0100, L500.4100, L500.4050 #### [facility] [address] [place], [address] THC Negative Normal < 50 ng/mL [facility] Comment on above: Order Comment: UNK Performed By: #### L 501.9520, L505.5000, L100.0100, L500.4100, L500.4050 #### [facility] [address] [place], [address] VISTA UDS PH 6 Normal [facility] Comment on above: Order Comment: UNK Performed By: #### L 501.9520, L505.5000, L100.0100, L500.4100, L500.4050 #### [facility] [address] [place], [address] Laboratory - Drug toxicology Ordered By: Reginaldo Tiwari on 08-15-2022 Amphetamines Ql (U) Positive <1000 ng/mL [facility] Benzodiazepines Ql (U) Negative < 200 ng/mL [facility] Cannabinoids Screen Ql (U) Negative < 50 ng/mL [facility] Cocaine Ql (U) Negative < 300 ng/mL [facility] Opiates Ql (U) Negative < 300 ng/mL [facility] No Panel InformationOrdered By: Reginaldo Tiwari on 08-15-2022 MDMA (Ecstasy) Screen Negative < 500 ng/mL [facility] Urine Barbiturates Screen Negative < 200 ng/mL [facility] Urine Drug Screen Comment [facility] Comment on above: CONFIRMATORY TESTING FOR ALL POSITIVE URINE DRUG SCREENRESULTS WILL ONLY BE SENT OUT UPON PHYSICIAN ORDER. VISTA Urine Drug Screen methods provide only preliminaryanalytical test results. A more specific alternate chemicalmethod must be used in order to obtain a confirmedanalytical result. Gas chromatography/mass spectrometery(GC/MS) is the preferred confirmatory method. Clinicalconsideration and professional judgement should be appliedto any drug of abuse test result, particularly whenpreliminary positive results are used. URINE TCA TESTING MUST BE ORDERED SEPARATELY. USE TESTMNEMONIC: IACA Urine Methadone Screen Negative < 300 ng/mL [facility] Urine phencyclidine (PCP) de tectionOrdered By: Reginaldo Tiwari on 08-15-2022 Phencyclidine Ql (U) Negative < 25 ng/mL [facility] - Drug toxicology Ordered By: Reginaldo Tiwari on 05-17-2022 Amphetamines Ql (U) Positive <1000 ng/mL [facility] Benzodiazepines Ql (U) Negative < 200 ng/mL [facility] Cannabinoids Screen Ql (U) Negative < 50 ng/mL [facility] Cocaine Ql (U) Negative < 300 ng/mL [facility] Opiates Ql (U) Negative < 300 ng/mL [facility] No Panel InformationOrdered By: Reginaldo Tiwari on 05-17-2022 MDMA (Ecstasy) Screen Positive < 500 ng/mL [facility] Urine Barbiturates Screen Negative < 200 ng/mL [facility] Urine Drug Screen Comment [facility] Comment on above: CONFIRMATORY TESTING FOR ALL POSITIVE URINE DRUG SCREENRESULTS WILL ONLY BE SENT OUT UPON PHYSICIAN ORDER. VISTA Urine Drug Screen methods provide only preliminaryanalytical test results. A more specific alternate chemicalmethod must be used in order to obtain a confirmedanalytical result. Gas chromatography/mass spectrometery(GC/MS) is the preferred confirmatory method. Clinicalconsideration and professional judgement should be appliedto any drug of abuse test result, particularly whenpreliminary positive results are used. URINE TCA TESTING MUST BE ORDERED SEPARATELY. USE TESTMNEMONIC: [facility] Urine Methadone Screen Negative < 300 ng/mL [facility] Urine phencyclidine (PCP) de tectionOrdered By: Reginaldo Tiwari on 05-17-2022 Phencyclidine Ql (U) Negative < 25 ng/mL [facility] - Microbiology an d Antimicrobial susceptibilityon 09-27-2021 SARS-CoV-2 (COVID-19) RNA ZUHAIR+probe Ql (Unsp spec) Not detected Not Detect [facility] Work Phone: Comment on above: Normal Reference Ran ge: Not DetectedMethod:(RT-PCR) real-time reverse transcriptase PCRLuminex CATALINA Instrument*The Food and Drug Administration (FDA) has issued an Emergency Use Authorization (EAU) for the [employer] SARS-CoV-2 Assay for the rapid detection of the virus that causes COVID-19. This test has been validated, but the FDAs independent review of this validation is pending.*Negative results do not preclude infection and should not be used as the sole basis for treatment or patient management. Optimum specimen types and timing for peak viral levels during infections caused by SARS-CoV-2 have not been determined. Collection of multiple specimens from the same patient may be necessary to detect the virus. The possibility of a false negative result should be considered if the patient has clinical presentation or has had recent exposure. Absolute lymphocyte counton 09-20-2021 Lymphocytes Auto (Unsp spec) [#/Vol] 2.98 10*3/uL 0.83-4.51 [facility] Work Phone: Basophil percentageon 2021 Basophils/100 WBC (Bld) 0.6 % 0-1 [facility] Work Phone: Bilirubin [Mass/Vol] 0.60 mg/dL 0.20-1.00 [facility] Work Phone: Comment on above: For patients on eltr ombopag therapy, use of Dimension [place] TBIL is not recommended. Chloride [Moles/Vol] 108 mmol/L 98-107 [facility] Work Phone: Cholesterol [Mass/Vol] 185 mg/dL <200 [facility] Work Phone: Comment on above: <200 mg/dL Desirable 200-240 mg/dL Borderline >240 mg/dL High Risk Eosinophils/100 WBC (Bld) 1.1 % 0-5 [facility] Work Phone: Glucose [Mass/Vol] 58 mg/dL 74-106 [facility] Work Phone: [phone] Neutrophils (Bld) [#/Vol] 9.8 10*3/uL 2.0-7.7 [facility] Work Phone: [phone] Neutrophils/100 WBC (Bld) 70.1 % 47-70 [facility] Work Phone: [phone] Potassium [Moles/Vol] 3.9 mmol/L 3.5-5.1 [facility] Work Phone: [phone] Protein [Mass/Vol] 7.8 g/dL 6.4-8.2 [facility] Work Phone: [phone] Sodium [Moles/Vol] 138 mmol/L 136-145 [facility] Work Phone: [phone] Triglyceride [Mass/Vol] 140 mg/dL [facility] Work Phone: Comment on above: The drugs N-Acetylcy steine and Metamizole may falsely depress this assay.Serum Triglycerides Reference Interval Normal <150 mg/dL Borderline high 150 - 199 mg/dL High 200 - 499 mg/dL Very High > or = 500 mg/dL WBC (Bld) [#/Vol] 13.9 10*3/uL 4.4-11.0 [facility] Work Phone: [phone] Blood erythrocytes count (nu mber/volume)on 09-20-2021 RBC (Bld) [#/Vol] 4.58 10*6/uL 4.2-5.4 [facility] Work Phone: Blood hemoglobin measurement (mass/volume)on 09-20-2021 Hemoglobin (Bld) [Mass/Vol] 12.9 g/dL 12.0-15.0 [facility] Work Phone: Blood lymphocytes/100 leukoc yteson 09-20-2021 Lymphocytes/100 WBC (Bld) 21.4 % 19-41 [facility] Work Phone: [phone] Blood monocytes/100 leukocyt eson 09-20-2021 Monocytes/100 WBC (Bld) 6.3 % 0-10 [facility] Work Phone: Blood platelet mean volumeon 09-20-2021 Platelet mean volume (Bld) [Entitic vol] 10.3 fL 6.2-12.0 [facility] Work Phone: Determination of erythrocyte mean corpuscular volume (MCV)on 09-20-2021 MCV (RBC) [Entitic vol] 88.4 fL 81-99 [facility] Work Phone: Hematocrit Auto (Bld) [Volum e fraction]on 09-20-2021 Hematocrit (Bld) [Volume fraction] 40.5 % 37-47 [facility] Work Phone: Laboratory - Chemistry and C hemistry - challengeon 09-20-2021 ALP [Catalytic activity/Vol] 111 U/L 45-117 [facility] Work Phone: ALT [Catalytic activity/Vol] 18 U/L 13-56 [facility] Work Phone: CO2 [Moles/Vol] 21.0 mmol/L 21.0-32.0 [facility] Work Phone: Globulin (S) [Mass/Vol] 4.2 g/dL 2.2-4.2 [facility] Work Phone: Urea nitrogen/Creatinine [Mass ratio] 9.3 mg/mg 10-20 [facility] Work Phone: Laboratory - Hematology and Cell countson 09-20-2021 Erythrocyte distribution width (RBC) [Entitic vol] 47.9 fL 35.1-43.9 [facility] Work Phone: Erythrocyte distribution width (RBC) [Ratio] 14.8 % 11.6-14.6 [facility] Work Phone: Immature granulocytes/100 WBC (Bld) 0.500 % 0.0-0.9 [facility] Work Phone: Comment on above: IG% - Immature Granu locytes (promyelocytes, myelocytes and metamyelocytes) > 1% indicates that a LEFT SHIFT is Present. MCH (RBC) [Entitic mass] 28.2 pg 27.0-32.0 [facility] Work Phone: Nucleated RBC/100 WBC (Bld) [Ratio] 0 % 0-5 [facility] Work Phone: MCHC Auto (RBC) [Mass/Vol]on 09-20-2021 MCHC (RBC) [Mass/Vol] 31.9 g/dL 32-36 [facility] Work Phone: No Panel Informationon 09-20 Estimated GFR (MDRD) Amer 75 mL/min >60 [facility] Work Phone: Comment on above: GFR Calc Estimated GFR (MDRD) Non-Af Amer 62 mL/min >60 [facility] Work Phone: Comment on above: Non- GFR Calc Thyroid Stimulating Hormone (TSH) 1.47 uIU/mL 0.358-3.74 [facility] Work Phone: Vitamin D 25-Hydroxy 19.3 ng/mL [facility] Work Phone: Comment on above: Vitamin D 25(OH) Sta tus Range Deficiency <20 ng/mL (50nmol/L) Insufficiency 20 - 30 ng/mL (50 - 75 nmol/L) Sufficiency 30 - 100 ng/mL (75 - 250 nmol/L) Toxicity >100 ng/mL (>250 nmol/L) Platelets bldon 09-20-2021 Platelets (Bld) [#/Vol] 438 10*3/uL 150-450 [facility] Work Phone: Serum or plasma albumin destiny urement (mass/volume)on 09-20-2021 Albumin [Mass/Vol] 3.6 g/dL 3.2-5.0 [facility] Work Phone: Serum or plasma albumin/glob ulin mass ratioon 09-20-2021 Albumin/Globulin [Mass ratio] 0.9 {ratio} 0.9-2.4 [facility] Work Phone: Serum or plasma calcium destiny urement (mass/volume)on 09-20-2021 Calcium [Mass/Vol] 8.8 mg/dL 8.5-10.1 [facility] Work Phone: Serum or plasma cholesterol in HDL measurement (mass/volume)on 09-20-2021 Cholesterol in HDL [Mass/Vol] 34 mg/dL [facility] Work Phone: Comment on above: The drugs N-Acetylcy steine and Metamizole may falsely depress this assay. Reference Range HDL <40 mg/dL Low HDL Cholesterol HDL >or= 60 mg/dL High HDL Cholesterol Serum or plasma cholesterol in VLDL measurement (mass/volume)on 09-20-2021 Cholesterol in VLDL [Mass/Vol] 28 mg/dL 5-40 [facility] Work Phone: Serum or plasma creatinine m easurement (mass/volume)on 09-20-2021 Creatinine [Mass/Vol] 1.08 mg/dL 0.55-1.02 [facility] Work Phone: Comment on above: The validity of the calculated GFR & GFRAA in patients over 70 years has not been determined. Clinical correlation is essential. Serum or plasma low density lipoprotein (LDL) cholesterol measurement (mass/volume)on 09-20-2021 Cholesterol in LDL [Mass/Vol] 123 mg/dL 0-130 [facility] Work Phone: Serum or plasma urea nitroge n measurement (mass/volume)on 09-20-2021 Urea nitrogen [Mass/Vol] 10 mg/dL 7-18 [facility] Work Phone: Thin prep Papanicolaou smear with manual screeningon 09-20-2021 Thin prep Papanicolaou smear with manual screening 10 U/L 15-37 [facility] Work Phone: Thin prep Papanicolaou smear with manual screening 9 5-15 [facility] Work Phone: Laboratory - Drug toxicology on 06-28-2021 Amphetamines Ql (U) Positive [facility] Work Phone: Benzodiazepines Ql (U) Negative [facility] Work Phone: Cannabinoids Screen Ql (U) Negative [facility] Work Phone: Cocaine Ql (U) Negative [facility] Work Phone: Opiates Ql (U) Negative [facility] Work Phone: No Panel Informationon 06-28 Urine Barbiturates Screen Negative [facility] Work Phone: Urine Drug Screen Comment [facility] Work Phone: Comment on above: CONFIRMATORY TESTING FOR ALL POSITIVE URINE DRUG SCREENRESULTS WILL ONLY BE SENT OUT UPON PHYSICIAN ORDER. VISTA Urine Drug Screen methods provide only preliminaryanalytical test results. A more specific alternate chemicalmethod must be used in order to obtain a confirmedanalytical result. Gas chromatography/mass spectrometery(GC/MS) is the preferred confirmatory method. Clinicalconsideration and professional judgement should be appliedto any drug of abuse test result, particularly whenpreliminary positive results are used. URINE TCA TESTING MUST BE ORDERED SEPARATELY. USE TESTMNEMONIC: [facility] Urine Methadone Screen Negative [facility] Work Phone: Urine Methamphetamine-MDMA Screen Negative [facility] Work Phone: Urine phencyclidine (PCP) de tectionon 06-28-2021 Phencyclidine Ql (U) Negative [facility] Work Phone: CRPon 06-24-2018 CRP mass conc 1.15 mg/dL High <=0.80 [facility] ([place]) Comment on above: Performed By: #### C RUCHI MARTINEZ ANEU #### [address] [address] #### CRP #### [address] [address] .Auto Diffon 06-21-2018 Ammonia mass conc (P) 0.80 10 3/mcL Normal 0.15-1.00 [facility] ([place]) Comment on above: Performed By: #### RUCHI PERALTA ANEU #### [address] [address] #### CRP #### [address] [address] Basophils #/vol (Bld) 0.10 10 3/mcL Normal 0.00-0.19 [facility] ([place]) Comment on above: Performed By: #### RUCHI PERALTA ANEU #### [address] [address] #### CRP #### [address] [address] Basophils/100 WBC (Bld) 0.5 % Normal 0.0-2.5 [facility] ([place]) Comment on above: Performed By: #### RUCHI PERALTA ANEU #### [place] [address] #### CRP #### [address] [address] Eosinophils #/vol (Bld) 0.20 10 3/mcL Normal 0.00-0.40 [facility] ([place]) Comment on above: Performed By: #### C RUCHI MARTINEZ, ANEU #### [address] [address] #### CRP #### [address] [address] Eosinophils/100 WBC (Bld) 1.8 % Normal 0.0-7.0 [facility] ([place]) Comment on above: Performed By: #### C RUCHI MARTINEZ, ANEU #### [address] [address] #### CRP #### [address] [address] Lymphocytes #/vol (Bld) 3.10 10 3/mcL Normal 0.77-3.85 [facility] ([place]) Comment on above: Performed By: #### C BC ADESTRELLA, ANEU #### [address] [address] #### CRP #### [address] [address] Lymphocytes/100 WBC (Bld) 24.4 % Normal 10.0-50.0 [facility] ([place]) Comment on above: Performed By: #### C RUCHI MARTINEZ, ANEU #### [place] [address] #### CRP #### [address] [address] Monocytes/100 WBC (Bld) 5.9 % Normal 1.7-13.0 [facility] ([place]) Comment on above: Performed By: #### C RUCHI MARTINEZ, ANEU #### [address] [address] #### CRP #### [address] [address] Neutrophils/100 WBC (Bld) 67.4 % Normal 37.0-80.0 [facility] ([place]) Comment on above: Performed By: #### C MICHELLE, KAYLAIFF, ANEU #### [place] [address] #### CRP #### [address] [address] .NEUABSon 06-21-2018 Neutrophils #/vol (Bld) 8.70 10 3/mcL High 2.85-6.16 [facility] ([place]) Comment on above: Performed By: #### C RUCHI MARTINEZ, ANEU #### [address] [address] #### CRP #### [address] [address] CBCon 06-21-2018 Erythrocyte distribution width Ratio (RBC) 12.9 % Normal 11.5-14.5 [facility] ([place]) Comment on above: Performed By: #### C KAYLA MARTINEZIFF, ANEU #### [address] [address] #### CRP #### [address] [address] Hematocrit Volume Fraction (Bld) 40.8 % Normal 37.0-47.0 [facility] ([place]) Comment on above: Performed By: #### C RUCHI MARTINEZ, ANEU #### [address] [address] #### CRP #### [place] [address] Hemoglobin mass conc (Bld) 13.7 G/dL Normal 12.0-16.0 [facility] ([place]) Comment on above: Performed By: #### C RUCHI MARTINEZ, ANEU #### [address] [address] #### CRP #### [address] [address] MCH Entitic mass (RBC) 29.5 pg Normal 27.0-31.2 [facility] ([place]) Comment on above: Performed By: #### C MICHELLE, ADIFF, ANEU #### [address] [address] #### CRP #### [address] [address] MCHC mass conc (RBC) 33.7 G/dL Normal 33.0-37.0 [facility] ([place]) Comment on above: Performed By: #### C MICHELLE, ADIFF, ANEU #### [address] [address] #### CRP #### [place] [address] MCV Entitic volume (RBC) 87.7 fL Normal 80.0-94.0 [facility] ([place]) Comment on above: Performed By: #### C RUCHI MARTINEZ, ANEU #### [address] [address] #### CRP #### [place] [address] Platelet mean volume Entitic volume (Bld) 8.1 fL Normal 7.4-10.4 [facility] ([place]) Comment on above: Performed By: #### C RUCHI MARTINEZ, ANEU #### [place] [address] #### CRP #### [place] [address] Platelets #/vol (Bld) 404 10 3/mcL High 130-400 A [facility] ([place]) Comment on above: Performed By: #### C RUCHI MARTINEZ, ANEU #### [place] [address] #### CRP #### [place] [address] RBC #/vol (Bld) 4.65 10 6/mcL Normal 4.20-5.40 [facility] ([place]) Comment on above: Performed By: #### C RUCHI MARTINEZ, ANEU #### [place] [address] #### CRP #### [place] [address] WBC #/vol (Bld) 12.90 10 3/mcL High 4.60-10.80 [facility] ([place] Comment on above: Performed By: #### C RUCHI MARTINEZ, ANEU #### [place] [address] #### CRP #### [place] [address] .GFRon 06-18-2018 GFR Non- 67 ml/min/1.73sqm Normal [facility] ([place]) Comment on above: Result Comment: GFR Population mean for , Non- Americans Ages 20-29 = 116 mL/min/1.73 sq.m. Ages 30-39 = 107 mL/min/1.73 sq.m. Ages 40-49 = 99 mL/min/1.73 sq.m. Ages 50-59 = 93 mL/min/1.73 sq.m. Ages 60-69 = 85 mL/min/1.73 sq.m. Ages 70+ = 75 mL/min/1.73 sq.m. Chronic Kidney Disease: Less than 60 mL/min/1.73 square meters End Stage Renal Disease: Less than 15 mL/min/1.73 square meters Performed By: #### H GMP #### [address] [address] #### CMP, GFR, ESR #### [address] [address] GFR 81 ml/min/1.73sqm Normal [facility] ([place]) Comment on above: Result Comment: GFR Population mean for , Non- Americans Ages 20-29 = 116 mL/min/1.73 sq.m. Ages 30-39 = 107 mL/min/1.73 sq.m. Ages 40-49 = 99 mL/min/1.73 sq.m. Ages 50-59 = 93 mL/min/1.73 sq.m. Ages 60-69 = 85 mL/min/1.73 sq.m. Ages 70+ = 75 mL/min/1.73 sq.m. Chronic Kidney Disease: Less than 60 mL/min/1.73 square meters End Stage Renal Disease: Less than 15 mL/min/1.73 square meters Performed By: #### H GMP #### [address] [address] #### CMP, GFR, ESR #### [address] [address] CMPon 06-18-2018 Albumin mass conc 3.8 G/dL Normal 3.5-5.0 [facility] ([place]) Comment on above: Performed By: #### H GMP #### [place] [address] #### CMP, GFR, ESR #### [address] [address] Albumin/Globulin mass ratio 1.0 {ratio} Low 1.1-2.5 [facility] ([place]) Comment on above: Performed By: #### H GMP #### [place] [address] #### CMP, GFR, ESR #### [address] [address] ALP enzyme act/vol 110 U/L Normal 40-135 [facility] ([place]) Comment on above: Performed By: #### H GMP #### [place] [address] #### CMP, GFR, ESR #### [address] [address] ALT enzyme act/vol 15 U/L Normal 10-35 [facility] ([place]) Comment on above: Performed By: #### H GMP #### [place] [id number] #### CMP, GFR, ESR #### [address] [address] AST enzyme act/vol 14 U/L Normal 10-40 [facility] ([place]) Comment on above: Performed By: #### H GMP #### [place] [address] #### CMP, GFR, ESR #### [address] [address] Bili Total 0.7 mg/dL Normal 0.2-1.0 [facility] ([place]) Comment on above: Performed By: #### H GMP #### [place] [address] #### CMP, GFR, ESR #### [address] [address] Calcium mass conc 9.1 mg/dL Normal 8.4-10.2 [facility] ([place]) Comment on above: Performed By: #### H GMP #### [address] [address] #### CMP, GFR, ESR #### [address] [address] Chloride molar conc 103 mmol/L Normal 98-107 [facility] [place] Comment on above: Performed By: #### H GMP #### [place] [id number] #### CMP, GFR, ESR #### [address] [address] CO2 molar conc 27 mmol/L Normal 22-29 [facility] ([place]) Comment on above: Performed By: #### H GMP #### [address] [address] #### CMP, GFR, ESR #### [place] [address] Creatinine mass conc 0.98 mg/dL Normal 0.55-1.02 [facility] ([place]) Comment on above: Performed By: #### H GMP #### [place] [id number] #### CMP, GFR, ESR #### [address] [address] Electrolyte Balance 10.0 mEq/L Normal [facility] ([place] Comment on above: Performed By: #### H GMP #### [place] [id number] #### CMP, GFR, ESR #### [address] [address] Globulin mass conc (S) 3.8 G/dL Normal [facility] ([place]) Comment on above: Performed By: #### H GMP #### [address] [address] #### CMP, GFR, ESR #### [address] [address] Glucose mass conc 81 mg/dL Normal 70-105 [facility] ([place]) Comment on above: Performed By: #### H GMP #### [address] [address] #### CMP, GFR, ESR #### [address] [address] Potassium molar conc 4.1 mmol/L Normal 3.5-5.1 [facility] ([place]) Comment on above: Performed By: #### H GMP #### [place] [address] #### CMP, GFR, ESR #### [address] [address] Protein mass conc 7.6 G/dL Normal 6.4-8.2 [facility] ([place]) Comment on above: Performed By: #### H GMP #### [place] [id number] #### CMP, GFR, ESR #### [address] [address] Sodium molar conc 140 mmol/L Normal 136-145 [facility] ([place]) Comment on above: Performed By: #### H GMP #### [address] [address] #### CMP, GFR, ESR #### [address] [address] Urea nitrogen mass conc 10 mg/dL Normal 7-18 [facility] ([place]) Comment on above: Performed By: #### H GMP #### [address] [address] #### CMP, GFR, ESR #### [address] [address] Urea nitrogen/Creatinine mass ratio 10 ratio Normal 7-27 [facility] ([place]) Comment on above: Performed By: #### H GMP #### [address] [address] #### CMP, GFR, ESR #### [address] [address] ESRon 06-18-2018 ESR Velocity (Bld) 28 mm/h High 0-20 [facility] ([place]) Comment on above: Performed By: #### H GMP #### [place] [address] #### CMP, GFR, ESR #### [place] [address] HGMPon 06-18-2018 Erythrocyte distribution width Ratio (RBC) 13.1 % Normal 11.5-14.5 [facility] ([place]) Comment on above: Performed By: #### H GMP #### [place] [address] #### CMP, GFR, ESR #### [place] [address] Hematocrit Volume Fraction (Bld) 41.7 % Normal 37.0-47.0 [facility] ([place]) Comment on above: Performed By: #### H GMP #### [place] [address] #### CMP, GFR, ESR #### [place] [address] Hemoglobin mass conc (Bld) 14.2 G/dL Normal 12.0-16.0 [facility] ([place]) Comment on above: Performed By: #### H GMP #### [place] [address] #### CMP, GFR, ESR #### [place] [address] MCH Entitic mass (RBC) 29.9 pg Normal 27.0-31.2 [facility] ([place]) Comment on above: Performed By: #### H GMP #### [place] [address] #### CMP, GFR, ESR #### [place] [address] MCHC mass conc (RBC) 34.1 G/dL Normal 33.0-37.0 [facility] ([place]) Comment on above: Performed By: #### H GMP #### [place] [address] #### CMP, GFR, ESR #### [address] [address] MCV Entitic volume (RBC) 87.6 fL Normal 80.0-94.0 [facility] ([place]) Comment on above: Performed By: #### H GMP #### [place] [id number] #### CMP, GFR, ESR #### [place] [address] Platelet mean volume Entitic volume (Bld) 8.2 fL Normal 7.4-10.4 [facility] ([place]) Comment on above: Performed By: #### H GMP #### [place] [id number] #### CMP, GFR, ESR #### [place] [address] Platelets #/vol (Bld) 406 10 3/mcL High 130-400 A [facility] ([place]) Comment on above: Performed By: #### H GMP #### [place] [id number] #### CMP, GFR, ESR #### [place] [address] RBC #/vol (Bld) 4.76 10 6/mcL Normal 4.20-5.40 [facility] ([place]) Comment on above: Performed By: #### H GMP #### [place] [id number] #### CMP, GFR, ESR #### [place] [address] WBC #/vol (Bld) 13.90 10 3/mcL High 4.60-10.80 [facility] ([place] Comment on above: Performed By: #### H GMP #### [place] [id number] #### CMP, GFR, ESR #### [place] [address] Vital Signs Date Time Vital Sign Value Performing Clinician Faci lity 12-17-2024 08:00-0400 Body temperature 97.9 [degF] Reginaldo Tiwari [employer]LINDER MACHINE OPERATOR-C Work Phone: [phone] [place] [address] 12-17-2024 08:00-0400 Diastolic blood pressure 88 mm[Hg] Reginaldo Tiwari [employer]LINDER MACHINE OPERATOR-C Work Phone: [phone] [place] [address] 12-17-2024 08:00-0400 Heart rate 83 /min Reginaldo Tiwari [employer]LINDER MACHINE OPERATOR-C Work Phone: [phone] [place] [address] 12-17-2024 08:00-0400 Respiratory rate 15 /min Reginaldo Tiwari CYLINDER MACHINE OPERATOR-C Work Phone: [phone] [place] [address] 12-17-2024 08:00-0400 SaO2% (BldA) [Mass fraction] 96 % Reginaldo Tiwari CYLINDER MACHINE OPERATOR-C Work Phone: [phone] [place] [address] 12-17-2024 08:00-0400 Systolic blood pressure 132 mm[Hg] Reginaldo Tiwari CYLINDER MACHINE OPERATOR-C Work Phone: [phone] [place] [address] 10-02-2024 08:20-0400 Body temperature 98.8 [degF] Reginaldo Tiwari CYLINDER MACHINE OPERATOR-C Work Phone: [phone])[phone] [place] [address] 10-02-2024 08:20-0400 Diastolic blood pressure 72 mm[Hg] Reginaldo Tiwari CYLINDER MACHINE OPERATOR-C Work Phone: 4(071)[phone] [place] [address] 10-02-2024 08:20-0400 Heart rate 83 /min Reginaldo Tiwari CYLINDER MACHINE OPERATOR-C Work Phone: [phone] [place] [address] 10-02-2024 08:20-0400 Respiratory rate 16 /min Reginaldo Tiwari CYLINDER MACHINE OPERATOR-C Work Phone: [phone] [place] [address] 10-02-2024 08:20-0400 SaO2% (BldA) [Mass fraction] 95 % Reginaldo Tiwari CYLINDER MACHINE OPERATOR-C Work Phone: [phone] [place] [address] 10-02-2024 08:20-0400 Systolic blood pressure 110 mm[Hg] Reginaldo Tiwari CYLINDER MACHINE OPERATOR-C Work Phone: [phone] [place] [address] 10-02-2024 07:55-0400 Body height 160.02 cm Reginaldo Tiwari CYLINDER MACHINE OPERATOR-C Work Phone: [facility] 03-26-2024 10:00-0500 Diastolic blood pressure 72 mm[Hg] Malvin Hussein MD Work Phone: [facility] 03-26-2024 10:00-0500 Systolic blood pressure 124 mm[Hg] Malvin Hussein MD Work Phone: [facility] 03-10-2024 09:04-0400 Body mass index (BMI) [Ratio] 31.58 kg/m2 Malvin Hussein MD Work Phone: [facility] 03-10-2024 09:04-0400 Body weight 83.46 kg Malvin Hussein MD Work Phone: [facility] 03-10-2024 09:04-0400 Diastolic blood pressure 62 mm[Hg] Mavlin Hussein MD Work Phone: [facility] 03-10-2024 09:04-0400 Systolic blood pressure 112 mm[Hg] Malvin Hussein MD Work Phone: [facility] 02-27-2024 09:50-0400 Body mass index (BMI) [Ratio] 31.76 kg/m2 Malvin Hussein MD Work Phone: [facility] 02-27-2024 09:50-0400 Body weight 83.92 kg Malvin Hussein MD Work Phone: [facility] 02-27-2024 09:50-0400 Diastolic blood pressure 74 mm[Hg] Malvin Hussein MD Work Phone: [facility] 02-27-2024 09:50-0400 Systolic blood pressure 132 mm[Hg] Malvin Hussein MD Work Phone: [facility] 08-17-2022 08:30-0400 Body height 160.02 cm CYLINDER MACHINE OPERATOR-C Reginaldo Tiwari CYLINDER MACHINE OPERATOR Work Phone: [facility] 08-17-2022 08:30-0400 Body mass index (BMI) [Ratio] 42 kg/m2 [employer]LINDER MACHINE OPERATOR-C Reginaldo Tiwari CYLINDER MACHINE OPERATOR Work Phone: [facility] 08-17-2022 08:30-0400 Body temperature 98.2 [degF] CYLINDER MACHINE OPERATOR-C Reginaldo Tiwari CYLINDER MACHINE OPERATOR Work Phone: [facility] 08-17-2022 08:30-0400 Body weight 107.78 kg CYLINDER MACHINE OPERATOR-C Reginaldo Tiwari CYLINDER MACHINE OPERATOR Work Phone: [facility] 08-17-2022 08:30-0400 Diastolic blood pressure 70 mm[Hg] CYLINDER MACHINE OPERATOR-C Reginaldo Tiwari CYLINDER MACHINE OPERATOR Work Phone: [facility] 08-17-2022 08:30-0400 Heart rate 90 /min CYLINDER MACHINE OPERATOR-C Reginaldo Tiwari CYLINDER MACHINE OPERATOR Work Phone: [facility] 08-17-2022 08:30-0400 Respiratory rate 17 /min CYLINDER MACHINE OPERATOR-C Reginaldo Tiwari CYLINDER MACHINE OPERATOR Work Phone: [facility] 08-17-2022 08:30-0400 SaO2% (BldA) [Mass fraction] 99 % CYLINDER MACHINE OPERATOR-C Reginaldo Tiwari CYLINDER MACHINE OPERATOR Work Phone: [facility] 08-17-2022 08:30-0400 Systolic blood pressure 124 mm[Hg] CYLINDER MACHINE OPERATOR-C Reginaldo Tiwari CYLINDER MACHINE OPERATOR Work Phone: [facility] 08-15-2022 09:02-0400 Body mass index (BMI) [Ratio] 42.5 kg/m2 CYLINDER MACHINE OPERATOR-C Reginaldo Tiwari CYLINDER MACHINE OPERATOR Work Phone: [facility] 08-15-2022 09:02-0400 Body temperature 98.1 [degF] CYLINDER MACHINE OPERATOR-C Reginaldo Tiwari CYLINDER MACHINE OPERATOR Work Phone: [facility] 08-15-2022 09:02-0400 Body weight 108.86 kg CYLINDER MACHINE OPERATOR-C Reginaldo Tiwari CYLINDER MACHINE OPERATOR Work Phone: [facility] 08-15-2022 09:02-0400 Diastolic blood pressure 80 mm[Hg] CYLINDER MACHINE OPERATOR-C Reginaldo Tiwari CYLINDER MACHINE OPERATOR Work Phone: [facility] 08-15-2022 09:02-0400 Heart rate 91 /min CYLINDER MACHINE OPERATOR-C Reginaldo Tiwari CYLINDER MACHINE OPERATOR Work Phone: [facility] 08-15-2022 09:02-0400 Respiratory rate 16 /min CYLINDER MACHINE OPERATOR-C Reginaldo Tiwari CYLINDER MACHINE OPERATOR Work Phone: [facility] 08-15-2022 09:02-0400 SaO2% (BldA) [Mass fraction] 99 % CYLINDER MACHINE OPERATOR-C Reginaldo Karie CYLINDER MACHINE OPERATOR Work Phone: [facility] 08-15-2022 09:02-0400 Systolic blood pressure 110 mm[Hg] CYLINDER MACHINE OPERATOR-C Reginaldo Tiwari CYLINDER MACHINE OPERATOR Work Phone: [facility] 05-17-2022 08:43-0500 Body temperature 95.2 [degF] Dr. Susan Rollins Work Phone: [facility] 05-17-2022 08:43-0500 Body weight 109.[address] Susan Rollins Work Phone: [facility] 05-17-2022 08:43-0500 Diastolic blood pressure 76 mm[Hg] Dr. Susan Rollins Work Phone: [facility] 05-17-2022 08:43-0500 Heart rate 81 /min Dr. Susan Rollins Work Phone: [facility] 05-17-2022 08:43-0500 Respiratory rate 16 /min Dr. Susan Rollins Work Phone: [facility] 05-17-2022 08:43-0500 SaO2% (BldA) [Mass fraction] 99 % Dr. Susan Rollins Work Phone: [facility] 05-17-2022 08:43-0500 Systolic blood pressure 114 mm[Hg] Dr. Susan Rollins Work Phone: [facility] 03-01-2022 08:11-0400 Body height 160.[address] Susan Rollins Work Phone: [facility] 03-01-2022 08:11-0400 Body mass index (BMI) [Ratio] 41.6 kg/m2 Dr. Susan Rollins Work Phone: [facility] 03-01-2022 08:11-0400 Body temperature 96.6 [degF] Dr. Susan Rollins Work Phone: [facility] 03-01-2022 08:11-0400 Body weight 106.[address] Susan Rollins Work Phone: [facility] 03-01-2022 08:11-0400 Diastolic blood pressure 70 mm[Hg] Dr. Susan Rollins Work Phone: [facility] 03-01-2022 08:11-0400 Heart rate 95 /min Dr. Susan Rollins Work Phone: [facility] 03-01-2022 08:11-0400 Respiratory rate 16 /min Dr. Suasn Rollins Work Phone: [facility] 03-01-2022 08:11-0400 SaO2% (BldA) [Mass fraction] 98 % Dr. Susan Rollins Work Phone: [facility] 03-01-2022 08:11-0400 Systolic blood pressure 102 mm[Hg] Dr. Susan Rollins Work Phone: [facility] 02-16-2022 08:41-0400 Diastolic blood pressure 80 mm[Hg] Dr. Susan Rollins Work Phone: [facility] 02-16-2022 08:41-0400 Heart rate 93 /min Dr. Susan Rollins Work Phone: [facility] 02-16-2022 08:41-0400 SaO2% (BldA) [Mass fraction] 99 % Dr. Susan Rollins Work Phone: [facility] 02-16-2022 08:41-0400 Systolic blood pressure 126 mm[Hg] Dr. Susan Rollins Work Phone: [facility] 09-20-2021 08:18-0400 Body height 160.[address] Susan Rollins Work Phone: [facility] Work Phone: 09-20-2021 08:18-0400 Body mass index (BMI) [Ratio] 39.4 kg/m2 Dr. Susan Rollins Work Phone: [facility] Work Phone: 09-20-2021 08:18-0400 Body temperature 97 [degF] Dr. Susan Rollins Work Phone: [facility] Work Phone: 09-20-2021 08:18-0400 Body weight 101.[address] Susan Rollins Work Phone: [facility] Work Phone: 09-20-2021 08:18-0400 Diastolic blood pressure 64 mm[Hg] Dr. Susan Rollins Work Phone: [facility] Work Phone: 09-20-2021 08:18-0400 Heart rate 92 /min Dr. Susan Rollins Work Phone: [facility] Work Phone: 09-20-2021 08:18-0400 Respiratory rate 14 /min Dr. Susan Rollins Work Phone: [facility] Work Phone: 09-20-2021 08:18-0400 SaO2% (BldA) [Mass fraction] 99 % Dr. Susan Rollins Work Phone: [facility] Work Phone: 09-20-2021 08:18-0400 Systolic blood pressure 106 mm[Hg] Dr. Susan Rollins Work Phone: [facility] Work Phone: 08-16-2021 08:28-0400 Body temperature 97.8 [degF] Dr. Susan Rollins Work Phone: [facility] Work Phone: 08-16-2021 08:28-0400 Body weight 101.[address] Susan Rollins Work Phone: [facility] Work Phone: 08-16-2021 08:28-0400 Diastolic blood pressure 78 mm[Hg] Dr. Susan Rollins Work Phone: [facility] Work Phone: 08-16-2021 08:28-0400 Heart rate 90 /min Dr. Susan Rollins Work Phone: [facility] Work Phone: 08-16-2021 08:28-0400 Respiratory rate 14 /min Dr. Susan Rollins Work Phone: [facility] Work Phone: 08-16-2021 08:28-0400 SaO2% (BldA) [Mass fraction] 99 % Dr. Susan Rollins Work Phone: [facility] Work Phone: 08-16-2021 08:28-0400 Systolic blood pressure 112 mm[Hg] Dr. Susan Rollins Work Phone: [facility] Work Phone: 06-28-2021 08:37-0500 Body mass index (BMI) [Ratio] 39.4 kg/m2 Dr. Susan Rollins Work Phone: [facility] Work Phone: 06-28-2021 08:37-0500 Body temperature 96.5 [degF] Dr. Susan Rollins Work Phone: [facility] Work Phone: 06-28-2021 08:37-0500 Body weight 101.[address] Susan Rollins Work Phone: [facility] Work Phone: 06-28-2021 08:37-0500 Diastolic blood pressure 70 mm[Hg] Dr. Susan Rollins Work Phone: [facility] Work Phone: 06-28-2021 08:37-0500 Heart rate 99 /min Dr. Susan Rollins Work Phone: [facility] Work Phone: 06-28-2021 08:37-0500 Respiratory rate 16 /min Dr. Susan oRllins Work Phone: [facility] Work Phone: 06-28-2021 08:37-0500 SaO2% (BldA) [Mass fraction] 98 % Dr. Susan Rollins Work Phone: [facility] Work Phone: 06-28-2021 08:37-0500 Systolic blood pressure 118 mm[Hg] Dr. Susan Rollins Work Phone: [facility] Work Phone: 06-27-2021 07:53-0500 Body weight 102.[address] Susan Rollins Work Phone: [facility] Work Phone: 06-27-2021 07:53-0500 Diastolic blood pressure 80 mm[Hg] Dr. Susan Rollins Work Phone: [facility] Work Phone: 06-27-2021 07:53-0500 Heart rate 85 /min Dr. Susan Rollins Work Phone: [facility] Work Phone: 06-27-2021 07:53-0500 SaO2% (BldA) [Mass fraction] 99 % Dr. Susan Rollins Work Phone: [facility] Work Phone: 06-27-2021 07:53-0500 Systolic blood pressure 106 mm[Hg] Dr. Susan Rollins Work Phone: [facility] Work Phone: Encounters Encounter Date Encounter Type Care Provider Facility Start: 12-17-2024 End: 12-17-2024 Patient encounter procedure Rahul Ross DC -[facility] Work Phone: Start: 12-17-2024 End: 12-17-2024 ambulatory Reginaldo Karie CYLINDER MACHINE OPERATOR-C Work Phone: -[facility] Start: 10-08-2024 End: 10-08-2024 ambulatory Malvin Hussein MD Work Phone: OB/Gynecology Comment on above: Break through bleedi ng with copper IUD. Start: 10-02-2024 End: 10-02-[address] Cristofer Dominguez MD -[facility] Start: 10-02-2024 End: 10-02-2024 ambulatory Reginaldo Arzolader CYLINDER MACHINE OPERATOR-C Work Phone: [facility] Work Phone: Start: 04-08-2024 End: 04-08-2024 ambulatory Reginaldo Tiwari VSC Facility:[facility] Start: 04-04-2024 End: 04-08-2024 Orders Only Peace Kim MD Work Phone: OB/Gynecology Comment on above: Atypical squamous ce lls cannot exclude high grade squamous intraepithelial lesion on cytologic smear of cervix (ASC-H) (Primary Dx); Cervical high risk HPV (human papillomavirus) test positive Results Start: 03-26-2024 End: 03-26-2024 ambulatory MALVIN HUSSEIN Facility:[facility] Start: 03-26-2024 End: 03-26-2024 Patient encounter procedure Malvin Hussein MD Work Phone: OB/Gynecology Comment on above: Cervical high risk H PV (human papillomavirus) test positive (Primary Dx); Encounter for screening for malignant neoplasm of cervix; Encounter for repeat Papanicolaou smear of cervix due to previous unsatisfactory results Start: 03-13-2024 End: 03-13-2024 ambulatory Reginaldo Tiwari [facility] Facility:[facility] Start: 03-10-2024 End: 03-10-2024 ambulatory MALVIN HUSSEIN Facility:[facility] Start: 03-10-2024 End: 03-10-2024 Patient encounter procedure Malvin Hussein MD Work Phone: OB/Gynecology Comment on above: Abnormal ultrasound of bladder (Primary Dx) Start: 03-06-2024 End: 03-06-2024 ambulatory [facility] Work Phone: OB/Gynecology Start: 03-06-2024 End: 03-06-2024 Patient encounter procedure Us [facility] OB/Gynecology Start: 02-27-2024 End: 02-27-2024 ambulatory MALVIN HUSSEIN Facility:[facility] Start: 02-27-2024 End: 02-27-2024 Patient encounter procedure Malvin Hussein MD Work Phone: OB/Gynecology Comment on above: Screening for malign ant neoplasm of cervix (Primary Dx); Special screening examination for human papillomavirus (HPV); Abnormal uterine bleeding Start: 01-23-2024 End: 01-23-2024 ambulatory Reginaldo Tiwari [facility] Facility:[facility] Start: 12-26-2023 End: 12-26-2023 ambulatory Reginaldo Tiwari [facility] Facility:[facility] Start: 08-17-2022 End: 08-17-2022 Patient encounter procedure CYLINDER MACHINE OPERATOR-C Reginaldo Tiwari CYLINDER MACHINE OPERATOR Work Phone: [facility] Start: 08-15-2022 End: 08-15-2022 ambulatory CYLINDER MACHINE OPERATOR-C Reginaldo Tiwari CYLINDER MACHINE OPERATOR Work Phone: [facility] Work Phone: Start: 08-15-2022 End: 08-15-2022 Patient encounter procedure CYLINDER MACHINE OPERATOR-C Reginaldo Tiwari CYLINDER MACHINE OPERATOR Work Phone: [facility] Start: 05-17-2022 End: 05-17-[address] Susan Rollins Work Phone: [facility] Work Phone: Start: 05-17-2022 End: 05-17-[address] [facility] Roll[facility] Start: 05-17-2022 End: 05-17-[address] Susan Rollins Work Phone: [facility] Start: 03-01-2022 End: 03-01-[address] Suasn Rollins Work Phone: [facility] Start: 02-16-2022 End: 02-16-[address] Susan Rollins Work Phone: [facility] Start: 10-14-2021 Telephone encounter Van michaels DO Work Phone: Hematology/Oncology Comment on above: NEW PATIENT APPOINTM ENT Start: 09-27-2021 End: 09-27-[address] Susan Rollins [facility] Start: 09-20-[address] Anali Rollins Work Phone: [facility] Start: 09-20-2021 End: 09-20-2021 Encounter for general adult medical examination without abnormal findings Dr. Susan Rollins Work Phone: [facility] Start: 09-20-2021 End: 09-20-[address] Susan Rollins Work Phone: [facility] Start: 08-16-2021 End: 08-16-[address] Susan Rollins Work Phone: [facility] Start: 06-28-2021 End: 06-28-[address] Susan Rollins Work Phone: [facility] Start: 06-27-2021 End: 06-27-[address] Susan Rollins Work Phone: [facility] Start: 06-21-2018 End: 06-22-2018 Patient encounter procedure DEVAUGHN JARVIS Facility:[facility] Start: 06-18-2018 End: 06-19-2018 Patient encounter procedure DEVAUGHN JARVIS Facility:[facility] Procedures Date Procedure Procedure Detail Performing Clinician Start: 10-02-2024 Plain x-ray of hand Reginaldo Arzolader CYLINDER MACHINE OPERATOR-C Work Phone: Start: 10-02-2024 Plain x-ray of wrist Reginaldo Tiwari CYLINDER MACHINE OPERATOR-C Work Phone: Start: 03-10-2024 Urnls dip stick/tablet reagent auto microscopy Malvin Hussein MD Work Phone: Start: 03-06-2024 Us pelvic nonobstetric real-time image complete Malvin Hussein MD Work Phone: Start: 09-24-2008 End: 04-30-2009 H/O: section Previous delivery, antepartum condition or complication Malvin Hussein MD Work Phone: Plan of Treatment Date Care Activity Detail Author Start: 03-26-2025 Screening for malign ant neoplasm of cervix Cervical Cancer Screening [facility] Start: 02-26-2025 Screening for malign ant neoplasm of cervix Cervical Cancer Screening [facility] Start: 01-12-2025 Influenza vaccination Influenz a Vaccine (Season Ended) [facility] Start: 10-02-2024 Plain x-ray of hand Hand Min 3 Views [facility] Start: 10-02-2024 Plain x-ray of wrist Wrist min 3 Vie ws [facility] Start: 10-02-2024 XR Hand GE 3 Views [facility] Start: 10-02-2024 XR Wrist GE 3 Views [facility] Start: 03-19-2024 End: 03-19-2024 Patient encounter procedure 03/19/2024 9:30 AM EST Office Visit OB/Gynecology [address] [place] [id number] Malvin Hussein MD [address] [place] [id number] pap only- last pap unsatisfactory OB/Gynecology Comment on above: pap only- last pap u nsatisfactory Start: 03-10-2024 End: 03-10-2024 Patient encounter procedure 03/10/2024 8:50 AM EDT Office Visit OB/Gynecology [address] [place] [id number] Malvin Hussein MD [address] [place] [id number] f/up OB/Gynecology Comment on above: f/up Start: 02-29-2024 End: 02-29-2024 ambulatory 02/29/2024 8:00 AM EDT Procedure OB/Gynecology [address] [place] [address] Abnormal uterine bleeding [N93.9] OB/Gynecology Comment on above: Abnormal uterine ble eding [N93.9] Start: 02-27-2024 End: 02-26-2025 US Pelvis PELVIC US [facility] Routine Abnormal uterine bleeding Expected: 02/27/2024, Expires: 02/26/2025 [facility] Work Phone: Comment on above: Expected: 02/27/2024 , Expires: 02/26/2025 Start: 01-13-2024 Covid-19 Vaccine ( season) Covid-19 Vaccine ( season) [facility] Start: 01-13-2024 Influenza vaccination Influenza Vacc ine (#1) [facility] Start: 01-12-2022 Influenza vaccination INFLUENZA (#1) [facility] Start: 09-27-2021 Patient referral [facility] Work Phone: Start: 06-19-2021 HPV TESTING HPV TESTING [facility] Start: 06-19-2021 PAP TESTING PAP TESTING [facility] Start: 06-19-2021 Screening for malign ant neoplasm of cervix Cervical Cancer Screening [facility] Start: 05-14-2021 DEPRESSION ASSESSMENT DEPRESSION ASS ESSMENT [facility] Start: 12-07-2006 Hepatitis B Vaccine (1 of 3 - 19+ 3-dose series) Hepatitis B Vaccine (1 of 3 - 19+ 3-dose series) [facility] Start: 12-07-2005 Anxiety Screening Anxiety Screening [facility] Start: 12-07-2005 Depression Screening Depression Scre ening [facility] Start: 12-07-1998 Urine microalbumin profile [facility] Start: 06-09-1988 COVID-19 VACCINE (#1) COVID-19 VACCI NE (#1) [facility] Start: 1987 HEPATITIS B (1 of 3 - 3-dose series) HEPATITIS B (1 of 3 - 3-dose series) [facility] Start: 1987 HPV Vaccine: Recomme nded Based On Risk HPV Vaccine: Recommended Based On Risk [facility] CBC W Auto Different ial panel - Blood [facility] COLPOSCOPY COLPOSCOPY [facility] Routine Atypical squamous cells cannot exclude high grade squamous intraepithelial lesion on cytologic smear of cervix (ASC-H) Cervical high risk HPV (human papillomavirus) test positive Ordered: 04/04/2024 [facility] Work Phone: Comment on above: Ordered: 04/04/2024 Lipid 1996 panel - S nico or Plasma [facility] PAP TEST PAP TEST Lab [facility] Screening for malignant neoplasm of cervix Special screening examination for human papillomavirus (HPV) Ordered: 02/27/2024 [facility] Comment on above: Ordered: 02/27/2024 PAP TEST PAP TEST Lab [facility] Cervical high risk HPV (human papillomavirus) test positive Encounter for screening for malignant neoplasm of cervix Encounter for repeat Papanicolaou smear of cervix due to previous unsatisfactory results 03/26/2024 11:58 AM EST [facility] Work Phone: Patient referral [facility] Work Phone: Thyroid stimulating hormone measurement [facility] Immunizations Immunization Date Immunization Notes Care Provider Raffi borrego 08-18-1993 diphtheria and tetan us toxoids, adsorbed for pediatric use Van Avelinai DO Work Phone: [facility] 08-18-1993 trivalent poliovirus vaccine, live, oral Van Quani DO Work Phone: [facility] 12-16-1992 diphtheria, tetanus toxoids and acellular pertussis vaccine Van Avelinai DO Work Phone: [facility] 12-16-1992 trivalent poliovirus vaccine, live, oral Van Quani DO Work Phone: [facility] 04-12-1988 diphtheria, tetanus toxoids and acellular pertussis vaccine Van Avelinai DO Work Phone: [facility] 04-12-1988 trivalent poliovirus vaccine, live, oral Van Hammond DO Work Phone: [facility] 02-07-1988 diphtheria, tetanus toxoids and acellular pertussis vaccine Van Avelinai DO Work Phone: [facility] Payers Date Payer Category Payer Self-pay [id number] 2015 [employer] BLUE CARD PPO OOS Member Subscriber Plan / Payer (Effective 2015-Present) Name: Hitesh Krueger Relation to Subscriber: Self Name: Hitesh Krueger Payer ID: [id number] (NAIC) Type: PPO Address: [address] [place] [id number] 2015 Unknown [employer]M BLUE CARD PPO OOS [id number] 2015-Present [phone] [address] [place] [id number] PPO [id number] 2015 Unknown [id number] 1987 Unknown [id number] 1987 Unknown [id number] Unknown [id number] Unknown [id number] Unknown [id number] Unknown [id number] Unknown [id number] Unknown [id number] Unknown [id number] Social History Date Type Detail Facility Start: 09-27-2021 End: 08-17-2022 Tobacco smoking status LAIS Unknown if ever smoked [facility] Start: 06-02-2020 None [facility] Start: 06-02-2020 Spouse/ Signif icant Other [facility] Start: 1985 Sex Assigned At Female [facility] Start: 03-22-2015 Tobacco smoking stat us LAIS Smokes tobacco daily [facility] Start: 04-22-2004 End: 04-22-2008 History of tobacco use Cigarette Smoker [facility] Start: 03-22-2015 End: 02-27-2024 Cigarettes smoked current (pack per day) - Reported 0.5 [facility] Start: 03-22-2015 End: 02-27-2024 Tobacco use and exposure Smokeless tobacco non-user [facility] Start: 11-19-2020 End: 03-26-2024 Alcohol intake Current non-drinker of alcohol (finding) [facility] Start: 1985 Sex Assigned At Not on file [facility] Start: 02-27-2024 [facility] Start: 04-22-2004 End: 04-22-2008 History of tobacco use Current smoker [facility] Start: 02-27-2024 End: 03-26-2024 Tobacco use panel [facility] National Score (1-10 0), lower number is lower risk 66 [facility] Start: 10-02-2024 Tobacco smoking stat [facility] Current Light tobacco smoker [facility] Functional Status Date Assessment Result Facility 12-01-2014 Are you deaf, or do you have serious difficulty hearing No 12/01/2014 3:28 PM EDT Kaylah Pelletier Ma [facility] Work Phone: 12-01-2014 Are you blind, or do you have serious difficulty seeing, even when wearing glasses No 12/01/2014 3:28 PM Kaylah Montaño Ma [facility] 12-01-2014 Do you have serious difficulty walking or climbing stairs No 12/01/2014 3:28 PM EDT Kaylah Pelletier Ma [facility] 12-01-2014 Do you have difficul ty dressing or bathing No 12/01/2014 3:28 PM EDT Kaylah Pelletier Ma [facility] 12-01-2014 Because of a physica l, mental, or emotional condition, do you have difficulty doing errands alone such as visiting a physician's office or shopping No 12/01/2014 3:28 PM Kaylah Montaño Ma [facility] Mental Status Date Assessment Result Facility 12-01-2014 Because of a physica l, mental, or emotional condition, do you have serious difficulty concentrating, remembering, or making decisions No 12/01/2014 3:28 PM EDT Kaylah Pelletier Ma [facility] Clinical Notes 06-18-2009 to 10-08-2024 Telephone Encounter - Peace Kim MD - 10/08/2024 4:38 PM EDTTelephone Encounter - Peace Kim MD - 10/08/2024 4:38 PM EDT Note Date & Type Note Facility 05-28-2025 Telephone encounter Note Form atting of this note might be different from the original. appointment to discuss w/ any provider. Can be vv.. Peace Kim MD [facility] 10-08-2024 Miscellaneous Notes Formattin g of this note might be different from the original. appointment to discuss w/ any provider. Can be vv.. Peace Kim MD documented in this encounter [facility] 10-02-2024 Evaluation note Diagnosis Onset Date Resolution Contusion of left hand including fingers acute October 02, 2024 7:51am [employer] Work Phone: [phone] Telephone encounter Note* Telephone Encounter - Mandeep Angeles RN - 04/08/2024 4:21 PM EST Left message for patient reminding her mychart message was sent to her on 04/04/24 and to call office to get appointment scheduled. Mychart message was sent to Pt on 04/04/24 and Pt viewed on 04/04/24. Mandeep Angeles RN [facility]11-26-2024 Miscellaneous Notes* Telephone Encounter - Mandeep Angeles RN - 04/08/2024 4:21 PM EST Left message for patient reminding her mychart message was sent to her on 04/04/24 and to call office to get appointment scheduled. Mychart message was sent to Pt on 04/04/24 and Pt viewed on 04/04/24. Mandeep Angeles RN * Telephone Encounter - Mandeep Angeles RN - 04/04/2024 2:39 PM EST Left message for patient to call office or view mychart message and call office to get appt scheduled. Mandeep Angeles RN * Telephone Encounter - Mandeep Angeles RN - 04/04/2024 2:39 PM EST ----- Message from Peace Kim MD sent at 04/04/2024 1:21 PM EST ----- Please schedule colp. Mychart message sent. [facility] * Telephone Encounter - Mandeep Angeles RN - 04/04/2024 2:39 PM EST Left message for patient to call office or view mychart message and call office to get appt scheduled. Mandeep Angeles RN [facility]11-[facility] Telephone encounter Note* Telephone Encounter - Mandeep Angeles RN - 04/04/2024 2:39 PM EST ----- Message from Peace Kim MD sent at 04/04/2024 1:21 PM EST ----- Please schedule colp. Mychart message sent. [facility]11-[facility] NoteHNO ID: [id number] Author: MALVIN HUSSEIN MD Service: ? Author Type: Physician Type: Progress Notes Filed: 04/08/2024 12:58 Note Text: Travel Clerk offered: Patient accepts, visit chaperoned by Michelle whitley. Hitesh Krueger is a 38 year old female who presents for paponly with hx of abnormal pap.. 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 Vitamin D deficiency PAST SURGICAL HISTORY Procedure Laterality Date DELIVERY ONLY , low cervical X 2 CONIZATION CERVIX W/WO DANDC RPR ELTRD EXC 2007 LEEP-Cervix with only mild dysplasia found S LASER CO2 03/28 KELLEN III TONSILLECTOMY PRIMARY/SECONDARY Tonsillectomy FAMILY HISTORY Problem Relation Age of Onset Heart Mother Hypertension Mother Arthritis Father Emphysema Paternal Grandmother Social History Tobacco Use Smoking status: Former Current packs/day: 0.00 Average packs/day: 0.5 packs/day for 4.0 years (2.0 ttl pk-yrs) Types: Cigarettes Start date: 04/22/2004 Quit date: 04/22/2008 Years since quittin.9 Smokeless tobacco: Never Vaping Use Vaping status: Never Used Substance Use Topics Alcohol use: No Drug use: Not Currently Current Outpatient Medications Medication Sig WEGOVY 2.4 mg/0.75 mL pen injector Inject 2.4 mg subcutaneously one time a week. VITAMIN D2 1,250 mcg (50,000 unit) capsule Take 1 capsule by mouth one time a week. Amphetamine-Dextroamphetamine (ADDERALL) 30 mg tablet Take 30 mg by mouth once daily. busPIRone (BUSPAR) 5 mg tablet Take by mouth. (Patient not taking: Reported on 02/27/2024) DUREZOL 0.05 % (Patient not taking: Reported on 02/27/2024) SUMAtriptan (IMITREX) 100 mg tablet take 1 (ONE) tab BY MOUTH at onset of headache; if no relief, may repeat 1 (ONE) tab after at least 2 (TWO) HOURS; max = 2 (TWO) tabs/24 GWENDOLYN (Patient not taking: Reported on 02/27/2024) SUMAtriptan (IMITREX) 50 mg tablet Take one tablet every two hours as needed for headache. Max 2 tablets per day. (Patient not taking: Reported on 02/27/2024) topiramate (TOPAMAX) 100 mg tablet Take 100 mg by mouth twice daily. (Patient not taking: Reported on 02/27/2024) ibuprofen (MOTRIN) 600 mg tablet Take 1 tablet by mouth every 6 hours as needed. (Patient taking differently: Take 600 mg by mouth every 6 hours.) buPROPion XL (WELLBUTRIN XL) 150 mg 24 hr tablet Take 150 mg by mouth once daily. (Patient not taking: Reported on 02/27/2024) No current facility-administered medications for this visit. Allergies As of Date: 03/26/2024 Allergen Noted Reaction ADHESIVE TAPE (ROSINS) 05/23/2008 Rash, Swelling, and Itching INDERAL [PROPRANOLOL] 11/19/2020 Vomiting LATEX 11/09/2011 Rash Fully Assessed 03/10/2024 REVIEW OF SYSTEMS Abdomen: No bloating, early satiety, indigestion, or increased flatulence. No abdominal pain, nausea, vomiting, diarrhea, or constipation. Bladder: No dysuria, gross hematuria, urinary frequency, urinary urgency, or incontinence. Breast: No breast lumps, nipple d/c, overlying skin changes, redness or skin retraction. Expanded ROS: N/A Allergies and current medication updated:Yes SENSITIVE EXAM: The sensitive examination was discussed with the Patient or Patient's Authorized Vice President Education. As applicable, any other physician, advance practice provider, medical student, or other health professional student that will be observing or involved in the sensitive examination for educational or training purposes was discussed with the Patient or Authorized Vice President Education. The Patient or Authorized Vice President Education has agreed to proceed with the sensitive examination. (Sensitive examination includes inspection and/or palpation of the breasts, pelvis, prostate and anorectal regions). EXAM: LMP 02/10/2024 GENERAL: pleasant, female in no apparent distress PELVIC: external genitalia normal, normal Bartholin's glands, urethra, [place]'s glands, no vulvar lesions, no cervical lesions, good vaginal support, physiologic discharge present, normal appearing perineal body and perianal region, paraguard string in place BIMANUAL: uterus normal size, shape and consistency, no adnexal masses, non-tender, and no cervical motion tenderness ASSESSMENT AND PLAN: Pap performed Alternatives to paragrd discussed. Assessment AND Plan Encounter for repeat Papanicolaou smear of cervix due to previous unsatisfactory results Orders: P (more content not included)...[facility]11-13-2024 History of Present illness Narrative* Malvin Hussein MD - 03/26/2024 9:40 AM EST Travel Clerk offered: Patient accepts, visit chaperoned by Michelle whitley. Hitesh Krueger is a 38 year old female who presents for paponly with hx of abnormal pap.. 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 Vitamin D deficiency PAST SURGICAL HISTORY Procedure Laterality Date DELIVERY ONLY , low cervical X 2 CONIZATION CERVIX W/WO D&C RPR ELTRD EXC 2007 LEEP-Cervix with only mild dysplasia found S LASER CO2 03/28 KELLEN III TONSILLECTOMY PRIMARY/SECONDARY <AGE 14 Tonsillectomy FAMILY HISTORY Problem Relation Age of Onset Heart Mother Hypertension Mother Arthritis Father Emphysema Paternal Grandmother Social History Tobacco Use Smoking status: Former Current packs/day: 0.00 Average packs/day: 0.5 packs/day for 4.0 years (2.0 ttl pk-yrs) Types: Cigarettes Start date: 04/22/2004 Quit date: 04/22/2008 Years since quittin.9 Smokeless tobacco: Never Vaping Use Vaping status: Never Used Substance Use Topics Alcohol use: No Drug use: Not Currently Current Outpatient Medications Medication Sig WEGOVY 2.4 mg/0.75 mL pen injector Inject 2.4 mg subcutaneously one time a week. VITAMIN D2 1,250 mcg (50,000 unit) capsule Take 1 capsule by mouth one time a week. Amphetamine-Dextroamphetamine (ADDERALL) 30 mg tablet Take 30 mg by mouth once daily. busPIRone (BUSPAR) 5 mg tablet Take by mouth. (Patient not taking: Reported on 02/27/2024) DUREZOL 0.05 % (Patient not taking: Reported on 02/27/2024) SUMAtriptan (IMITREX) 100 mg tablet take 1 (ONE) tab BY MOUTH at onset of headache; if no relief, may repeat 1 (ONE) tab after at least 2 (TWO) HOURS; max = 2 (TWO) tabs/24 GWENDOLYN (Patient not taking: Reported on 02/27/2024) SUMAtriptan (IMITREX) 50 mg tablet Take one tablet every two hours as needed for headache. Max 2 tablets per day. (Patient not taking: Reported on 02/27/2024) topiramate (TOPAMAX) 100 mg tablet Take 100 mg by mouth twice daily. (Patient not taking: Reported on 02/27/2024) ibuprofen (MOTRIN) 600 mg tablet Take 1 tablet by mouth every 6 hours as needed. (Patient taking differently: Take 600 mg by mouth every 6 hours.) buPROPion XL (WELLBUTRIN XL) 150 mg 24 hr tablet Take 150 mg by mouth once daily. (Patient not taking: Reported on 02/27/2024) No current facility-administered medications for this visit. Allergies As of Date: 03/26/2024 Allergen Noted Reaction ADHESIVE TAPE (ROSINS) 05/23/2008 Rash, Swelling, and Itching INDERAL [PROPRANOLOL] 11/19/2020 Vomiting LATEX 11/09/2011 Rash Fully Assessed 03/10/2024 REVIEW OF SYSTEMS Abdomen: No bloating, early satiety, indigestion, or increased flatulence. No abdominal pain, nausea, vomiting, diarrhea, or constipation. Bladder: No dysuria, gross hematuria, urinary frequency, urinary urgency, or incontinence. Breast: No breast lumps, nipple d/c, overlying skin changes, redness or skin retraction. Expanded ROS: N/A Allergies and current medication updated:Yes SENSITIVE EXAM: The sensitive examination was discussed with the Patient or Patient's Authorized Vice President Education. As applicable, any other physician, advance practice provider, medical student, or other health professional student that will be observing or involved in the sensitive examination for educational or training purposes was discussed with the Patient or Authorized Vice President Education. The Patient or Authorized Vice President Education has agreed to proceed with the sensitive examination. (Sensitive examination includes inspection and/or palpation of the breasts, pelvis, prostate and anorectal regions). EXAM: LMP 02/10/2024 GENERAL: pleasant, female in no apparent distress PELVIC: external genitalia normal, normal Bartholin's glands, urethra, [place]'s glands, no vulvar lesions, no cervical lesions, good vaginal support, physiologic discharge present, normal appearing perineal body and perianal region, paraguard string in place BIMANUAL: uterus normal size, shape and consistency, no adnexal masses, non- tender, and no cervicalmotion tenderness ASSESSMENT AND PLAN: Pap performed Alternatives to paragrd discussed. Assessment & Plan ftft re contraceptive counselling ~ 30 min Malvin Hussein MD documented [facility] NoteHNO ID: [id number] Author: MALVIN HUSSEIN MD Service: ? Author Type: Physician Type: Progress Notes Filed: 03/14/2024 10:55 Note Text: Travel Clerk offered: Patient accepts, visit chaperoned by Michelle Whitley. Hitesh Krueger is a 38 year old female who presents for problem visit to review ultrasound and discuss debris in urine on ultrasound.. HPI: HMB resolved, Hx of HGSIL/Leep and recent PAP and HPV returned unsatisfactory for evaluation and + High risk HPV.. 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 Vitamin D deficiency PAST SURGICAL HISTORY Procedure Laterality Date DELIVERY ONLY , low cervical X 2 CONIZATION CERVIX W/WO DANDC RPR ELTRD EXC 2007 LEEP-Cervix with only mild dysplasia found S LASER CO2 03/28 KELLEN III TONSILLECTOMY PRIMARY/SECONDARY Tonsillectomy FAMILY HISTORY Problem Relation Age of Onset Heart Mother Hypertension Mother Arthritis Father Emphysema Paternal Grandmother Social History Tobacco Use Smoking status: Former Current packs/day: 0.00 Average packs/day: 0.5 packs/day for 4.0 years (2.0 ttl pk-yrs) Types: Cigarettes Start date: 04/22/2004 Quit date: 04/22/2008 Years since quittin.8 Smokeless tobacco: Never Vaping Use Vaping status: Never Used Substance Use Topics Alcohol use: No Drug use: Not Currently Current Outpatient Medications Medication Sig WEGOVY 2.4 mg/0.75 mL pen injector Inject 2.4 mg subcutaneously one time a week. VITAMIN D2 1,250 mcg (50,000 unit) capsule Take 1 capsule by mouth one time a week. Amphetamine-Dextroamphetamine (ADDERALL) 30 mg tablet Take 30 mg by mouth once daily. busPIRone (BUSPAR) 5 mg tablet Take by mouth. (Patient not taking: Reported on 02/27/2024) DUREZOL 0.05 % (Patient not taking: Reported on 02/27/2024) SUMAtriptan (IMITREX) 100 mg tablet take 1 (ONE) tab BY MOUTH at onset of headache; if no relief, may repeat 1 (ONE) tab after at least 2 (TWO) HOURS; max = 2 (TWO) tabs/24 GWENDOLYN (Patient not taking: Reported on 02/27/2024) SUMAtriptan (IMITREX) 50 mg tablet Take one tablet every two hours as needed for headache. Max 2 tablets per day. (Patient not taking: Reported on 02/27/2024) topiramate (TOPAMAX) 100 mg tablet Take 100 mg by mouth twice daily. (Patient not taking: Reported on 02/27/2024) ibuprofen (MOTRIN) 600 mg tablet Take 1 tablet by mouth every 6 hours as needed. (Patient taking differently: Take 600 mg by mouth every 6 hours.) buPROPion XL (WELLBUTRIN XL) 150 mg 24 hr tablet Take 150 mg by mouth once daily. (Patient not taking: Reported on 02/27/2024) No current facility-administered medications for this visit. Allergies As of Date: 03/10/2024 Allergen Noted Reaction ADHESIVE TAPE (ROSINS) 05/23/2008 Rash, Swelling, and Itching INDERAL [PROPRANOLOL] 11/19/2020 Vomiting LATEX 11/09/2011 Rash Fully Assessed 11/19/2020 REVIEW OF SYSTEMS Abdomen: No bloating, early satiety, indigestion, or increased flatulence. No abdominal pain, nausea, vomiting, diarrhea, or constipation. Bladder: No dysuria, gross hematuria, urinary frequency, urinary urgency, or incontinence. Breast: No breast lumps, nipple d/c, overlying skin changes, redness or skin retraction. Expanded ROS: N/A Allergies and current medication updated:Yes SENSITIVE EXAM: Sensitive exam not performed. EXAM: LMP 02/10/2024 GENERAL: pleasant, female in no apparent distress deferred / declined ASSESSMENT AND PLAN: Assessment AND Plan Encounter for screening for malignant neoplasm of cervix Rescheduled for pap UA submitted interested in HPV vaccine HPV and abnormal pap discussed at length. ftft> 30 m Orders: URINALYSIS, WITH MICROSCOPIC Malvin Hussein, [facility]10-28-2024 History of Present illness Narrative* Malvin Hussein MD - 03/10/2024 8:59 AM EDT Travel Clerk offered: Patient accepts, visit chaperoned by Michelle Whitley. Hitesh Krueger is a 38 year old female who presents for problem visit to review ultrasound and discuss debris in urine on ultrasound.. HPI: HMB resolved, Hx of HGSIL/Leep and recent PAP and HPV returned unsatisfactory for evaluation and + High risk HPV.. 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 Vitamin D deficiency PAST SURGICAL HISTORY Procedure Laterality Date DELIVERY ONLY , low cervical X 2 CONIZATION CERVIX W/WO D&C RPR ELTRD EXC 2007 LEEP-Cervix with only mild dysplasia found S LASER CO2 03/28 KELLEN III TONSILLECTOMY PRIMARY/SECONDARY <AGE 14 Tonsillectomy FAMILY HISTORY Problem Relation Age of Onset Heart Mother Hypertension Mother Arthritis Father Emphysema Paternal Grandmother Social History Tobacco Use Smoking status: Former Current packs/day: 0.00 Average packs/day: 0.5 packs/day for 4.0 years (2.0 ttl pk-yrs) Types: Cigarettes Start date: 04/22/2004 Quit date: 04/22/2008 Years since quittin.8 Smokeless tobacco: Never Vaping Use Vaping status: Never Used Substance Use Topics Alcohol use: No Drug use: Not Currently Current Outpatient Medications Medication Sig WEGOVY 2.4 mg/0.75 mL pen injector Inject 2.4 mg subcutaneously one time a week. VITAMIN D2 1,250 mcg (50,000 unit) capsule Take 1 capsule by mouth one time a week. Amphetamine-Dextroamphetamine (ADDERALL) 30 mg tablet Take 30 mg by mouth once daily. busPIRone (BUSPAR) 5 mg tablet Take by mouth. (Patient not taking: Reported on 02/27/2024) DUREZOL 0.05 % (Patient not taking: Reported on 02/27/2024) SUMAtriptan (IMITREX) 100 mg tablet take 1 (ONE) tab BY MOUTH at onset of headache; if no relief, may repeat 1 (ONE) tab after at least 2 (TWO) HOURS; max = 2 (TWO) tabs/24 GWENDOLYN (Patient not taking: Reported on 02/27/2024) SUMAtriptan (IMITREX) 50 mg tablet Take one tablet every two hours as needed for headache. Max 2 tablets per day. (Patient not taking: Reported on 02/27/2024) topiramate (TOPAMAX) 100 mg tablet Take 100 mg by mouth twice daily. (Patient not taking: Reported on 02/27/2024) ibuprofen (MOTRIN) 600 mg tablet Take 1 tablet by mouth every 6 hours as needed. (Patient taking differently: Take 600 mg by mouth every 6 hours.) buPROPion XL (WELLBUTRIN XL) 150 mg 24 hr tablet Take 150 mg by mouth once daily. (Patient not taking: Reported on 02/27/2024) No current facility-administered medications for this visit. Allergies As of Date: 03/10/2024 Allergen Noted Reaction ADHESIVE TAPE (ROSINS) 05/23/2008 Rash, Swelling, and Itching INDERAL [PROPRANOLOL] 11/19/2020 Vomiting LATEX 11/09/2011 Rash Fully Assessed 11/19/2020 REVIEW OF SYSTEMS Abdomen: No bloating, early satiety, indigestion, or increased flatulence. No abdominal pain, nausea, vomiting, diarrhea, or constipation. Bladder: No dysuria, gross hematuria, urinary frequency, urinary urgency, or incontinence. Breast: No breast lumps, nipple d/c, overlying skin changes, redness or skin retraction. Expanded ROS: N/A Allergies and current medication updated:Yes SENSITIVE EXAM: Sensitive exam not performed. EXAM: LMP 02/10/2024 GENERAL: pleasant, female in no apparent distress deferred / declined ASSESSMENT AND PLAN: Assessment & Plan Encounter for screening for malignant neoplasm of cervix Rescheduled for pap UA submitted interested in HPV vaccine HPV and abnormal pap discussed at length. ftft> 30 m Orders: URINALYSIS, WITH MICROSCOPIC Malvin Hussein MD documented [facility] encounter[facility] NoteHNO ID: [id number] Author: ANJELICA CAMPUZANO MD Service: ? Author Type: Physician Type: Progress Notes Filed: 03/08/2024 00:23 Note Text: The patient presents for requested ultrasound. Full report available in the Imaging tab in [employer]. Anjelica Campuzano [facility]10-26-2024 History of Present illness Narrative* Anjelica Campuzano MD - 03/08/2024 12:11 AM EDT The patient presents for requested ultrasound. Full report available in the Imaging tab in [employer]. Anjelica Campuzano MD documented in this encounterJ[facility]. [facility]10-[facility]24 NoteHNO ID: [id number] Author: MALVIN HUSSEIN MD Service: ? Author Type: Physician Type: Progress Notes Filed: 02/27/2024 10:42 Note Text: Hitesh Krueger is a 38 year old female who presents for problem visit with c/o HMB on paraguard since 02/09 along with cramping and abdominal pain. Note hx of abnormal pap and negative cx bx in 2017 with +HR/HPV. No pap since. . 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 Vitamin D deficiency PAST SURGICAL HISTORY Procedure Laterality Date DELIVERY ONLY , low cervical X 2 CONIZATION CERVIX W/WO DANDC RPR ELTRD EXC 2007 LEEP-Cervix with only mild dysplasia found S LASER CO2 03/28 KELLEN III TONSILLECTOMY PRIMARY/SECONDARY Tonsillectomy FAMILY HISTORY Problem Relation Age of Onset Heart Mother Hypertension Mother Arthritis Father Emphysema Paternal Grandmother Social History Tobacco Use Smoking status: Former Current packs/day: 0.00 Average packs/day: 0.5 packs/day for 4.0 years (2.0 ttl pk-yrs) Types: Cigarettes Start date: 04/22/2004 Quit date: 04/22/2008 Years since quittin.8 Smokeless tobacco: Never Vaping Use Vaping status: Never Used Substance Use Topics Alcohol use: No Drug use: Not Currently Current Outpatient Medications Medication Sig WEGOVY 2.4 mg/0.75 mL pen injector Inject 2.4 mg subcutaneously one time a week. VITAMIN D2 1,250 mcg (50,000 unit) capsule Take 1 capsule by mouth one time a week. Amphetamine-Dextroamphetamine (ADDERALL) 30 mg tablet Take 30 mg by mouth once daily. ibuprofen (MOTRIN) 600 mg tablet Take 1 tablet by mouth every 6 hours as needed. (Patient taking differently: Take 600 mg by mouth every 6 hours.) busPIRone (BUSPAR) 5 mg tablet Take by mouth. (Patient not taking: Reported on 02/27/2024) DUREZOL 0.05 % (Patient not taking: Reported on 02/27/2024) SUMAtriptan (IMITREX) 100 mg tablet take 1 (ONE) tab BY MOUTH at onset of headache; if no relief, may repeat 1 (ONE) tab after at least 2 (TWO) HOURS; max = 2 (TWO) tabs/24 GWENDOLYN (Patient not taking: Reported on 02/27/2024) SUMAtriptan (IMITREX) 50 mg tablet Take one tablet every two hours as needed for headache. Max 2 tablets per day. (Patient not taking: Reported on 02/27/2024) topiramate (TOPAMAX) 100 mg tablet Take 100 mg by mouth twice daily. (Patient not taking: Reported on 02/27/2024) buPROPion XL (WELLBUTRIN XL) 150 mg 24 hr tablet Take 150 mg by mouth once daily. (Patient not taking: Reported on 02/27/2024) No current facility-administered medications for this visit. Allergies As of Date: 02/27/2024 Allergen Noted Reaction ADHESIVE TAPE (ROSINS) 05/23/2008 Rash, Swelling, and Itching INDERAL [PROPRANOLOL] 11/19/2020 Vomiting LATEX 11/09/2011 Rash Fully Assessed 11/19/2020 REVIEW OF SYSTEMS Abdomen: No bloating, early satiety, indigestion, or increased flatulence. No abdominal pain, nausea, vomiting, diarrhea, or constipation. Bladder: No dysuria, gross hematuria, urinary frequency, urinary urgency, or incontinence. Breast: No breast lumps, nipple d/c, overlying skin changes, redness or skin retraction. Expanded ROS: N/A Allergies and current medication updated:Yes SENSITIVE EXAM: The sensitive examination was discussed with the Patient or Patient's Authorized Vice President Education. As applicable, any other physician, advance practice provider, medical student, or other health professional student that will be observing or involved in the sensitive examination for educational or training purposes was discussed with the Patient or Authorized Vice President Education. The Patient or Authorized Vice President Education has agreed to proceed with the sensitive examination. (Sensitive examination includes inspection and/or palpation of the breasts, pelvis, prostate and anorectal regions). EXAM: BP 132/74 Wt 185 lb (83.9kg) LMP 02/10/2024 GENERAL: pleasant, female in no apparent distress HEENT: ABDOMEN: soft, non-tender, and no masses PELVIC: external genitalia normal, normal Bartholin's glands, urethra, [place]'s glands, no vulvar lesions, no cervical lesions, good vaginal support, physiologic discharge present, normal appearing perineal body and perianal region, and noting small amount of clot in vagina. BIMANUAL: uterus normal size, shape and consistency, anteverted, no adnexal masses, non-tender, and no cervical motion tenderness INTOLERANCE OF ESTROG (more content not included)...[facility] 02-27-2024 History of Present illness Narrative* Malvin Hussein MD - 02/27/2024 9:49 AM EDT Hitesh Krueger is a 38 year old female who presents for problem visit with c/o HMB on paraguard since 02/09 along with cramping and abdominal pain. Note hx of abnormal pap and negative cx bx in 2017 with +HR/HPV. No pap since. . 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 Vitamin D deficiency PAST SURGICAL HISTORY Procedure Laterality Date DELIVERY ONLY , low cervical X 2 CONIZATION CERVIX W/WO D&C RPR ELTRD EXC 2007 LEEP-Cervix with only mild dysplasia found S LASER CO2 03/28 KELLEN III TONSILLECTOMY PRIMARY/SECONDARY <AGE 14 Tonsillectomy FAMILY HISTORY Problem Relation Age of Onset Heart Mother Hypertension Mother Arthritis Father Emphysema Paternal Grandmother Social History Tobacco Use Smoking status: Former Current packs/day: 0.00 Average packs/day: 0.5 packs/day for 4.0 years (2.0 ttl pk-yrs) Types: Cigarettes Start date: 04/22/2004 Quit date: 04/22/2008 Years since quittin.8 Smokeless tobacco: Never Vaping Use Vaping status: Never Used Substance Use Topics Alcohol use: No Drug use: Not Currently Current Outpatient Medications Medication Sig WEGOVY 2.4 mg/0.75 mL pen injector Inject 2.4 mg subcutaneously one time a week. VITAMIN D2 1,250 mcg (50,000 unit) capsule Take 1 capsule by mouth one time a week. Amphetamine-Dextroamphetamine (ADDERALL) 30 mg tablet Take 30 mg by mouth once daily. ibuprofen (MOTRIN) 600 mg tablet Take 1 tablet by mouth every 6 hours as needed. (Patient taking differently: Take 600 mg by mouth every 6 hours.) busPIRone (BUSPAR) 5 mg tablet Take by mouth. (Patient not taking: Reported on 02/27/2024) DUREZOL 0.05 % (Patient not taking: Reported on 02/27/2024) SUMAtriptan (IMITREX) 100 mg tablet take 1 (ONE) tab BY MOUTH at onset of headache; if no relief, may repeat 1 (ONE) tab after at least 2 (TWO) HOURS; max = 2 (TWO) tabs/24 GWENDOLYN (Patient not taking: Reported on 02/27/2024) SUMAtriptan (IMITREX) 50 mg tablet Take one tablet every two hours as needed for headache. Max 2 tablets per day. (Patient not taking: Reported on 02/27/2024) topiramate (TOPAMAX) 100 mg tablet Take 100 mg by mouth twice daily. (Patient not taking: Reported on 02/27/2024) buPROPion XL (WELLBUTRIN XL) 150 mg 24 hr tablet Take 150 mg by mouth once daily. (Patient not taking: Reported on 02/27/2024) No current facility-administered medications for this visit. Allergies As of Date: 02/27/2024 Allergen Noted Reaction ADHESIVE TAPE (ROSINS) 05/23/2008 Rash, Swelling, and Itching INDERAL [PROPRANOLOL] 11/19/2020 Vomiting LATEX 11/09/2011 Rash Fully Assessed 11/19/2020 REVIEW OF SYSTEMS Abdomen: No bloating, early satiety, indigestion, or increased flatulence. No abdominal pain, nausea, vomiting, diarrhea, or constipation. Bladder: No dysuria, gross hematuria, urinary frequency, urinary urgency, or incontinence. Breast: No breast lumps, nipple d/c, overlying skin changes, redness or skin retraction. Expanded ROS: N/A Allergies and current medication updated:Yes SENSITIVE EXAM: The sensitive examination was discussed with the Patient or Patient's Authorized Vice President Education. As applicable, any other physician, advance practice provider, medical student, or other health professional student that will be observing or involved in the sensitive examination for educational or training purposes was discussed with the Patient or Authorized Vice President Education. The Patient or Authorized Vice President Education has agreed to proceed with the sensitive examination. (Sensitive examination includes inspection and/or palpation of the breasts, pelvis, prostate and anorectal regions). EXAM: BP 132/74 Wt 185 lb (83.9kg) LMP 02/10/2024 GENERAL: pleasant, female in no apparent distress HEENT: ABDOMEN: soft, non-tender, and no masses PELVIC: external genitalia normal, normal Bartholin's glands, urethra, [place]'s glands, no vulvar lesions, no cervical lesions, good vaginal support, physiologic discharge present, normal appearing perineal body and perianal region, and noting small amount of clot in vagina. BIMANUAL: uterus normal size, shape and consistency, anteverted, no adnexal masses, non-tender, andno cervical motion tenderness INTOLERANCE OF ESTROGEN AND PROGESTERONE IN THE PAST HENCE USING PARAGARD. ASSESSMENT AND PLAN: Pelvic ultrasound to evaluate endometrial lining PAP performed f/u pending results - rto 2 weeks ftft with patient > 45 m Assessment & Plan Screening for malignant neoplasm of cervix Special screening examination for human papillomavirus (HPV) Abnormal uterine bleeding Malvin Hussein MD [facility] Miscellaneous Notes* Telephone Encounter - Hitesh Escalera [facility] - 11/08/2021 2:43 PM EDT Received new patient referral from PCP office. Sent to Dr. Desir for review. DX: Elevated WBC * Telephone Encounter - Hitesh Escalera [facility] - 10/20/2021 2:00 PM EDT Attempted to contact patient's father, no answer and VM is full. If patient/father is to call back in, please inform them we have not received any referral on this patient and they should contact referring provider or [facility] to send again. * Telephone Encounter - August Lui - 10/14/2021 10:58 AM EDT New patient, Dr. Wagner referred patient to [facility] and patient dislikes the provider she seen there yesterday. 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 Records are being faxed to our office. Please call father at [phone] as patient works nights. documented in this encounter[facility] History of Past illness Narrative* Problem Noted Date Resolved Date Gonorrhea 06/18/2009 07/15/2009 Previous delivery, antepartum condition or complication 09/24/2008 04/30/2009 Supervision of other normal 09/24/2008 04/30/2009 documented as of this encounter (statuses as of 04/05/2022) [facility]* Diagnosis Onset Date Resolution Status History of papilledema acute Nonscarring hair loss acute Anxiety and depression chron ic Benign intracranial hypertension chronic Migraine headache chronic ADHD chronic History of papilledema acute Benign intracranial hypertension chronic Migraine headache chronic Encounter for preventative a [facility] examination acute ADHD chronic Tobacco abuse chronic [facility] Work Phone: Evaluation note* Diagnosis Onset Date Resolution Status Benign intracranial hypertension chronic Migraine headache chronic History of papilledema resol chin Migraine headache chronic ADHD chronic Anxiety with flying noneacti ve [facility] Work Phone: Evaluation note* Diagnosis Onset Date Resolution Status ADHD chronic Anxiety with flying noneacti ve ADHD chronic Anxiety and depression chron ic Migraine headache chronic Benign intracranial hypertension resolved History of papilledema resol chin [facility] Work Phone: Evaluation note* Diagnosis Screening for malignant neoplasm of cervix- Primary Screening for malignant neoplasm of the cervix Special screening examination for human papillomavirus (HPV) Abnormal uterine bleeding Unspecified disorder of menstruation and other abnormal bleeding from female genital tract documented in this encounter [facility] Diagnosis Abnormal uterine bleeding- Primary Unspecified disorder of menstruation and other abnormal bleeding from female genital tract Abnormal ultrasound of bladder Nonspecific (abnormal) findings on radiological and other examination of genitourinary organs IUD (intrauterine device) in place Presence of intrauterine contraceptive device [facility] this encounter [facility] Diagnosis Abnormal ultrasound of bladder- Primary Nonspecific (abnormal) findings on radiological and other examination of genitourinary organs documented in this encounter [facility] note* Diagnosis Cervical high risk HPV (human papillomavirus) test positive- Primary Cervical high risk human papillomavirus (HPV) DNA test positive Encounter for screening for malignant neoplasm of cervix Screening for malignant neoplasm of the cervix Encounter for repeat Papanicolaou smear of cervix due to previous unsatisfactory results documented in this encounter [facility] note* Diagnosis Atypical squamous cells cannot exclude high grade squamous intraepithelial lesion on cytologic smear of cervix (ASC-H)- Primary Papanicolaou smear of cervix with atypical squamous cells cannot exclude high grade squamous intraepithelial lesion (ASC-H) Cervical high risk HPV (human papillomavirus) test positive Cervical high risk human papillomavirus (HPV) DNA test positive documented in this encounter [facility] noteNo assessment information availableBlWest Central Community [facility] Services Work Phone: Reason for referral (narrative)* Diagnostic Procedure Only (Routine) - Authorized Specialty Diagnoses / Procedures Referred By Contelder thapa Referred To Contact [facility] Diagnoses Abnormal uterine bleeding Procedures PELVIC US WHI US PELVIC NONOBSTETRIC REAL-TIME IMAGE COMPLETE Malvin Hussein MD [address] [place] [address] [facility] [place] [address] Referral ID Status Reason Start Date Expiration Date Visits Requested Visits Authorized [id number] Authorized Auto-Generat ed Referral 4 05/13/2024 1 1 [facility] for referral (narrative)* Outpatient Procedure (Routine) - New Request Specialty Diagnoses / Procedures Referred By Contelder t Referred To Contact [facility] Diagnoses Atypical squamous cells cannot exclude high grade squamous intraepithelial lesion on cytologic smear of cervix (ASC-H) Cervical high risk HPV (human papillomavirus) test positive Procedures COLPOSCOPY COLPOSCOPY CERVIX BX CERVIX & ENDOCRV CURRETAGE Peace Kim MD [address] [place] [address] [facility] [address] [place] [address] Referral ID Status Reason Start Date Expiration Date Visits Requested Visits Authorized [id number] New Request Auto-Generat ed Referral 4 04/04/2025 1 1 [facility]No reason for referral information availableBrooklyn Medical Services Work Phone: Reason for visit Narrative* Diagnostic Procedure Only (Routine) - Closed Specialty Diagnoses / Procedures Referred By Contac t Referred To Contact [facility] Diagnoses Abnormal uterine bleeding Procedures PELVIC US WHI US PELVIC NONOBSTETRIC REAL-TIME IMAGE COMPLETE Malvin Hussein MD [address] [place] [address] [facility] [address] [place] [address] Referral ID Status Reason Start Date Expiration Date V isits Requested Visits Authorized [id number] Closed Auto-Generate d Referral 02/27/2024 05/13/2024 1 1 [facility] Summary Purpose Family History No Family History Records Found Relationship Condition Age at Onset Recorded Date/T harley mother Hypertension Unknown Migraine headache Unknown Advance Directives No Advanced Directives Records Found Advance Directive Response Recorded Date/ Time Advance Directives No March 10:00am Living Will No March 25 021 10:00am Power of Manager Express No March 25, 2021 10:00am Advance Directive Response Recorded Date/ Time Advance Directives No November 07 7:29am Living Will No November 07, 2021 7:29am Power of Manager Express No November 07 7:29am Advance Directive Response Recorded Date/ Time Advance Directives No November 07 8:29am Living Will No November 07, 2021 8:29am Power of Manager Express No November 07 8:29am Advance Directive Response Recorded Date/ Time Advance Directives No October 02 7:55am Chief Complaint and Reason for Visit Chief Complaint 2 M FU 3 M FU NEEDS FMLA UPDATED 3 M FU GENERALIZED WEAKNESS Reason for Visit History of papillede ma Nonscarring hair loss Anxiety and depression Benign intracranial hypertension Migraine headache ADHD History of papilledema Benign intracranial hypertension Migraine headache Encounter for preventative adult health care examination ADHD Tobacco abuse Chief Complaint 3 M FU FMLA PAPERWORK 3 m fu Reason for Visit Benign intracranial hypertension Migraine headache History of papilledema Migraine headache ADHD Anxiety with flying Chief Complaint 3 m fu 3 M FU 6 M FU Reason for Visit ADHD Anxiety with flying ADHD Anxiety and depression Migraine headache Benign intracranial hypertension History of papilledema Chief Complaint Admit Date L HAND PAIN/CRUSH INJURY October 02, 2024 7:51am XRAY October 02, 2024 7:55a m Chief Complaint Admit Date L HAND PAIN/CRUSH INJURY October 02, 2024 7:51am XRAY October 02, 2024 7:55a m L shoulder pain December 17, 2024 7:4 9am Reason for Visit Admit Date Contusion of left hand including fingers October 02, 2024 7:51am Additional Source Comments INFORMATION SOURCE (unrecogn ized section and content) DATE CREATED AUTHOR 07/02/2018 [facility] ([place]) DATE CREATED AUTHOR AUTHOR'S ORGANIZ ATION 05/02/2024 [facility] DATE CREATED AUTHOR AUTHOR'S ORGANIZ ATION 12/19/2024 [facility] Goals (unrecognized section and content) Goals may be documented in a n alternate sectionGoals may be documented in an alternate sectionGoals may be documented in an alternate sectionGoals may be documented in an alternate sectionGoals may be documented in an alternate sectionGoals may be documented in an alternate section Source Comments (unrecognize d section and content) In the event this informatio n is protected by the Federal Confidentiality of Alcohol and Drug Abuse Patient Records regulations: The Federal rules restrict any use of the information to criminally investigate or prosecute any alcohol or drug abuse patient.[facility] HospitalIn the event this information is protected by the Federal Confidentiality of Alcohol and Drug Abuse Patient Records regulations: The Federal rules restrict any use of the information to criminally investigate or prosecute any alcohol or drug abuse patient.[facility] HospitalIn the event this information is protected by the Federal Confidentiality of Alcohol and Drug Abuse Patient Records regulations: The Federal rules restrict any use of the information to criminally investigate or prosecute any alcohol or drug abuse patient.[facility] HospitalIn the event this information is protected by the Federal Confidentiality of Alcohol and Drug Abuse Patient Records regulations: The Federal rules restrict any use of the information to criminally investigate or prosecute any alcohol or drug abuse patient.[facility] HospitalIn the event this information is protected by the Federal Confidentiality of Alcohol and Drug Abuse Patient Records regulations: The Federal rules restrict any use of the information to criminally investigate or prosecute any alcohol or drug abuse patient.[facility] HospitalIn the event this information is protected by the Federal Confidentiality of Alcohol and Drug Abuse Patient Records regulations: The Federal rules restrict any use of the information to criminally investigate or prosecute any alcohol or drug abuse patient.[facility] HospitalIn the event this information is protected by the Federal Confidentiality of Alcohol and Drug Abuse Patient Records regulations: The Federal rules restrict any use of the information to criminally investigate or prosecute any alcohol or drug abuse patient.[facility] HospitalIn the event this information is protected by the Federal Confidentiality of Alcohol and Drug Abuse Patient Records regulations: The Federal rules restrict any use of the information to criminally investigate or prosecute any alcohol or drug abuse patient.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 Devaughn Jarvis Jr., MD Family Provider Active Reginaldo Tiwari CYLINDER MACHINE OPERATOR, CYLINDER MACHINE OPERATOR-C Primary Care Provider Active Team Status: Inactive Member Role Status Dates Dr. Susan Rollins MD Referring Provider Active Dr. Shadi Meek MD Attending Provider Active Reginaldo Tiwari CYLINDER MACHINE OPERATOR, CYLINDER MACHINE OPERATOR-C Primary Care Provider Active Team Status: Inactive Member Role Status Dates Reginaldo Tiwari CYLINDER MACHINE OPERATOR, CYLINDER MACHINE OPERATOR-C Primary Care Provider, Attending P rovider Active Dr. Susan Rollins MD Referring Provider Active Team Status: Inactive Member Role Status Dates Reginaldo Tiwari CYLINDER MACHINE OPERATOR, CYLINDER MACHINE OPERATOR-C Primary Care Provide r, Attending Provider, Referring Provider Active Team Status: Inactive Member Role Status Dates Reginaldo Tiwari CYLINDER MACHINE OPERATOR, CYLINDER MACHINE OPERATOR-C Primary Care Provider, Referring P rovider Active Dr. Shadi Meek MD Attending Provider Active Wearing Apparel Presser Relationship Specialty Start Date End Date Susan Rollins MD [address] [place] [address] PCP - General Internal Medicine 11/08/21 Wearing Apparel Presser Relationship Specialty Start Date End Date Susan Rollins MD [address] [place] [address] PCP - General Internal Medicine 11/08/21 Wearing Apparel Presser Relationship Specialty Start Date End Date Susan Rollins MD [address] [place] [address] PCP - General Internal Medicine 11/08/21 Wearing Apparel Presser Relationship Specialty Start Date End Date Susan Rollins MD [address] [place] [address] PCP - General Internal Medicine 11/08/21 Wearing Apparel Presser Relationship Specialty Start Date End Date Susan Rollins MD [address] [place], [place] [address] PCP - General Internal Medicine 11/08/21 Team Status: Active Member Role Status Dates Dr. Devaughn Jarvis Jr., MD Family Provider Active Reginaldo Tiwari VSC, CYLINDER MACHINE OPERATOR-C Primary Care Provider Active Team Status: Active Member Role Status Dates Reginaldo Tiwari VSC, CYLINDER MACHINE OPERATOR-C Primary Care Provider Active Start: October 02, 2024 Reginaldo Arzolader VSC, CYLINDER MACHINE OPERATOR-C Referring Provider Active S tart: October 02, 2024 Randolph SANDOVAL PA Attending Provider Active Sta rt: October 02, 2024 Team Status: Inactive Member Role Status Dates Reginaldo Arzolader VSC, CYLINDER MACHINE OPERATOR-C Primary Care Provider Active Start: October 02, 2024 End: October 02, 2024 Dr. Cristofer Dominguez MD Attending Provider Active S tart: October 02, 2024 End: October 02, 2024 Wearing Apparel Presser Relationship Specialty Start Date End Date Susan Rollins MD [address] [facility] [place] [address] PCP - General Internal Medicine 11/08/21 Team Status: Active Member Role/Relationship Status Dates Dr. Devaughn Jarvis Jr., MD Family Provider Active Reginaldo Tiwari VSC, CYLINDER MACHINE OPERATOR-C Primary Care Provider Active Team Status: Inactive Member Role/Relationship Status Dates Reginaldo Arzolader VSC, CYLINDER MACHINE OPERATOR-C Primary Care Provider Active Start: October 02, 2024 End: October 02, 2024 Reginaldo Tiwari VSC, CYLINDER MACHINE OPERATOR-C Referring Provider Active S tart: October 02, 2024 End: October 02, 2024 Randolph SANDOVAL PA Attending Provider Active Sta rt: October 02, 2024 End: October 02, 2024 Team Status: Inactive Member Role/Relationship Status Dates Reginaldo Arzolader VSC, CYLINDER MACHINE OPERATOR-C Primary Care Provider Active Start: October 02, 2024 End: October 02, 2024 Dr. Cristofer Dominguez MD Attending Provider Active S tart: October 02, 2024 End: October 02, 2024 Team Status: Inactive Member Role/Relationship Status Dates Reginaldo LORENZANA, CYLINDER MACHINE OPERATOR-C Primary Care Provider Active Start: December 17, 2024 End: December 17, 2024 Reginaldo LORENZANA, CYLINDER MACHINE OPERATOR-C Referring Provider Active S tart: December 17, 2024 End: December 17, 2024 Rahul SANDOVAL, PA Attending Provider Active Start: December 17, 2024 End: December 17, 2024 FOR RECORDS PERTAINING TO PATIENTS WHO ARE OR HAVE BEEN ENROLLED IN A CHEMICAL DEPENDENCY/SUBSTANCEABUSE PROGRAM, SOME INFORMATION MAY BE OMITTED. This clinical summary was aggregated from multiple sources. Caution should be exercised in using it in the provision of clinical care. This summary normalizes information from multiple sources, and as a consequence, information in this document may materially change the coding, format and clinical context of patient data. In addition, data may be omitted in some cases. CLINICAL DECISIONS SHOULD BE BASED ON THE PRIMARY CLINICAL RECORDS. [email or web address] provides no warranty or guarantee of the accuracy or completeness of information in this document.
== END | disposition home or self-care (01) ==
LOC: RAD 08:20
PROVIDERS: PCP Nurse Practitioner Family; Referring Provider Nurse Practitioner Family; Visit Provider Nurse Practitioner Family
DX: M25.512 Pain in left shoulder (principal)
CPT/HCPCS: 73030